=== PATIENT | male | born 1945 | race Caucasian/White ===

== ENCOUNTER → 2016-07-16 | Outpatient (CLI) | payer BC ==
[~2016-07-16] MED LIST: CRG3125 PO; SYN50 PO
[2016-07-16 13:14] LABS: BASO % 0.2 %; BASO ABS # 0.01 K/uL (0-0.2); COMPLETE YES; EOS % 0.9 %; HEMATOCRIT 39.3 % (42-52); IG% 0.2 %; LYMPH % 27.4 %; LYMPH ABS # 1.27 K/uL (1.2-3.4); MEAN CELL VOLUME 92.7 fL (80-100); MEAN CORPUSCULAR HEMOGLOBIN 31.4 pg (25-34); MEAN CORPUSCULAR HGB CONC 33.8 g/dl (32-36); MEAN PLATELET VOLUME 11.7 fL (7.4-10.4); MONO % 6.5 %; NEUT % 64.8 %; PLATELET COUNT 157 K/uL (130-400); RED BLOOD COUNT 4.24 M/uL (4.7-6.1); WHITE BLOOD COUNT 4.63 K/uL (4.8-10.8)
[2016-07-16 13:24] LABS: URINE APPEARANCE CLEAR (CLEAR); URINE BILIRUBIN NEG (NEG); URINE COLOR YELLOW; URINE EPITHELIAL CELL AUTO 0-5 /lpf (0-5); URINE NITRITE NEG (NEG); URINE SPECIFIC GRAVITY 1.009 (1.000-1.030); UROBILINOGEN NEG (NEG)
[2016-07-16 13:28] LABS: MANUAL MICROSCOPIC REQUIRED? NO; REVIEW REQ? NO
[2016-07-16 13:45] LABS: BLOOD UREA NITROGEN 12 mg/dl (7-18); BUN/CREATININE RATIO 7.6 (10-20); CALCIUM 9.2 mg/dl (8.5-10.1); CARBON DIOXIDE 27 mmol/L (21-32); CHLORIDE 107 mmol/L (98-107); GLUCOSE 87 mg/dl (70-99); MAGNESIUM 2.3 mg/dl (1.8-2.4); POTASSIUM 4.1 mmol/L (3.5-5.1); SODIUM 141 mmol/L (136-145)
[2016-07-16 13:48] LABS: ALB/GLOB RATIO 1.2 (0.9-2); ALKALINE PHOSPHATASE 82 U/L (45-117); ALT/SGPT 31 U/L (12-78); AST/SGOT 25 U/L (15-37)
[2016-07-16 14:10] LABS: URINE PROTIEN/CREAT RATIO 0.1 (0-0.2); URINE TOTAL PROTEIN 7.3 mg/dl (0-11.9)
== END | disposition home or self-care (01) ==
LOC: C.LAB1850 12:05
PROVIDERS: ATTEND Internal Medicine Nephrology
DX: N18.3 Chronic kidney disease, stage 3 (moderate) (principal); E55.9 Vitamin D deficiency, unspecified

== ENCOUNTER → 2016-11-19 | Outpatient (CLI) | payer BC ==
[2016-11-19 14:41] LABS: HEMATOCRIT 40.4 % (42-52); MEAN CELL VOLUME 94.2 fL (80-100); MEAN CORPUSCULAR HEMOGLOBIN 31.5 pg (25-34); MEAN CORPUSCULAR HGB CONC 33.4 g/dl (32-36); PLATELET COUNT 188 K/uL (130-400); RED BLOOD COUNT 4.29 M/uL (4.7-6.1); WHITE BLOOD COUNT 5.05 K/uL (4.8-10.8)
[2016-11-19 14:50] LABS: ALT/SGPT 27 U/L (12-78); BLOOD UREA NITROGEN 15 mg/dl (7-18); BUN/CREATININE RATIO 10.1 (10-20); CALCIUM 9.1 mg/dl (8.5-10.1); CARBON DIOXIDE 27 mmol/L (21-32); CHLORIDE 110 mmol/L (98-107); GLUCOSE 93 mg/dl (70-99); MAGNESIUM 2.1 mg/dl (1.8-2.4); POTASSIUM 4.7 mmol/L (3.5-5.1); SODIUM 142 mmol/L (136-145)
[2016-11-19 14:52] LABS: URINE APPEARANCE CLEAR (CLEAR); URINE BILIRUBIN NEG (NEG); URINE COLOR YELLOW; URINE EPITHELIAL CELL AUTO 0-5 /lpf (0-5); URINE NITRITE NEG (NEG); URINE PH 7.5 (4.5-7.5); URINE SPECIFIC GRAVITY 1.012 (1.000-1.030); UROBILINOGEN NEG (NEG)
[2016-11-19 14:53] LABS: ALB/GLOB RATIO 1.3 (0.9-2); ALKALINE PHOSPHATASE 83 U/L (45-117); AST/SGOT 29 U/L (15-37)
[2016-11-19 14:56] LABS: URINE PROTIEN/CREAT RATIO 0.1 (0-0.2); URINE TOTAL PROTEIN 10.1 mg/dl (0-11.9)
[2016-11-19 15:04] LABS: MANUAL MICROSCOPIC REQUIRED? NO; REVIEW REQ? NO
== END | disposition home or self-care (01) ==
LOC: C.LAB1850 12:33
PROVIDERS: ATTEND Internal Medicine Nephrology
DX: E03.9 Hypothyroidism, unspecified (principal); N18.3 Chronic kidney disease, stage 3 (moderate); E55.9 Vitamin D deficiency, unspecified; D64.9 Anemia, unspecified

== ENCOUNTER → 2016-12-04 | Outpatient (CLI) | payer BC | END | disposition home or self-care (01) | LOC: C.LAB 10:39 | PROVIDERS: ATTEND General Practice | DX: A69.20 Lyme disease, unspecified (principal) ==

== ENCOUNTER → 2016-12-14 | Outpatient (CLI) | payer BC ==
--- NOTE | 2016-12-14 09:49 | DIAGNOSTIC IMAGING REPORT ---
ABDOMEN COMPLETE (US) CLINICAL HISTORY: 71 years-old Male with EPIGASTRIC PAIN. Symptoms are acute in nature. COMPARISON: Renal ultrasound 10/15/2015 TECHNIQUE: Multiple real time sonographic images of the abdomen were obtained assessing jasso-scale appearance. FINDINGS: PANCREAS: The pancreas is partially obscured by bowel gas. The visualized portions of the pancreas are normal without focal lesion or pancreatic duct dilatation. LIVER: The liver demonstrates a homogeneous parenchymal echotexture. There is no intrahepatic bile duct dilation, focal lesion, or contour nodularity. Liver measures up to 14.5 cm. There is no ascites. GALLBLADDER: The gallbladder is fluid-filled without cholelithiasis, wall thickening, or pericholecystic fluid. Negative sonographic Salcedo's sign. The common bile duct measures 0.4 cm. RIGHT KIDNEY: The right kidney measures 10.0 x 3.8 x 5.4 cm. Right kidney again appears to be mildly echogenic. No nephrolithiasis or hydronephrosis. LEFT KIDNEY: The left kidney measures 10.1 x 4.6 x 5.1 cm . Partially exophytic cyst of the interpolar left kidney is seen, 1.9 x 1.5 x 1.6 cm. Left kidney is again mildly echogenic. No nephrolithiasis or hydronephrosis. SPLEEN: The spleen measures 7.3 cm and is normal in echotexture. No focal lesions are identified. VASCULATURE: Proximal abdominal aorta measures up to 2.1 cm in AP dimension. Distal abdominal aorta measures up to 2.0 cm. Bilateral common iliac arteries appear normal in caliber measuring up to 1.1 cm. IMPRESSION: 1. No evidence of cholelithiasis, acute cholecystitis or biliary ductal dilation. 2. Mildly increased echogenicity of the renal parenchyma is again seen bilaterally suggesting underlying medical renal disease. The above report was generated using voice recognition software. It may contain grammatical, syntax or spelling errors. Electronically signed by: Elijah Irving M.D. 12/14/2016 9:47 AM Dictated Date/Time: 12/14/2016 9:36 AM
== END | disposition home or self-care (01) ==
LOC: C.ULTR 08:56
PROVIDERS: ATTEND Internal Medicine Gastroenterology
DX: R10.13 Epigastric pain (principal)

== ENCOUNTER → 2016-12-14 | Outpatient (CLI) | payer BC ==
[2016-12-14 11:44] LABS: BASO % 0.5 %; BASO ABS # 0.02 K/uL (0-0.2); COMPLETE YES; EOS % 1.1 %; HEMATOCRIT 42.5 % (42-52); IG% 0.3 %; LYMPH % 31.4 %; LYMPH ABS # 1.17 K/uL (1.2-3.4); MEAN CORPUSCULAR HEMOGLOBIN 31.1 pg (25-34); MEAN CORPUSCULAR HGB CONC 33.4 g/dl (32-36); MONO % 7.8 %; NEUT % 58.9 %; PLATELET COUNT 203 K/uL (130-400); RED BLOOD COUNT 4.57 M/uL (4.7-6.1); WHITE BLOOD COUNT 3.73 K/uL (4.8-10.8)
[2016-12-14 12:09] LABS: ALT/SGPT 26 U/L (12-78); BLOOD UREA NITROGEN 17 mg/dl (7-18); BUN/CREATININE RATIO 11.1 (10-20); CALCIUM 9.2 mg/dl (8.5-10.1); CARBON DIOXIDE 29 mmol/L (21-32); CHLORIDE 109 mmol/L (98-107); GLUCOSE 92 mg/dl (70-99); POTASSIUM 4.3 mmol/L (3.5-5.1); SODIUM 142 mmol/L (136-145)
[2016-12-14 12:12] LABS: ALB/GLOB RATIO 1.3 (0.9-2); ALKALINE PHOSPHATASE 86 U/L (45-117); AST/SGOT 25 U/L (15-37)
[2016-12-20 01:34] LABS: REFERENCE QUEST TEST REPORT
[2016-12-23 18:28] LABS: ANAPLASMA PHAGOCYTOPHIL DNA NOT DETECTED; CANDIDA AB IgG 1.1; CANDIDA AB IgM 0.4; CYTOMEGALOVIRUS IGG AB >10.00 U/ML; EHRLICHIA CHAFF IGG AB <1:64 (<1:64); EHRLICHIA CHAFF IGM AB <1:20 (<1:20); EPSTEIN BARR VIR CAPSID IGG >750.00 U/ML; RMSF IgM AB Not Detected (Not Detected)
== END | disposition home or self-care (01) ==
LOC: C.LAB 10:16
PROVIDERS: ATTEND General Practice
DX: B37.7 Candidal sepsis (principal); A69.20 Lyme disease, unspecified; E03.2 Hypothyroidism due to medicaments and other exogenous substances; E55.9 Vitamin D deficiency, unspecified; B25.9 Cytomegaloviral disease, unspecified; B96.81 Helicobacter pylori [H. pylori] as the cause of diseases classified elsewhere; B60.0 Babesiosis; B27.90 Infectious mononucleosis, unspecified without complication; A77.0 Spotted fever due to Rickettsia rickettsii; A44.0 Systemic bartonellosis; R10.13 Epigastric pain

== ENCOUNTER → 2017-03-18 | Outpatient (CLI) | payer BC ==
[2017-03-18 15:18] LABS: BLOOD UREA NITROGEN 12 mg/dl (7-18); BUN/CREATININE RATIO 7.9 (10-20); CALCIUM 9.3 mg/dl (8.5-10.1); CARBON DIOXIDE 28 mmol/L (21-32); CHLORIDE 104 mmol/L (98-107); CREATININE 1.49 mg/dl (0.60-1.40); GLUCOSE 96 mg/dl (70-99); PHOSPHORUS 3.4 mg/dl (2.5-4.9); POTASSIUM 4.1 mmol/L (3.5-5.1); SODIUM 141 mmol/L (136-145)
[2017-03-18 15:23] LABS: HEMATOCRIT 41.7 % (42-52); MEAN CELL VOLUME 92.3 fL (80-100); MEAN CORPUSCULAR HEMOGLOBIN 31.4 pg (25-34); MEAN CORPUSCULAR HGB CONC 34.1 g/dl (32-36); MEAN PLATELET VOLUME 11.4 fL (7.4-10.4); PLATELET COUNT 195 K/uL (130-400); RED BLOOD COUNT 4.52 M/uL (4.7-6.1); WHITE BLOOD COUNT 3.89 K/uL (4.8-10.8)
[2017-03-18 16:45] LABS: MANUAL MICROSCOPIC REQUIRED? NO; REVIEW REQ? NO; URINE APPEARANCE CLEAR (CLEAR); URINE BILIRUBIN NEG (NEG); URINE COLOR YELLOW; URINE EPITHELIAL CELL AUTO 0-5 /lpf (0-5); URINE NITRITE NEG (NEG); URINE SPECIFIC GRAVITY 1.011 (1.000-1.030); UROBILINOGEN NEG (NEG)
[2017-03-18 16:48] LABS: URINE PROTIEN/CREAT RATIO 0.1 (0-0.2)
== END | disposition home or self-care (01) ==
LOC: C.LAB1850 11:54
PROVIDERS: ATTEND Internal Medicine Nephrology
DX: R25.1 Tremor, unspecified (principal); G20 Parkinson's disease; N18.3 Chronic kidney disease, stage 3 (moderate); D64.9 Anemia, unspecified

== ENCOUNTER → 2017-07-16 | Outpatient (CLI) | payer BC ==
--- NOTE | 2017-07-16 13:48 | DIAGNOSTIC IMAGING REPORT ---
VIDEO SWALLOW HISTORY: Dysphagia R13.10 TECHNIQUE: Video fluoroscopic evaluation of swallowing was performed in the AP and lateral projections by the speech pathology staff. The patient is fed nectar-thick and thin liquid barium, a barium coated wafer, and barium pudding. FLUOROSCOPY TIME: 1.6 minutes. COMPARISON STUDY: None. FINDINGS: Somewhat disordered oral and hypopharyngeal motility. No significant penetration or aspiration identified. Swallowing function is within normal limits. IMPRESSION: 1. Disordered oral and hypopharyngeal motility. No evidence for aspiration. 2. Please see the speech pathologist report for detailed findings and recommendations. The above report was generated using voice recognition software. It may contain grammatical, syntax or spelling errors. Electronically signed by: Paddy Rutledge M.D. 07/16/2017 1:47 PM Dictated Date/Time: 07/16/2017 1:45 PM
--- NOTE | 2017-07-18 16:00 | SWALLOWING EVALUATION ---
REFERRING SPEECH PATHOLOGIST: n/a HISTORY: This 71 year-old man was referred for a VFSS at [facility] in order to address c/o globus sensation. The patient has a PMH significant for hypothyroidism, diverticulosis, and Lyme disease. The patient attributes onset of all dysphagia to effects of Lyme disease. He also demonstrates essential tremors of the upper extremities that he attributes to effects of Lyme disease. He follows with neurology, a Lyme disease specialist, and other physicians and was referred for this study by otolaryngology. Currently the patient's diet level is regular and it consists of a very strict vegan regimen with use of fermented foods. He reports taking no prescription medications. He denies heartburn, but admits to feelings of esophageal fullness at times. PROCEDURE: The patient was seen in the Radiology Department of [facility] for the VFSS. Cursory examination of the oral cavity revealed adequate dentition. Movement of the articulators was WNL. The patient was seated on a stool and was viewed in both the Anterior-Posterior (A-P) and Lateral planes. Volitional phonation exercises completed in the A-P plane revealed bilateral vocal fold movement and vocal intensity within functional limits. In the lateral plane, the patient was given the following boluses: 1 tsp. thin liquid barium x 2, single swallow thin liquid barium self-presented from a cup, sequential swallows of thin liquid barium self-presented from a cup, 1 tsp. nectar-thick liquid barium, single swallow nectar-thick liquid barium self-presented from a cup, and 1 tsp. barium pudding. The cracker bolus was not given d/t the patient's preference to having no gluten. The patient was then repositioned into the A-P plane and given 1/2" barium tablet and water. RESULTS: Oral Stage: Labial seal, lingual control for oral bolus hold, bolus preparation, lingual movement for bolus transfer, oral clearance and initiation of pharyngeal swallowing were all complete/WNL. No oral-stage dysphagia. Pharyngeal Stage: Velar elevation, laryngeal elevation, anterior hyoid excursion, epiglottic inversion, laryngeal vestibular closure all complete. Pharyngeal stripping wave present. Distention and duration of PES opening was partial as evidenced by partial obstruction of bolus flow with pudding bolus (most viscous). This cleared easily and completely with a second swallow. Tongue base retraction mildly weakened. No penetration or aspiration during this study. There was some, likely age-related, mild weakness in the pharynx that did not have a functional impact on the patient's swallowing ability. The pharyngeal stage would be considered normal. Esophageal Stage: A barium tablet passed freely into the stomach. SUMMARY/RECOMMENDATIONS: This patient presents with mild s/s presbydysphagia without evidence of any impact to patient function or patient safety. The following is recommended: 1. Diet as tolerated. 2. Compensatory Strategies: If uncomfortable with oral intake consider the following: using only warm liquids with meals, using a carrier with medications (apple sauce, yogurt, etc.), alternating food and liquid frequently during meals, choosing slippery, loose foods and avoiding dry, doughy, thick foods 3. Consideration of f/u with gastroenterology if GERD is suspected. Pt does not have "burning", but does have sensations of reflux as reported. 4. The patient had overt s/s anxiety and anger re: his health s/p tick bite. Consider treatments to mitigate these issues. A summary of the results and recommendations was discussed with the patient and his immediately following the study. They verbalized understanding. Thank you for referral of this patient. Please contact me at if any additional information is needed.
== END | disposition home or self-care (01) ==
LOC: C.RAD 12:41
PROVIDERS: ATTEND Physician Assistant
DX: R13.10 Dysphagia, unspecified (principal)

== ENCOUNTER → 2017-09-09 | Outpatient (CLI) | payer BC ==
[2017-09-09 14:30] LABS: HEMATOCRIT 43.1 % (42-52); HEMOGLOBIN 14.6 g/dL (14.0-18.0); MEAN CELL VOLUME 92.7 fL (80-100); MEAN CORPUSCULAR HEMOGLOBIN 31.4 pg (25-34); MEAN CORPUSCULAR HGB CONC 33.9 g/dl (32-36); MEAN PLATELET VOLUME 10.6 fL (7.4-10.4); PLATELET COUNT 198 K/uL (130-400); RED CELL DISTRIBUTION WIDTH CV 12.8 % (11.5-14.5); RED CELL DISTRIBUTION WIDTH SD 43.6 fL (36.4-46.3); WHITE BLOOD COUNT 5.19 K/uL (4.8-10.8)
[2017-09-09 14:45] LABS: BLOOD UREA NITROGEN 8 mg/dl (7-18); CALCIUM 8.9 mg/dl (8.5-10.1); CARBON DIOXIDE 28 mmol/L (21-32); CREATININE 1.33 mg/dl (0.60-1.40); GLUCOSE 92 mg/dl (70-99); POTASSIUM 4.4 mmol/L (3.5-5.1); SODIUM 141 mmol/L (136-145)
[2017-09-09 14:46] LABS: PHOSPHORUS 3.1 mg/dl (2.5-4.9)
== END | disposition home or self-care (01) ==
LOC: C.LAB1850 11:44
PROVIDERS: ATTEND Internal Medicine Nephrology
DX: G20 Parkinson's disease (principal); N18.3 Chronic kidney disease, stage 3 (moderate); D64.9 Anemia, unspecified; E55.9 Vitamin D deficiency, unspecified

== ENCOUNTER → 2017-12-11 | Outpatient (CLI) | payer BC | END | disposition home or self-care (01) | LOC: C.LAB1850 08:21 | PROVIDERS: ATTEND Internal Medicine Endocrinology, Diabetes & Metabolism | DX: G20 Parkinson's disease (principal); C61 Malignant neoplasm of prostate; R32 Unspecified urinary incontinence; E03.9 Hypothyroidism, unspecified ==

== ENCOUNTER 2023-11-24 17:04 | Inpatient (IN) ==
--- NOTE | 2023-11-24 17:17 | Emergency Department Note ---
Impression & Plan Rhabdomyolysis, Severe sepsis, Lactic acidosis, Ground-level fall, Elevated troponin ED Provider Note Name: TALA FLORES Age: 78 Sex: Male Arrives Via: Ambulance Informant: Patient (poor historian), neighbor, EMS ED Provider: Amos Dubois MD Chief Complaint: Weakness Impression: As per impressions above Medical Decision Makin-year-old gentleman with history of Parkinson's, dyslipidemia, neuropathy, CKD, BPH who arrives for evaluation of multiple falls and then found minimally responsive laying on a bar chair. It appears his right arm must been hanging over the back of the chair for quite some time as it is now swollen. He does continue to have movement in the hand without significant pain and pulses are intact at this time. It does appear patient must of fallen several times as he does have some areas of bruising as well as some blood in his mouth. He is quite dehydrated appearing. Per neighbor it sounds like he has been eating or drinking well recently possibly not caring for himself very well as his has been in the hospital and is recently placed in a nursing facility. Given history of trauma and altered mental status he was treated as a trauma alert. Chest and pelvis x-ray unremarkable and a CT of the head, neck, chest, abdomen, pelvis was obtained. These were eventually all unremarkable. Extensive laboratory workup obtained given concerns for possible sepsis. WBC elevated, lactate elevated and with concern for these blood cultures were sent he was empirically given IV antibiotics along with 30 mL /kg normal saline IV fluids. Troponin is elevated I suspect this may be secondary to type II NSTEMI versus purely rhabdomyolysis. CK is 13,000 consistent with significant rhabdo. Being fluid resuscitated for possible sepsis as it is. Patient tolerated fluids without significant respiratory distress. 9:45 PM on 11/24/2023.. Sepsis reevaluation was performed. Completed by me. Patient's blood pressure is stable heart rate is in the 70s and he is appearing much improved. Triage/Nursing Notes reviewed by Me Differential:Infection, dehydration, metabolic abnormality, hypo/hyperglycemia, electrolyte disturbance, anemia, hypoxia, cardiac sources, intracerebral event, toxicologic, neurologic, as well as other pathologies. Vital Signs: reviewed and remarkable for no significant abnormalities Interventions: Normal saline bolus 2 L IV, cefepime IV, vancomycin IV Labs:ED labs Reviewed by me and remarkable for multiple abnormal lab findings including elevated CK, elevated lactate, elevated white blood cell count, elevated procalcitonin, elevated troponin amongst others Imagin view chest x-ray as per my interpretation no infiltrate, effusion or fracture or pneumothorax. 1 view pelvis x-ray as per my interpretation no fracture or dislocation. CT of the head, neck, chest, abdomen, pelvis without IV contrast. As per radiologist no acute traumatic findings. See chart for full findings. EKG:Per My Interpretation: Indication weakness: Poor baseline with a heart rate of 75 appears to be sinus rhythm. Unable to determine QTc. Compared to October 14, 2015 appears to have similar morphology though difficult to fully compare. Cardiac Monitoring: An Order was placed for continuous cardiac monitoring. The monitor shows a rate of 70 with a normal sinus rhythm. Disposition:Hospitalization. Condition: Fair History of Present Illness: 78-year-old gentleman arrives for evaluation following multiple falls and trauma. Patient fell yesterday several times that apparently hit his head. He had been seen since they got back it was in his house yesterday. This afternoon was noted to be slumped over a barstool in his house. His right arm was hanging over the back of the chair and he was leaning to the right. Patient notes his right arm is sore primarily in the armpit. Denies any headaches. Denies any blood thinner use. Patient has a history of Parkinson's, hypothyroidism. Patient does have a previous history of CKD according to the chart. Past Medical History:See Below Home Medications:See Below Allergies:See Below Vitals:Blood Pressure: 146/92, Pulse 90, RR 16, T 36.5C, O2 92% on RA Physical Exam: GENERAL: Patient is unwell, ill appearing and in minimal distress. HEAD: AT/NC EENT: Blood dried throughout oropharynx NECK: No stepoffs nor TTP RESPIRATORY: No dyspnea. Clear to auscultation and equal bilaterally. CARDIOVASCULAR: Regular rate and rhythm.No murmur appreciated. GASTROINTESTINAL: Abdomen soft, non-tender, no peritonitis. BACK: No midline tenderness, no CVA tenderness EXTREMITIES: Severe pain with ROM right shoulder. Moderate swelling and discoloration of right arm. Pulses weak but intact on right. ROM hand without pain. Bruising left anterior pelvis. Edema bilateral lower legs, chronic. Weakness all extremities. NEUROLOGIC: Very difficult to hear patient but does appear to be alert and oriented. Significant tremor. Diffuse weakness right arm worse than the rest of the extremities. SKIN: Moderate skin breakdown with developing ulceration over the right buttock. No rash, no jaundice, no diaphoresis. GCS: 13 (eyes 3, motor 6, verbal 4) ED Course: Times/Reassessments: Patient does seem to be improving with some IV fluids. His more interactive Critical Care: I have personally spent 35 minutes of critical care time in the direct management of this patient. Acute altered mental status with multiple falls found to be in severe rhabdomyolysis with severe sepsis requiring fluid resuscitation and coordination of care.. This was a life/limb threatening event. This 35 minutes is in excess of all separately billable procedures. Amos Dubois MD Past Med/Surg History Problem List (Updated 11/24/23 @ 23:20 by Amos Dubois MD) Elevated troponin (Acute) Ground-level fall (Acute) Lactic acidosis (Acute) Severe sepsis (Acute) Rhabdomyolysis (Acute) Rhabdomyolysis BPH (benign prostatic hyperplasia) Chronic kidney disease, stage 3a Flank pain Cervicalgia Anemia Vitamin D deficiency B12 deficiency Peripheral neuropathy Hypercholesteremia Parkinsons disease H/o Lyme disease Tremor Insomnia (Acute) Anxiety Mixed action and resting tremor Essential tremor Vitamin D deficiency Chronic kidney disease, stage III (moderate) Diverticulosis of colon (without mention of hemorrhage) Febrile illness Hypothyroidism, unspecified Neutropenia Medical History Chronic kidney disease, stage 3a Flank pain Essential tremor Vitamin D deficiency Chronic kidney disease, stage III (moderate) Social History Smoking Status: Never smoker Hx Alcohol Use: No Hx Substance Use: No Preferred Language: Jamaican Visual Impairment: No Limitations Hearing Ability: Normal Beliefs That Will Affect Care: None Current Living Situation: Spouse current occupational status: retired Feels Safe at Home: Yes Diet: regular Seatbelt Use: always Do you think of yourself as: straight/heterosexual Gender Identity: Male Assistive Devices: Walker Allergies Allergies Allergy/AdvReac Type Severity Reaction Status Date / Time gluten Allergy Intermediate GI SYMPTOMS Verified 11/24/23 17:44 milk Allergy Intermediate GI SYMPTOMS Verified 11/24/23 17:44 levofloxacin AdvReac Severe Patient Verified 11/24/23 17:44 states it makes him deathly sick. chicken derived AdvReac Intermediate GI SYMPTOMS Verified 11/24/23 17:44 Grain AdvReac Intermediate GI SYMPTOMS Verified 11/24/23 17:44 Home Meds Home Medications Medication Instructions Recorded Confirmed ergocalciferol (vitamin D2) 1,250 1,250 mcg PO MONTHLY 11/24/23 11/24/23 mcg (50,000 unit) capsule levothyroxine 50 mcg tablet 50 mcg PO Q OTHER DAY 11/24/23 11/24/23 levothyroxine 75 mcg tablet 75 mcg PO Q OTHER DAY 11/24/23 11/24/23 Previous Rx's Medication Instructions Recorded carbidopa 25 mg-levodopa 100 mg 2 tab (2 x 25-100 mg) PO QID 90 11/08/23 tablet (Sinemet) days #720 Tabs Results & Data (ED) Vital Signs Vital Signs - 24 hr 11/24/23 17:13 11/24/23 17:13 11/24/23 17:13 Temperature 36.5 C 36.5 C 36.5 C Temperature Source Oral Oral Pulse Rate 93 H 93 H Pulse Rate [Apical] 93 H Pulse Rhythm [Apical] Pulse Strength [Apical] Respiratory Rate 20 20 20 Respiratory Effort / Characteristics Non-Labored Spontaneous Non-Labored Spontaneous Respiratory Depth Normal Normal Respiratory Pattern Blood Pressure 151/111 H Blood Pressure [Left Arm] 151/111 H Blood Pressure Mean 124 Blood Pressure Mean [Left Arm] 124 Blood Pressure Position Lying Blood Pressure Position [Left Arm] Lying Pulse Oximetry 98 98 98 Oxygen Delivery Method Room Air Room Air Room Air Sepsis Recent Fever Within 48 Hours No Sepsis New/Unexplained Change in Mental Status N/A Sepsis Action Taken by Nursing No Action Required 11/24/23 17:44 11/24/23 17:50 11/24/23 17:56 Temperature Temperature Source Pulse Rate 83 Pulse Rate [Apical] 85 84 Pulse Rhythm [Apical] Pulse Strength [Apical] Respiratory Rate 18 18 Respiratory Effort / Characteristics Spontaneous Spontaneous Respiratory Depth Normal Respiratory Pattern Blood Pressure Blood Pressure [Left Arm] 160/94 H 150/91 H Blood Pressure Mean Blood Pressure Mean [Left Arm] 116 110 Blood Pressure Position Blood Pressure Position [Left Arm] Lying Pulse Oximetry 99 98 Oxygen Delivery Method Room Air Room Air Sepsis Recent Fever Within 48 Hours Sepsis New/Unexplained Change in Mental Status Sepsis Action Taken by Nursing 11/24/23 19:24 11/24/23 20:00 11/24/23 21:00 Temperature Temperature Source Pulse Rate 63 Pulse Rate [Apical] 81 118 H Pulse Rhythm [Apical] Regular Regular Pulse Strength [Apical] Normal Normal Respiratory Rate 20 18 18 Respiratory Effort / Characteristics Non-Labored Spontaneous Non-Labored Spontaneous Respiratory Depth Normal Normal Respiratory Pattern Regular Regular Blood Pressure 151/91 H Blood Pressure [Left Arm] 173/92 H 167/80 H Blood Pressure Mean 111 Blood Pressure Mean [Left Arm] 119 109 Blood Pressure Position Blood Pressure Position [Left Arm] Lying Lying Pulse Oximetry 100 96 96 Oxygen Delivery Method Room Air Room Air Sepsis Recent Fever Within 48 Hours Sepsis New/Unexplained Change in Mental Status Sepsis Action Taken by Nursing 11/24/23 22:00 Temperature Temperature Source Pulse Rate Pulse Rate [Apical] 79 Pulse Rhythm [Apical] Regular Pulse Strength [Apical] Normal Respiratory Rate 18 Respiratory Effort / Characteristics Non-Labored Spontaneous Respiratory Depth Normal Respiratory Pattern Regular Blood Pressure Blood Pressure [Left Arm] 146/84 H Blood Pressure Mean Blood Pressure Mean [Left Arm] 104 Blood Pressure Position Blood Pressure Position [Left Arm] Lying Pulse Oximetry 98 Oxygen Delivery Method Room Air Sepsis Recent Fever Within 48 Hours Sepsis New/Unexplained Change in Mental Status Sepsis Action Taken by Nursing Laboratory Data 11/24/23 17:20 11/24/23 17:20 Lab Results 11/24/23 11/24/23 11/24/23 Range/Units 17:20 17:25 17:52 WBC 21.10 H (4.8-10.8) K/ul RBC 4.48 L (4.70-6.10) M/uL Hgb 13.9 L (14.0-18.0) g/dl POC Hgb 15.0 (14.0-18.0) g/dl Hct 41.3 L (42.0-52.0) % POC Hct 44 (42-52) % MCV 92.2 (80.0-100.0) fL MCH 31.0 (25.0-34.0) pg MCHC 33.7 (32.0-36.0) g/dL RDW Std Deviation 42.4 (36.4-46.3) fL RDW Coeff of [place] 12.6 (11.5-14.5) % Plt Count 253 (130-400) K/uL MPV 10.0 (9.4-12.4) fL Immature Gran % (Auto) 0.9 % Neut % (Auto) 87.9 % Lymph % (Auto) 3.1 % [place] % (Auto) 8.0 % Eos % (Auto) 0.0 % Baso % (Auto) 0.1 % Neut # (Auto) 18.55 H (1.40-6.50) K/uL Lymph # (Auto) 0.66 L (1.20-3.40) K/uL [place] # (Auto) 1.69 H (0.11-0.59) K/uL Eos # (Auto) 0.00 (0.00-0.50) K/uL Baso # (Auto) 0.02 (0.00-0.20) K/uL Immature Gran # (Auto) 0.18 (0.01-0.20) K/uL PT 10.7 (9.0-12.0) Seconds INR 1.0 (0.9-1.1) POC Sodium 142 (135-144) mmol/L Sodium 143 (136-145) mmol/L POC Potassium 4.1 (3.3-5.0) mmol/L Potassium 4.2 (3.5-5.1) mmol/L POC Chloride 105 (101-112) mmol/L Chloride 104 (98-107) mmol/L Carbon Dioxide 22 (21-32) mmol/L POC Total CO2 20 L (24-31) mmol/L Anion Gap 17 H (3-11) POC Anion Gap 22.0 (16-25) mmol/L POC BUN 44 H (7-18) mg/dl BUN 50 H (6-23) mg/dl Creatinine 1.68 H (0.6-1.4) mg/dl POC Creatinine 1.8 H (0.6-1.3) mg/dl Est Cr Clr Drug Dosing 34.1 ml/min Est GFR ( Amer) 44.7 ml/min Est GFR (Non-Af Amer) 38.6 ml/min BUN/Creatinine Ratio 29.8 H (10-20) Glucose 136 H (70-99(Fasting)) mg/dl POC Glucose (other) 130 H (70-99) mg/dl Lactate 2.4 H* (0.4-2.0) mmol/L Calcium 9.8 (8.6-10.3) mg/dl POC Ioniz Calcium Job 1.15 (1.12-1.32) mmol/l Magnesium 2.5 H (1.7-2.4) mg/dl Total Bilirubin 1.1 H (0.2-1.0) mg/dl Direct Bilirubin 0.3 H (0-0.2) mg/dl AST 314 H (13-39) U/L ALT 80 H (7-52) U/L Alkaline Phosphatase 78 (34-104) U/L Total Creatine Kinase 08500 H (30-223) U/L Troponin I High Sens 85.9 H* (0-20) pg/ml Total Protein 7.0 (6.0-8.3) gm/dl Albumin 4.2 (3.4-5.0) gm/dl Procalcitonin 1.82 H (0-0.5) ng/ml Urine Color Urine Appearance (Clear) Urine pH (4.5-7.5) Ur Specific [place] (1.000-1.030) Urine Protein (Negative) Urine Glucose (UA) (Negative) Urine Ketones (Negative) Urine Blood (Negative) Urine Nitrite (Negative) Urine Bilirubin (Negative) Urine Urobilinogen (Negative) Ur Leukocyte Esterase (Negative) Urine WBC (Auto) (0-5) /hpf Urine RBC (Auto) (0-2) /hpf U Hyaline Cast (Auto) (0-2) /lpf U Epithel Cells (Auto) (0-2) /hpf Urine Bacteria (Auto) (None Seen) Hyaline Casts (None Presnt) /lpf Granular Casts (None Prsent) /lpf SARS-CoV-2 (PCR) (Negative) Influenza Type A (PCR) (Neg) Influenza Type B (PCR) (Neg) RSV (RT-PCR) (Neg) 11/24/23 11/24/23 11/24/23 Range/Units 17:56 18:40 19:07 WBC (4.8-10.8) K/ul RBC (4.70-6.10) M/uL Hgb (14.0-18.0) g/dl POC Hgb (14.0-18.0) g/dl Hct (42.0-52.0) % POC Hct (42-52) % MCV (80.0-100.0) fL MCH (25.0-34.0) pg MCHC (32.0-36.0) g/dL RDW Std Deviation (36.4-46.3) fL RDW Coeff of [place] (11.5-14.5) % Plt Count (130-400) K/uL MPV (9.4-12.4) fL Immature Gran % (Auto) % Neut % (Auto) % Lymph % (Auto) % [place] % (Auto) % Eos % (Auto) % Baso % (Auto) % Neut # (Auto) (1.40-6.50) K/uL Lymph # (Auto) (1.20-3.40) K/uL [place] # (Auto) (0.11-0.59) K/uL Eos # (Auto) (0.00-0.50) K/uL Baso # (Auto) (0.00-0.20) K/uL Immature Gran # (Auto) (0.01-0.20) K/uL PT (9.0-12.0) Seconds INR (0.9-1.1) POC Sodium (135-144) mmol/L Sodium (136-145) mmol/L POC Potassium (3.3-5.0) mmol/L Potassium (3.5-5.1) mmol/L POC Chloride (101-112) mmol/L Chloride (98-107) mmol/L Carbon Dioxide (21-32) mmol/L POC Total CO2 (24-31) mmol/L Anion Gap (3-11) POC Anion Gap (16-25) mmol/L POC BUN (7-18) mg/dl BUN (6-23) mg/dl Creatinine (0.6-1.4) mg/dl POC Creatinine (0.6-1.3) mg/dl Est Cr Clr Drug Dosing ml/min Est GFR ( Amer) ml/min Est GFR (Non-Af Amer) ml/min BUN/Creatinine Ratio (10-20) Glucose (70-99(Fasting)) mg/dl POC Glucose (other) (70-99) mg/dl Lactate (0.4-2.0) mmol/L Calcium (8.6-10.3) mg/dl POC Ioniz Calcium Job (1.12-1.32) mmol/l Magnesium (1.7-2.4) mg/dl Total Bilirubin (0.2-1.0) mg/dl Direct Bilirubin (0-0.2) mg/dl AST (13-39) U/L ALT (7-52) U/L Alkaline Phosphatase (34-104) U/L Total Creatine Kinase (30-223) U/L Troponin I High Sens 76.0 H* (0-20) pg/ml Total Protein (6.0-8.3) gm/dl Albumin (3.4-5.0) gm/dl Procalcitonin (0-0.5) ng/ml Urine Color Yellow Urine Appearance Clear (Clear) Urine pH 6.0 (4.5-7.5) Ur Specific [place] 1.025 (1.000-1.030) Urine Protein 2+ H (Negative) Urine Glucose (UA) Negative (Negative) Urine Ketones 2+ H (Negative) Urine Blood 3+ H (Negative) Urine Nitrite Negative (Negative) Urine Bilirubin Negative (Negative) Urine Urobilinogen Negative (Negative) Ur Leukocyte Esterase Trace H (Negative) Urine WBC (Auto) 0-5 (0-5) /hpf Urine RBC (Auto) 0-2 (0-2) /hpf U Hyaline Cast (Auto) 6-10 H (0-2) /lpf U Epithel Cells (Auto) 3-5 H (0-2) /hpf Urine Bacteria (Auto) None Seen (None Seen) Hyaline Casts Present A (None Presnt) /lpf Granular Casts Present A (None Prsent) /lpf SARS-CoV-2 (PCR) NEGATIVE (Negative) Influenza Type A (PCR) Negative (Neg) Influenza Type B (PCR) Negative (Neg) RSV (RT-PCR) Negative (Neg) 11/24/23 Range/Units 20:00 WBC (4.8-10.8) K/ul RBC (4.70-6.10) M/uL Hgb (14.0-18.0) g/dl POC Hgb (14.0-18.0) g/dl Hct (42.0-52.0) % POC Hct (42-52) % MCV (80.0-100.0) fL MCH (25.0-34.0) pg MCHC (32.0-36.0) g/dL RDW Std Deviation (36.4-46.3) fL RDW Coeff of [place] (11.5-14.5) % Plt Count (130-400) K/uL MPV (9.4-12.4) fL Immature Gran % (Auto) % Neut % (Auto) % Lymph % (Auto) % [place] % (Auto) % Eos % (Auto) % Baso % (Auto) % Neut # (Auto) (1.40-6.50) K/uL Lymph # (Auto) (1.20-3.40) K/uL [place] # (Auto) (0.11-0.59) K/uL Eos # (Auto) (0.00-0.50) K/uL Baso # (Auto) (0.00-0.20) K/uL Immature Gran # (Auto) (0.01-0.20) K/uL PT (9.0-12.0) Seconds INR (0.9-1.1) POC Sodium (135-144) mmol/L Sodium (136-145) mmol/L POC Potassium (3.3-5.0) mmol/L Potassium (3.5-5.1) mmol/L POC Chloride (101-112) mmol/L Chloride (98-107) mmol/L Carbon Dioxide (21-32) mmol/L POC Total CO2 (24-31) mmol/L Anion Gap (3-11) POC Anion Gap (16-25) mmol/L POC BUN (7-18) mg/dl BUN (6-23) mg/dl Creatinine (0.6-1.4) mg/dl POC Creatinine (0.6-1.3) mg/dl Est Cr Clr Drug Dosing ml/min Est GFR ( Amer) ml/min Est GFR (Non-Af Amer) ml/min BUN/Creatinine Ratio (10-20) Glucose (70-99(Fasting)) mg/dl POC Glucose (other) (70-99) mg/dl Lactate 1.2 (0.4-2.0) mmol/L Calcium (8.6-10.3) mg/dl POC Ioniz Calcium Job (1.12-1.32) mmol/l Magnesium (1.7-2.4) mg/dl Total Bilirubin (0.2-1.0) mg/dl Direct Bilirubin (0-0.2) mg/dl AST (13-39) U/L ALT (7-52) U/L Alkaline Phosphatase (34-104) U/L Total Creatine Kinase (30-223) U/L Troponin I High Sens (0-20) pg/ml Total Protein (6.0-8.3) gm/dl Albumin (3.4-5.0) gm/dl Procalcitonin (0-0.5) ng/ml Urine Color Urine Appearance (Clear) Urine pH (4.5-7.5) Ur Specific [place] (1.000-1.030) Urine Protein (Negative) Urine Glucose (UA) (Negative) Urine Ketones (Negative) Urine Blood (Negative) Urine Nitrite (Negative) Urine Bilirubin (Negative) Urine Urobilinogen (Negative) Ur Leukocyte Esterase (Negative) Urine WBC (Auto) (0-5) /hpf Urine RBC (Auto) (0-2) /hpf U Hyaline Cast (Auto) (0-2) /lpf U Epithel Cells (Auto) (0-2) /hpf Urine Bacteria (Auto) (None Seen) Hyaline Casts (None Presnt) /lpf Granular Casts (None Prsent) /lpf SARS-CoV-2 (PCR) (Negative) Influenza Type A (PCR) (Neg) Influenza Type B (PCR) (Neg) RSV (RT-PCR) (Neg) Administered Medications Discontinued Medications Sodium Chloride (Nss) 1,000 mls @ 999 mls/hr IV .Q1H1M ONE Stop: 11/24/23 18:13 Last Infusion: 11/24/23 19:00 Dose: Infused Documented By: Admin: 11/24/23 17:52 Dose: 999 mls/hr Documented By: ANGÉLICA Cefepime HCl (Maxipime) 2,000 mg in 20 mls @ 5 mls/min IV NOW STA; Protocol Stop: 11/24/23 18:11 Last Admin: 11/24/23 18:42 Dose: 5 mls/min Documented By: ANGÉLICA Vancomycin HCl 1,250 mg/ (Sodium Chloride) 525 mls @ 200 mls/hr IV NOW ONE Stop: 11/24/23 20:45 Last Infusion: 11/24/23 21:43 Dose: Infused Documented By: Admin: 11/24/23 19:05 Dose: 200 mls/hr Documented By: NIR Sodium Chloride (Nss) 1,000 mls @ 999 mls/hr IV .Q1H1M ONE Stop: 11/24/23 20:05 Last Infusion: 11/24/23 21:10 Dose: Infused Documented By: Admin: 11/24/23 19:09 Dose: 999 mls/hr Documented By: NIR Imaging Data Radiologist's Impression: Cervical Spine CT 11/24/23 17:[address] DOSE: HISTORY: fall, trauma TECHNIQUE: Multiaxial CT images of the cervical spine were performed and reformatted in the sagittal and coronal plane without the use of contrast. A dose lowering technique was utilized adhering to the principles of ALARA. COMPARISON: None. FINDINGS: No fractures. No subluxation. Prevertebral soft tissues and the C1-C2 interval are intact. No pneumothorax. IMPRESSION: No fractures within the cervical spine. ACT 112: Negative or not required by law. Electronically signed by: Slim Ordoñez M.D. 11/24/2023 6:[address] 11/24/23 17:[address] DOSE: HISTORY: trauma to head 24 hrs ago TECHNIQUE: Multiaxial CT images of the head were performed without the use of intravenous contrast. Automated exposure control was utilized for this study. A dose lowering technique was utilized adhering to the principles of ALARA. Comparison: Head CT 10/13/2015. Findings: There is a small retention cyst within the left maxillary sinus. The left mastoid air cells are clear. There are are a few partially opacified right inferior mastoid air cells. The calvarium and skull base are intact. There is no mass, hematoma, midline shift, acute infarct. White matter hypodensity is nonspecific but suggestive of microvascular ischemic change. The ventricles and sulci demonstrate mild age-related involutional changes. Impression: No acute intracranial abnormality. ACT 112: Negative or not required by law. Electronically signed by: Slim Ordoñez M.D. 11/24/2023 6:33 PM Chest X-Ray 11/24/23 17:12 XR chest 1V portable HISTORY: fall, weakness COMPARISON: Chest 10/13/2015. FINDINGS: The lungs are clear. Cardiac silhouette is normal in size. No pleural effusions. No pneumothorax. IMPRESSION: No acute process. ACT 112: Negative or not required by law. Electronically signed by: Slim Ordoñez M.D. 11/24/2023 6:26 PM Pelvis X-Ray 11/24/23 17:21 XR pelvis 1-2V routine CLINICAL HISTORY: trauma COMPARISON STUDY: None. FINDINGS: No fracture or dislocation within the pelvis or hips. The sacrum is intact. Mild degenerative changes within the bilateral hips. Surgical clips seen within the right deep pelvis. Soft tissues are unremarkable. IMPRESSION: No fracture or dislocation within the pelvis or hips. ACT 112: Negative or not required by law. Electronically signed by: Slim Ordoñez M.D. 11/24/2023 6:29 PM Abdomen/Pelvis CT 11/24/23 17:28 CT chest diagnostic wo con, CT abd pelvis wo con CT DOSE: 2275.95 mGy.cm HISTORY: trauma. (PO) TECHNIQUE: Multiaxial CT images of the chest, abdomen, and pelvis were performed without contrast. A dose lowering technique was utilized adhering to the principles of ALARA. COMPARISON: None. FINDINGS: Chest CT: The central airways are patent. No pneumothorax. No pleural effusions. There is a punctate calcified granuloma within the left upper lobe. There is a 4 mm subpleural nodule within the base of the left lower lobe on image 265. There are few additional scattered micronodules within the periphery of the upper lobes measure between 1 and 2 mm in size. These are likely benign. No focal lung consolidations to suggest a pneumonia. No evidence for pulmonary edema. No acute fractures within the chest. The heart is normal in size. No pericardial effusion. Mild calcified plaque within the normal caliber thoracic aorta. No mediastinal or hilar lymphadenopathy. Normal caliber esophagus. Abdomen/pelvis CT: No pneumoperitoneum. No pneumatosis. No acute fractures. Streak artifact from the patient's overlapping left arm results in suboptimal evaluation of the abdomen and pelvis. The unenhanced liver, gallbladder, pancreas, spleen, and right kidney are unremarkable. There is bilateral adrenal gland thickening. This is likely age-related. There is a 2.4 cm exophytic hypodense lesion within the left kidney. This favors a cyst. No hydronephrosis. Calcified plaque within the normal caliber abdominal aorta. No retroperitoneal hematoma or lymphadenopathy. No pelvic fluid. The bladder is unremarkable. Suboptimal evaluation for bowel pathology due to the lack of intravenous and oral contrast. However, there is no definite bowel wall thickening or obstruction. [id number] fecal retention. IMPRESSION: 1. No acute traumatic process within the chest, abdomen, or pelvis. 2. A 4 mm indeterminate subpleural nodule within the left lower lobe. Please refer to the chart below for recommended follow-up. 3. Additional findings as described above. Please refer to below summary of Fleischner criteria recommendations for follow- up of incidental CT nodules (Ananda Daugherty, Guidelines for management of small pulmonary nodules detected on CT scans: A statement from the Fleischner Society, Radiology 237: [phone].) SOLID NODULES Solitary nodule size: <6 mm * Low risk patients: no follow-up needed * high risk patients: optional CT at 12 months Solitary nodule size: 6-8 mm * Low risk patients: follow-up at 6-12 months, then consider further follow-up at 18-24 months * high risk patients: initial follow-up CT at 6-12 months and then at 18-24 months if no change Solitary nodule size: >8 mm * either low or high risk patients - consider follow-up CT at 3 months, and/or CT-PET, and/or biopsy Multiple nodules size: <6 mm * Low risk patients: no routine follow-up * high risk patients: optional CT at 12 months Multiple nodules size: 6-8 mm * Low risk patients: follow-up at 3-6 months, then consider further follow-up at 18-24 months * high risk patients: follow-up at 3-6 months, then at 18-24 months if no change Multiple nodules size: >8 mm * Low risk patients: follow-up at 3-6 months, then consider further follow-up at 18-24 months * high risk patients: follow-up at 3-6 months, then at 18-24 months if no change Note: newly detected indeterminate nodule in persons 35 years of age or older. * Low risk patients: minimal or absent history of smoking and/or other known risk factors * high risk patients: history of smoking or of other known risk factors (e.g. first degree relative with lung cancer, or exposure to asbestos, radon, uranium) * if a nodule up to 8 mm is partly solid or is ground glass further follow-up is required after 24 months to exclude possible slow growing adenocarcinoma (LEXUS) SUBSOLID NODULES Solitary pure ground-glass nodule * nodule size <6 mm - no CT follow-up required * nodule size >=6 mm - follow-up CT at 6-12 months, then every 2 years until 5 years Solitary part-solid nodule * nodule size <6 mm - no CT follow-up required * nodule size >=6 mm - follow-up CT at 3-6 months. If unchanged, and solid component remains <6 mm, then annual follow-up for 5 years Multiple subsolid nodules * nodule size <6 mm - follow-up CT at 3-6 months, consider further follow-up at 2 and 4 years if stable * nodule size >=6 mm - follow-up CT at 3-6 months, subsequent management based on the most suspicious nodule(s) ACT 112: Negative or not required by law. Electronically signed by: Slim Ordoñez M.D. 11/24/2023 6:[address] 11/24/23 17:28 CT chest diagnostic wo con, CT abd pelvis wo con CT DOSE: 2275.95 mGy.cm HISTORY: trauma. (PO) TECHNIQUE: Multiaxial CT images of the chest, abdomen, and pelvis were performed without contrast. A dose lowering technique was utilized adhering to the principles of ALARA. COMPARISON: None. FINDINGS: Chest CT: The central airways are patent. No pneumothorax. No pleural effusions. There is a punctate calcified granuloma within the left upper lobe. There is a 4 mm subpleural nodule within the base of the left lower lobe on image 265. There are few additional scattered micronodules within the periphery of the upper lobes measure between 1 and 2 mm in size. These are likely benign. No focal lung consolidations to suggest a pneumonia. No evidence for pulmonary edema. No acute fractures within the chest. The heart is normal in size. No pericardial effusion. Mild calcified plaque within the normal caliber thoracic aorta. No mediastinal or hilar lymphadenopathy. Normal caliber esophagus. Abdomen/pelvis CT: No pneumoperitoneum. No pneumatosis. No acute fractures. Streak artifact from the patient's overlapping left arm results in suboptimal evaluation of the abdomen and pelvis. The unenhanced liver, gallbladder, pancreas, spleen, and right kidney are unremarkable. There is bilateral adrenal gland thickening. This is likely age-related. There is a 2.4 cm exophytic hypodense lesion within the left kidney. This favors a cyst. No hydronephrosis. Calcified plaque within the normal caliber abdominal aorta. No retroperitoneal hematoma or lymphadenopathy. No pelvic fluid. The bladder is unremarkable. Suboptimal evaluation for bowel pathology due to the lack of intravenous and oral contrast. However, there is no definite bowel wall thickening or obstruction. [id number] fecal retention. IMPRESSION: 1. No acute traumatic process within the chest, abdomen, or pelvis. 2. A 4 mm indeterminate subpleural nodule within the left lower lobe. Please refer to the chart below for recommended follow-up. 3. Additional findings as described above. Please refer to below summary of Fleischner criteria recommendations for follow- up of incidental CT nodules (Ananda Daugherty, Guidelines for management of small pulmonary nodules detected on CT scans: A statement from the Fleischner Society, Radiology 237: [phone].) SOLID NODULES Solitary nodule size: <6 mm * Low risk patients: no follow-up needed * high risk patients: optional CT at 12 months Solitary nodule size: 6-8 mm * Low risk patients: follow-up at 6-12 months, then consider further follow-up at 18-24 months * high risk patients: initial follow-up CT at 6-12 months and then at 18-24 months if no change Solitary nodule size: >8 mm * either low or high risk patients - consider follow-up CT at 3 months, and/or CT-PET, and/or biopsy Multiple nodules size: <6 mm * Low risk patients: no routine follow-up * high risk patients: optional CT at 12 months Multiple nodules size: 6-8 mm * Low risk patients: follow-up at 3-6 months, then consider further follow-up at 18-24 months * high risk patients: follow-up at 3-6 months, then at 18-24 months if no change Multiple nodules size: >8 mm * Low risk patients: follow-up at 3-6 months, then consider further follow-up at 18-24 months * high risk patients: follow-up at 3-6 months, then at 18-24 months if no change Note: newly detected indeterminate nodule in persons 35 years of age or older. * Low risk patients: minimal or absent history of smoking and/or other known risk factors * high risk patients: history of smoking or of other known risk factors (e.g. first degree relative with lung cancer, or exposure to asbestos, radon, uranium) * if a nodule up to 8 mm is partly solid or is ground glass further follow-up is required after 24 months to exclude possible slow growing adenocarcinoma (LEXUS) SUBSOLID NODULES Solitary pure ground-glass nodule * nodule size <6 mm - no CT follow-up required * nodule size >=6 mm - follow-up CT at 6-12 months, then every 2 years until 5 years Solitary part-solid nodule * nodule size <6 mm - no CT follow-up required * nodule size >=6 mm - follow-up CT at 3-6 months. If unchanged, and solid component remains <6 mm, then annual follow-up for 5 years Multiple subsolid nodules * nodule size <6 mm - follow-up CT at 3-6 months, consider further follow-up at 2 and 4 years if stable * nodule size >=6 mm - follow-up CT at 3-6 months, subsequent management based on the most suspicious nodule(s) ACT 112: Negative or not required by law. Electronically signed by: Slim Ordoñez M.D. 11/24/2023 6:50 PM Discharge Plan Visit Data Chief Complaint: Trauma Stated Complaint: FALL, SEMI ALERT, UNABLE TO AMBULATE ED Provider: Amos Dubois Discharge Problem: Rhabdomyolysis, Severe sepsis, Lactic acidosis, Ground-level fall, Elevated troponin Patient Disposition: Admitted As Inpatient Discharge Instructions Interventions: ED Discharge Assessment Last Done: 11/24/23 23:08 Forms Stand Alone Forms: [facility] Prescriptions Prescriptions: No Action carbidopa-levodopa [Sinemet] 25-100 mg tablet 2 tab PO QID 90 Days Qty: 720 3RF levothyroxine 75 mcg tablet 75 mcg PO Q OTHER DAY Rx Instructions: ALTERNATES 75 MCG AND 50 MCG EVERY OTHER DAY. levothyroxine 50 mcg tablet 50 mcg PO Q OTHER DAY Rx Instructions: ALTERNATES 50 MCG AND 75 MCG EVERY OTHER DAY. ergocalciferol (vitamin D2) 1,250 mcg (50,000 unit) capsule 1,250 mcg PO MONTHLY Rx Instructions: 1,250 mcg PO monthly as maintenance therapy; Referrals Referrals: PCP,NO [Primary Care Provider] - Discharge Problem: Rhabdomyolysis Qualifiers: Rhabdomyolysis type: traumatic Encounter type: initial encounter Qualified Code(s): T79.6XXA - Traumatic ischemia of muscle, initial encounter
[2023-11-24 17:37] LABS: Basophils # (auto) 0.02 K/uL (0.00-0.20); Basophils % (auto) 0.1 %; Hematocrit (blood only) 41.3 % (42.0-52.0); Hemoglobin 13.9 g/dl (14.0-18.0); Immature Granulocytes # (auto) 0.18 K/uL (0.01-0.20); Immature Granulocytes % (auto) 0.9 %; Lymphocytes # (auto) 0.66 K/uL (1.20-3.40); Lymphocytes % (auto) 3.1 %; Mean Corpuscular Hgb Conc 33.7 g/dL (32.0-36.0); Mean Corpuscular Volume 92.2 fL (80.0-100.0); Monocytes # (auto) 1.69 K/uL (0.11-0.59); Neutrophils # (auto) 18.55 K/uL (1.40-6.50); Neutrophils % (auto) 87.9 %; Platelet Count 253 K/uL (130-400); RDW Coefficient of Variation 12.6 % (11.5-14.5); RDW Standard Deviation 42.4 fL (36.4-46.3); Red Blood Count 4.48 M/uL (4.70-6.10)
[2023-11-24 17:38] LABS: iSTAT Creatinine 1.8 mg/dl (0.6-1.3); iSTAT Ionized Calcium 1.15 mmol/l (1.12-1.32); iSTAT Potassium 4.1 mmol/L (3.3-5.0)
[2023-11-24] MEDS: SODIUM CHLORIDE 0.9% 1,000 ML IV ONE ×2 (17:52→19:09)
[2023-11-24 17:55] LABS: BUN Creatinine Ratio 29.8 (10-20); Calcium 9.8 mg/dl (8.6-10.3); Creatinine Clr Calc Pharmacy 34.1 ml/min; Est GFR (African American) 44.7 ml/min; Est GFR (Non-African American) 38.6 ml/min; Potassium 4.2 mmol/L (3.5-5.1)
[2023-11-24 18:04] LABS: Prothrombin Time 10.7 Seconds (9.0-12.0)
[2023-11-24 18:06] LABS: Troponin I High Sensitivity 85.9 pg/ml (0-20)
[2023-11-24 18:08] LABS: Albumin Level 4.2 gm/dl (3.4-5.0); Bilirubin Direct 0.3 mg/dl (0-0.2); Bilirubin,Total 1.1 mg/dl (0.2-1.0); Magnesium 2.5 mg/dl (1.7-2.4)
[2023-11-24] MEDS ORDERED: VANCOMYCIN CONSULT ACTIVE PRN (18:08)
--- NOTE | 2023-11-24 18:27 | XRay Report ---
XR chest 1V portable HISTORY: fall, weakness COMPARISON: Chest 10/13/2015. FINDINGS: The lungs are clear. Cardiac silhouette is normal in size. No pleural effusions. No pneumot horax. IMPRESSION: No acute process. ACT 112: Negative or not required by law. Electronically signed by: Slim Ordoñez M.D. 11/24/2023 6:26 PM
--- NOTE | 2023-11-24 18:31 | XRay Report ---
XR pelvis 1-2V routine CLINICAL HISTORY: trauma COMPARISON STUDY: None. FINDINGS: No fracture or dislocation within the pelvis or hips. The sacrum is intact. Mild degenerati ve changes within the bilateral hips. Surgical clips seen within the right deep pelvis. Soft tissues are unremarkable. IMPRESSION: No fracture or dislocation within the pelvis or hips. ACT 112: Negative or not required by law. Electronically signed by: Slim Ordoñez M.D. 11/24/2023 6:29 PM
--- NOTE | 2023-11-24 18:35 | CT Scan Report ---
HEAD CT NONCONTRAST CT DOSE: HISTORY: trauma to head 24 hrs ago TECHNIQUE: Multiaxial CT images of the head were performed without the use of intravenous contrast. A utomated exposure control was utilized for this study. A dose lowering technique was utilized adheri ng to the principles of ALARA. Comparison: Head CT 10/13/2015. Findings: There is a small retention cyst within the left maxillary sinus. The left mastoid air cells are clear. There are are a few partially opacified right inferior mastoid air cells. The calvarium a nd skull base are intact. There is no mass, hematoma, midline shift, acute infarct. White matter hypo density is nonspecific but suggestive of microvascular ischemic change. The ventricles and sulci demo nstrate mild age-related involutional changes. Impression: No acute intracranial abnormality. ACT 112: Negative or not required by law. Electronically signed by: Slim Ordoñez M.D. 11/24/2023 6:33 PM
--- NOTE | 2023-11-24 18:41 | CT Scan Report ---
CERVICAL SPINE CT CT DOSE: HISTORY: fall, trauma TECHNIQUE: Multiaxial CT images of the cervical spine were performed and reformatted in the sagittal and coronal plane without the use of contrast. A dose lowering technique was utilized adhering to th e principles of ALARA. COMPARISON: None. FINDINGS: No fractures. No subluxation. Prevertebral soft tissues and the C1-C2 interval are intact. No pneumothorax. IMPRESSION: No fractures within the cervical spine. ACT 112: Negative or not required by law. Electronically signed by: Slim Ordoñez M.D. 11/24/2023 6:38 PM
[2023-11-24 18:42] LABS: Influenza A virus by PCR Negative (Neg); Influenza B virus by PCR Negative (Neg); RSV by PCR Negative (Neg); SARS CoV2 RNA(COVID-19) Ceph NEGATIVE (Negative)
[2023-11-24] MEDS: CEFEPIME 2,000 MG/20 ML VIAL IV STA (18:42)
--- NOTE | 2023-11-24 18:53 | CT Scan Report ---
CT chest diagnostic wo con, CT abd pelvis wo con CT DOSE: 2275.95 mGy.cm HISTORY: trauma. (PO) TECHNIQUE: Multiaxial CT images of the chest, abdomen, and pelvis were performed without contrast. A dose lowering technique was utilized adhering to the principles of ALARA. COMPARISON: None. FINDINGS: Chest CT: The central airways are patent. No pneumothorax. No pleural effusions. There is a punctate calcified granuloma within the left upper lobe. There is a 4 mm subpleural nodule within the base of the left lower lobe on image 265. There are few additional scattered micronodules within the peripher y of the upper lobes measure between 1 and 2 mm in size. These are likely benign. No focal lung conso lidations to suggest a pneumonia. No evidence for pulmonary edema. No acute fractures within the ches t. The heart is normal in size. No pericardial effusion. Mild calcified plaque within the normal emeli mary thoracic aorta. No mediastinal or hilar lymphadenopathy. Normal caliber esophagus. Abdomen/pelvis CT: No pneumoperitoneum. No pneumatosis. No acute fractures. Streak artifact from the patient's overlapping left arm results in suboptimal evaluation of the abdomen and pelvis. The unenha nced liver, gallbladder, pancreas, spleen, and right kidney are unremarkable. There is bilateral adre nal gland thickening. This is likely age-related. There is a 2.4 cm exophytic hypodense lesion within the left kidney. This favors a cyst. No hydronephrosis. Calcified plaque within the normal caliber a bdominal aorta. No retroperitoneal hematoma or lymphadenopathy. No pelvic fluid. The bladder is unrem arkable. Suboptimal evaluation for bowel pathology due to the lack of intravenous and oral contrast. However, there is no definite bowel wall thickening or obstruction. [id number] fecal retention. IMPRESSION: 1. No acute traumatic process within the chest, abdomen, or pelvis. 2. A 4 mm indeterminate subpleural nodule within the left lower lobe. Please refer to the chart below for recommended follow-up. 3. Additional findings as described above. Please refer to below summary of Fleischner criteria recommendations for follow-up of incidental CT n odules (Ananda Daugherty, Guidelines for management of small pulmonary nodules detected on CT scans: A sta tement from the Fleischner Society, Radiology 237: [phone].) SOLID NODULES Solitary nodule size: <6 mm * Low risk patients: no follow-up needed * high risk patients: optional CT at 12 months Solitary nodule size: 6-8 mm * Low risk patients: follow-up at 6-12 months, then consider further follow-up at 18-24 months * high risk patients: initial follow-up CT at 6-12 months and then at 18-24 months if no change Solitary nodule size: >8 mm * either low or high risk patients - consider follow-up CT at 3 months, and/or CT-PET, and/or biopsy Multiple nodules size: <6 mm * Low risk patients: no routine follow-up * high risk patients: optional CT at 12 months Multiple nodules size: 6-8 mm * Low risk patients: follow-up at 3-6 months, then consider further follow-up at 18-24 months * high risk patients: follow-up at 3-6 months, then at 18-24 months if no change Multiple nodules size: >8 mm * Low risk patients: follow-up at 3-6 months, then consider further follow-up at 18-24 months * high risk patients: follow-up at 3-6 months, then at 18-24 months if no change Note: newly detected indeterminate nodule in persons 35 years of age or older. * Low risk patients: minimal or absent history of smoking and/or other known risk factors * high risk patients: history of smoking or of other known risk factors (e.g. first degree relative with lung cancer, or exposure to asbestos, radon, uranium) * if a nodule up to 8 mm is partly solid or is ground glass further follow-up is required after 24 m onths to exclude possible slow growing adenocarcinoma (LEXUS) SUBSOLID NODULES Solitary pure ground-glass nodule * nodule size <6 mm - no CT follow-up required * nodule size >=6 mm - follow-up CT at 6-12 months, then every 2 years until 5 years Solitary part-solid nodule * nodule size <6 mm - no CT follow-up required * nodule size >=6 mm - follow-up CT at 3-6 months. If unchanged, and solid component remains <6 mm, then annual follow-up for 5 years Multiple subsolid nodules * nodule size <6 mm - follow-up CT at 3-6 months, consider further follow-up at 2 and 4 years if sta ble * nodule size >=6 mm - follow-up CT at 3-6 months, subsequent management based on the most suspiciou s nodule(s) ACT 112: Negative or not required by law. Electronically signed by: Slim Ordoñez M.D. 11/24/2023 6:50 PM
[2023-11-24] MEDS: VANCOMYCIN HCL 1,250 MG in SODIUM CHLORIDE 0.9% 500 ML IV ONE (19:05)
[2023-11-24 19:38] LABS: Appearance Urine Clear (Clear); Bacteria Urine Automated None Seen (None Seen); Bilirubin Urine Negative (Negative); Blood Urine 3+ (Negative); Color Urine Yellow; Glucose Urine UA Negative (Negative); Granular Casts Urine Present /lpf (None Prsent); Hyaline Casts Urine Present /lpf (None Presnt); Ketones Urine 2+ (Negative); Leukocyte Esterase Urine Trace (Negative); Nitrite Urine Negative (Negative); Protein Urine 2+ (Negative); RBC Urine Automated 0-2 /hpf (0-2); Specific Gravity Urine 1.025 (1.000-1.030); Urobilinogen Urine Negative (Negative); WBC Urine Automated 0-5 /hpf (0-5)
--- NOTE | 2023-11-24 22:22 | History & Physical Report ---
Date of Service November 24, 2023 Assessment & Plan (1) Rhabdomyolysis: Plan: 78-year-old male with past medical history significant for parkinsonism, hypothyroidism, CKD stage III, prostate cancer was brought in because of fall and also found to rhabdomyolysis and PO. Patient seems to be in the hospital. Currently living alone. Patient states he ambulates with cane and walker. He cooks his own food. He is vegetarian and likes to cook soft food. And swallows okay. Patient is having a lot of tremors and shakiness. Pressure injury seen on right posterior shoulder. And also there is erythema and swelling with the skin tears seen in the right buttocks region. Right upper extremity swollen. As per ER patient fell several times yesterday and apparently hit his head. Seems neighbors brought him back to his house yesterday. And today's afternoon patient noted to be slumped over a barstool in his house. His right arm was hanging over the back of the chair and was leaning to the right. Some blood is noted in his mouth region and was brought to the hospital. Patient denies any vomiting of blood. Denies any headache. States vision is okay. Denies any headache. Denies runny nose or sore throat or cough. Denies any chest pain or shortness of breath. Denies nausea , denies abdominal pain. He thinks he is moving his bowels and bladder okay. Currently afebrile. Somewhat tachycardic. Patient is shaky. Somewhat difficult to commu nicate with his shakiness but seems alert and oriented x 3 and answering simple questions appropriately.Labs showed WBC 21, creatinine 1.6, initial lactic 2.4 and repeat 1.2, total creatinine kinase 34206, troponin 76, procalcitonin 1.8 [place] 25158 Right upper extremity swollen and mildly erythematous Right buttock region swollen and erythematous and skin tear seen Will follow right upper extremity Doppler and CT scan-biceps/triceps myositis. ortho consult IV fluids Normal Saline 200 mill per hour Repeat CPK in a.m. CT chest and CT abdomen pelvis okay Pelvis x-ray okay CT head okay Cervical spine CT okay Nephrology consult PT OT when stable Leukocytosis Possible cellulitis of right upper extremity and right buttock region and wounds of right shoulder and buttock region Elevated procalcitonin Possible sepsis Initial lactic acid 2.4 repeat is 1.2 Empiric Vanco and Zosyn Will follow cultures Will follow hemodynamics Follow labs Close monitor PO on CKD stage III Presented with creatinine 1.68 Baseline creatinine around 1.1 Avoid nephrotoxic agents Getting fluids Follow repeat labs in a.m. Nephrology consulted Lower extremity edema Seems chronic Will follow echo results questionable GI bleed Some dried blood seen around the mouth region, patient denies vomiting any blood Hemoglobin 13.9 around baseline and am labs 13.8 Will follow stool for Hemoccult IV Protonix 40 mg twice daily for now If any concerns will consult GI Left Leg proximal non occlusive DVT Question of GI bleed but hb stable in 13's even after aggressive fluids starting on iv heparin close monitor for any bleeding Aspiration On the floor patient aspirated on lactulose and requiring oxygen made him NPO Speech evaluation Elevated troponin Troponin 76 Mostly demand ischemia and from rhabdo Will follow serial enzymes and echo Close monitor Parkinsonism Continue home meds when able to PT OT when stable Speech evaluation Hypothyroidism Continue home Synthyroid Follow TSH History of prostate cancer S/p surgery DVT prophylaxis SCDs Disposition Telemetry Full code History of Present Illness Chief Complaint: Fall and rhabdomyolysis Primary Care Provider: NO PCP 78-year-old male with past medical history significant for parkinsonism, hypothyroidism, CKD stage III, prostate cancer was brought in because of fall and also found to rhabdomyolysis and PO. Patient seems to be in the hospital. Currently living alone. Patient states he ambulates with cane and walker. He cooks his own food. He is vegetarian and likes to cook soft food. And swallows okay. Patient is having a lot of tremors and shakiness. Pressure injury seen on right posterior shoulder. And also there is erythema and swelling with the skin tears seen in the right buttocks region. Right upper extremity swollen. As per ER patient fell several times yesterday and apparently hit his head. Seems neighbors brought him back to his house yesterday. And today's afternoon patient noted to be slumped over a barstool in his house. His right arm was hanging over the back of the chair and was leaning to the right. Some blood is noted in his mouth region and was brought to the hospital. Patient denies any vomiting of blood. Denies any headache. States vision is okay. Denies any headache. Denies runny nose or sore throat or cough. Denies any chest pain or shortness of breath. Denies nausea , denies abdominal pain. He thinks he is moving his bowels and bladder okay. Currently afebrile. Somewhat tachycardic. Patient is shaky. Somewhat difficult to communicate with his shakiness but seems alert and oriented x 3 and answering simple questions appropriately. Past medical history. As mentioned above. Past surgical history. Radical prostate removal. Needlepoint biopsy of prostate. Social history. . No smoking. No alcohol use. Family history. Father had prostate cancer. Allergies Allergy/AdvReac Type Severity Reaction Status Date / Time gluten Allergy Intermediate GI SYMPTOMS Verified 11/24/23 17:44 milk Allergy Intermediate GI SYMPTOMS Verified 11/24/23 17:44 levofloxacin AdvReac Severe Patient Verified 11/24/23 17:44 states it makes him deathly sick. chicken derived AdvReac Intermediate GI SYMPTOMS Verified 11/24/23 17:44 Grain AdvReac Intermediate GI SYMPTOMS Verified 11/24/23 17:44 Home Medications Medication Instructions Recorded Confirmed Type carbidopa 25 mg-levodopa 100 mg 2 tab (2 x 25-100 mg) PO QID 90 11/08/23 11/24/23 Rx tablet (Sinemet) days #720 Tabs ergocalciferol (vitamin D2) 1,250 1,250 mcg PO MONTHLY 11/24/23 11/24/23 History mcg (50,000 unit) capsule levothyroxine 50 mcg tablet 50 mcg PO Q OTHER DAY 11/24/23 11/24/23 History levothyroxine 75 mcg tablet 75 mcg PO Q OTHER DAY 11/24/23 11/24/23 History Past Med/Surg History Problem List (Updated 11/24/23 @ 23:20 by Amos Dubois MD) Elevated troponin (Acute) Ground-level fall (Acute) Lactic acidosis (Acute) Severe sepsis (Acute) Rhabdomyolysis (Acute) Rhabdomyolysis BPH (benign prostatic hyperplasia) Chronic kidney disease, stage 3a Flank pain Cervicalgia Anemia Vitamin D deficiency B12 deficiency Peripheral neuropathy Hypercholesteremia Parkinsons disease H/o Lyme disease Tremor Insomnia (Acute) Anxiety Mixed action and resting tremor Essential tremor Vitamin D deficiency Chronic kidney disease, stage III (moderate) Diverticulosis of colon (without mention of hemorrhage) Febrile illness Hypothyroidism, unspecified Neutropenia Medical History Chronic kidney disease, stage 3a Flank pain Essential tremor Vitamin D deficiency Chronic kidney disease, stage III (moderate) Social History Smoking Status: Never smoker Second Hand Exposure: No; Do You Dip or Chew Tobacco: No; Tobacco Cessation Education Requested by Patient: No Hx Alcohol Use: No Hx Substance Use: No Preferred Language: Croatian Communication Ability: Effective Visual Impairment: No Limitations Hearing Ability: Normal Meteorology Professor Required: No Beliefs That Will Affect Care: None Current Living Situation: Spouse current occupational status: retired Other Information That Helps Us Care for You: No Feels Safe at Home: Yes Safety Concerns: Feels Safe At This Time Diet: regular Seatbelt Use: always Do you think of yourself as: straight/heterosexual Gender Identity: Male Assistive Devices: Walker Review of Systems Review of Systems: All systems reviewed & are unremarkable except as noted in HPI & below Physical Exam Physical Exam: General- Tremors. Not in acute distress Head- atraumatic Eyes- PERRL. ENT- oropharynx dry, dry blood seen on lips and mouth Neck- supple, no JVD. Lungs- clear to auscultation no wheezing or crackles Heart- regular rhythm; tachycardia, no murmur, no gallop. Abdomen- normal bowel sounds, soft, nontender, no distension. Extremities- right upper extremity swollen, b/l lower extremity edema present. Neuro- alert, oriented x 3; PERRL, Tremors seen, no facial palsy; no dysarthria; moves extremities with difficulty. Skin- bruise and pressure ulcer seen on posterior aspect of right shoulder. erythema and swelling with skin tear of right buttock region Results & Data Results & Data Vital Signs (Past 12 Hours) Vital Signs Temp Pulse Pulse Resp BP BP Pulse Ox 11/24/23 21:00 118 H 18 167/80 H 96 11/24/23 20:00 81 18 173/92 H 96 11/24/23 19:24 63 20 151/91 H 100 11/24/23 17:56 83 11/24/23 17:50 84 18 150/91 H 98 11/24/23 17:44 85 18 160/94 H 99 11/24/23 17:13 36.5 C 93 H 20 151/111 H 98 11/24/23 17:13 36.5 C 93 H 20 98 11/24/23 17:13 36.5 C 93 H 20 151/111 H 98 O2 Del Method 11/24/23 21:00 Room Air 11/24/23 20:00 Room Air 11/24/23 19:24 11/24/23 17:56 11/24/23 17:50 Room Air 11/24/23 17:44 Room Air 11/24/23 17:13 Room Air 11/24/23 17:13 Room Air 11/24/23 17:13 Room Air Diagnostic Findings Laboratory Results WBC 21.10 K/ul (4.8-10.8) H 11/24/23 17:20 RBC 4.48 M/uL (4.70-6.10) L 11/24/23 17:20 Hgb 13.9 g/dl (14.0-18.0) L 11/24/23 17:20 POC Hgb 15.0 g/dl (14.0-18.0) 11/24/23 17:25 Hct 41.3 % (42.0-52.0) L 11/24/23 17:20 POC Hct 44 % (42-52) 11/24/23 17:25 MCV 92.2 fL (80.0-100.0) 11/24/23 17:20 MCH 31.0 pg (25.0-34.0) 11/24/23 17:20 MCHC 33.7 g/dL (32.0-36.0) 11/24/23 17:20 RDW Std Deviation 42.4 fL (36.4-46.3) 11/24/23 17:20 RDW Coeff of [place] 12.6 % (11.5-14.5) 11/24/23 17:20 Plt Count 253 K/uL (130-400) 11/24/23 17:20 MPV 10.0 fL (9.4-12.4) 11/24/23 17:20 Immature Gran % (Auto) 0.9 % 11/24/23 17:20 Neut % (Auto) 87.9 % 11/24/23 17:20 Lymph % (Auto) 3.1 % 11/24/23 17:20 [place] % (Auto) 8.0 % 11/24/23 17:20 Eos % (Auto) 0.0 % 11/24/23 17:20 Baso % (Auto) 0.1 % 11/24/23 17:20 Neut # (Auto) 18.55 K/uL (1.40-6.50) H 11/24/23 17:20 Lymph # (Auto) 0.66 K/uL (1.20-3.40) L 11/24/23 17:20 [place] # (Auto) 1.69 K/uL (0.11-0.59) H 11/24/23 17:20 Eos # (Auto) 0.00 K/uL (0.00-0.50) 11/24/23 17:20 Baso # (Auto) 0.02 K/uL (0.00-0.20) 11/24/23 17:20 Immature Gran # (Auto) 0.18 K/uL (0.01-0.20) 11/24/23 17:20 PT 10.7 Seconds (9.0-12.0) 11/24/23 17:20 INR 1.0 (0.9-1.1) 11/24/23 17:20 POC Sodium 142 mmol/L (135-144) 11/24/23 17:25 Sodium 143 mmol/L (136-145) 11/24/23 17:20 POC Potassium 4.1 mmol/L (3.3-5.0) 11/24/23 17:25 Potassium 4.2 mmol/L (3.5-5.1) 11/24/23 17:20 POC Chloride 105 mmol/L (101-112) 11/24/23 17:25 Chloride 104 mmol/L (98-107) 11/24/23 17:20 Carbon Dioxide 22 mmol/L (21-32) 11/24/23 17:20 POC Total CO2 20 mmol/L (24-31) L 11/24/23 17:25 Anion Gap 17 (3-11) H 11/24/23 17:20 POC Anion Gap 22.0 mmol/L (16-25) 11/24/23 17:25 POC BUN 44 mg/dl (7-18) H 11/24/23 17:25 BUN 50 mg/dl (6-23) H 11/24/23 17:20 Creatinine 1.68 mg/dl (0.6-1.4) H 11/24/23 17:20 POC Creatinine 1.8 mg/dl (0.6-1.3) H 11/24/23 17:25 Est Cr Clr Drug Dosing 34.1 ml/min 11/24/23 17:20 Est GFR ( Amer) 44.7 ml/min 11/24/23 17:20 Est GFR (Non-Af Amer) 38.6 ml/min 11/24/23 17:20 BUN/Creatinine Ratio 29.8 (10-20) H 11/24/23 17:20 Glucose 136 mg/dl (70-99(Fasting)) H 11/24/23 17:20 POC Glucose (other) 130 mg/dl (70-99) H 11/24/23 17:25 Lactate 1.2 mmol/L (0.4-2.0) 11/24/23 20:00 Calcium 9.8 mg/dl (8.6-10.3) 11/24/23 17:20 POC Ioniz Calcium Job 1.15 mmol/l (1.12-1.32) 11/24/23 17:25 Magnesium 2.5 mg/dl (1.7-2.4) H 11/24/23 17:20 Total Bilirubin 1.1 mg/dl (0.2-1.0) H 11/24/23 17:20 Direct Bilirubin 0.3 mg/dl (0-0.2) H 11/24/23 17:20 AST 314 U/L (13-39) H 11/24/23 17:20 ALT 80 U/L (7-52) H 11/24/23 17:20 Alkaline Phosphatase 78 U/L (34-104) 11/24/23 17:20 Total Creatine Kinase 51680 U/L (30-223) H 11/24/23 17:20 Troponin I High Sens 76.0 pg/ml (0-20) H* 11/24/23 19:07 Total Protein 7.0 gm/dl (6.0-8.3) 11/24/23 17:20 Albumin 4.2 gm/dl (3.4-5.0) 11/24/23 17:20 Procalcitonin 1.82 ng/ml (0-0.5) H 11/24/23 17:20 Urine Color Yellow 11/24/23 18:40 Urine Appearance Clear (Clear) 11/24/23 18:40 Urine pH 6.0 (4.5-7.5) 11/24/23 18:40 Ur Specific [place] 1.025 (1.000-1.030) 11/24/23 18:40 Urine Protein 2+ (Negative) H 11/24/23 18:40 Urine Glucose (UA) Negative (Negative) 11/24/23 18:40 Urine Ketones 2+ (Negative) H 11/24/23 18:40 Urine Blood 3+ (Negative) H 11/24/23 18:40 Urine Nitrite Negative (Negative) 11/24/23 18:40 Urine Bilirubin Negative (Negative) 11/24/23 18:40 Urine Urobilinogen Negative (Negative) 11/24/23 18:40 Ur Leukocyte Esterase Trace (Negative) H 11/24/23 18:40 Urine WBC (Auto) 0-5 /hpf (0-5) 11/24/23 18:40 Urine RBC (Auto) 0-2 /hpf (0-2) 11/24/23 18:40 U Hyaline Cast (Auto) 6-10 /lpf (0-2) H 11/24/23 18:40 U Epithel Cells (Auto) 3-5 /hpf (0-2) H 11/24/23 18:40 Urine Bacteria (Auto) None Seen (None Seen) 11/24/23 18:40 Hyaline Casts Present /lpf (None Presnt) A 11/24/23 18:40 Granular Casts Present /lpf (None Prsent) A 11/24/23 18:40 SARS-CoV-2 (PCR) NEGATIVE (Negative) 11/24/23 17:56 Influenza Type A (PCR) Negative (Neg) 11/24/23 17:56 Influenza Type B (PCR) Negative (Neg) 11/24/23 17:56 RSV (RT-PCR) Negative (Neg) 11/24/23 17:[address] 11/24/23 17:[address] DOSE: HISTORY: fall, trauma TECHNIQUE: Multiaxial CT images of the cervical spine were performed and reformatted in the sagittal and coronal plane without the use of contrast. A dose lowering technique was utilized adhering to the principles of ALARA. COMPARISON: None. FINDINGS: No fractures. No subluxation. Prevertebral soft tissues and the C1-C2 interval are intact. No pneumothorax. IMPRESSION: No fractures within the cervical spine. ACT 112: Negative or not required by law. Electronically signed by: Slim Ordoñez M.D. 11/24/2023 6:[address] 11/24/23 17:[address] DOSE: HISTORY: trauma to head 24 hrs ago TECHNIQUE: Multiaxial CT images of the head were performed without the use of intravenous contrast. Automated exposure control was utilized for this study. A dose lowering technique was utilized adhering to the principles of ALARA. Comparison: Head CT 10/13/2015. Findings: There is a small retention cyst within the left maxillary sinus. The left mastoid air cells are clear. There are are a few partially opacified right inferior mastoid air cells. The calvarium and skull base are intact. There is no mass, hematoma, midline shift, acute infarct. White matter hypodensity is nonspecific but suggestive of microvascular ischemic change. The ventricles and sulci demonstrate mild age-related involutional changes. Impression: No acute intracranial abnormality. ACT 112: Negative or not required by law. Electronically signed by: Slim Ordoñez M.D. 11/24/2023 6:33 PM Chest X-Ray 11/24/23 17:12 XR chest 1V portable HISTORY: fall, weakness COMPARISON: Chest 10/13/2015. FINDINGS: The lungs are clear. Cardiac silhouette is normal in size. No pleural effusions. No pneumothorax. IMPRESSION: No acute process. ACT 112: Negative or not required by law. Electronically signed by: Slim Ordoñez M.D. 11/24/2023 6:26 PM Pelvis X-Ray 11/24/23 17:21 XR pelvis 1-2V routine CLINICAL HISTORY: trauma COMPARISON STUDY: None. FINDINGS: No fracture or dislocation within the pelvis or hips. The sacrum is intact. Mild degenerative changes within the bilateral hips. Surgical clips seen within the right deep pelvis. Soft tissues are unremarkable. IMPRESSION: No fracture or dislocation within the pelvis or hips. ACT 112: Negative or not required by law. Electronically signed by: Slim Ordoñez M.D. 11/24/2023 6:29 PM Abdomen/Pelvis CT 11/24/23 17:28 CT chest diagnostic wo con, CT abd pelvis wo con CT DOSE: 2275.95 mGy.cm HISTORY: trauma. (PO) TECHNIQUE: Multiaxial CT images of the chest, abdomen, and pelvis were performed without contrast. A dose lowering technique was utilized adhering to the principles of ALARA. COMPARISON: None. FINDINGS: Chest CT: The central airways are patent. No pneumothorax. No pleural effusions. There is a punctate calcified granuloma within the left upper lobe. There is a 4 mm subpleural nodule within the base of the left lower lobe on image 265. There are few additional scattered micronodules within the periphery of the upper l obes measure between 1 and 2 mm in size. These are likely benign. No focal lung consolidations to suggest a pneumonia. No evidence for pulmonary edema. No acute fractures within the chest. The heart is normal in size. No pericardial effusion. Mild calcified plaque within the normal caliber thoracic aorta. No mediastinal or hilar lymphadenopathy. Normal caliber esophagus. Abdomen/pelvis CT: No pneumoperitoneum. No pneumatosis. No acute fractures. Streak artifact from the patient's overlapping left arm results in suboptimal evaluation of the abdomen and pelvis. The unenhanced liver, gallbladder, pancreas, spleen, and right kidney are unremarkable. There is bilateral adrenal gland thickening. This is likely age-related. There is a 2.4 cm exophytic hypodense lesion within the left kidney. This favors a cyst. No hydronephrosis. Calcified plaque within the normal caliber abdominal aorta. No retroperitoneal hematoma or lymphadenopathy. No pelvic fluid. The bladder is unremarkable. Suboptimal evaluation for bowel pathology due to the lack of intravenous and oral contrast. However, there is no definite bowel wall thickening or obstruction. [id number] fecal retention. IMPRESSION: 1. No acute traumatic process within the chest, abdomen, or pelvis. 2. A 4 mm indeterminate subpleural nodule within the left lower lobe. Please refer to the chart below for recommended follow-up. 3. Additional findings as described above. Please refer to below summary of Fleischner criteria recommendations for follow- up of incidental CT nodules (Ananda Daugherty, Guidelines for management of small pulmonary nodules detected on CT scans: A statement from the Fleischner Society, Radiology 237: [phone].) SOLID NODULES Solitary nodule size: <6 mm * Low risk patients: no follow-up needed * high risk patients: optional CT at 12 months Solitary nodule size: 6-8 mm * Low risk patients: follow-up at 6-12 months, then consider further follow-up at 18-24 months * high risk patients: initial follow-up CT at 6-12 months and then at 18-24 months if no change Solitary nodule size: >8 mm * either low or high risk patients - consider follow-up CT at 3 months, and/or CT-PET, and/or biopsy Multiple nodules size: <6 mm * Low risk patients: no routine follow-up * high risk patients: optional CT at 12 months Multiple nodules size: 6-8 mm * Low risk patients: follow-up at 3-6 months, then consider further follow-up at 18-24 months * high risk patients: follow-up at 3-6 months, then at 18-24 months if no change Multiple nodules size: >8 mm * Low risk patients: follow-up at 3-6 months, then consider further follow-up at 18-24 months * high risk patients: follow-up at 3-6 months, then at 18-24 months if no change Note: newly detected indeterminate nodule in persons 35 years of age or older. * Low risk patients: minimal or absent history of smoking and/or other known risk factors * high risk patients: history of smoking or of other known risk factors (e.g. first degree relative with lung cancer, or exposure to asbestos, radon, uranium) * if a nodule up to 8 mm is partly solid or is ground glass further follow-up is required after 24 months to exclude possible slow growing adenocarcinoma (LEXUS) SUBSOLID NODULES Solitary pure ground-glass nodule * nodule size <6 mm - no CT follow-up required * nodule size >=6 mm - follow-up CT at 6-12 months, then every 2 years until 5 years Solitary part-solid nodule * nodule size <6 mm - no CT follow-up required * nodule size >=6 mm - follow-up CT at 3-6 months. If unchanged, and solid component remains <6 mm, then annual follow-up for 5 years Multiple subsolid nodules * nodule size <6 mm - follow-up CT at 3-6 months, consider further follow-up at 2 and 4 years if stable * nodule size >=6 mm - follow-up CT at 3-6 months, subsequent management based on the most suspicious nodule(s) ACT 112: Negative or not required by law. Electronically signed by: Slim Ordoñez M.D. 11/24/2023 6:[address] 11/24/23 17:28 CT chest diagnostic wo con, CT abd pelvis wo con CT DOSE: 2275.95 mGy.cm HISTORY: trauma. (PO) TECHNIQUE: Multiaxial CT images of the chest, abdomen, and pelvis were performed without contrast. A dose lowering technique was utilized adhering to the principles of ALARA. COMPARISON: None. FINDINGS: Chest CT: The central airways are patent. No pneumothorax. No pleural effusions. There is a punctate calcified granuloma within the left upper lobe. There is a 4 mm subpleural nodule within the base of the left lower lobe on image 265. There are few additional scattered micronodules within the periphery of the upper lobes measure between 1 and 2 mm in size. These are likely benign. No focal lung consolidations to suggest a pneumonia. No evidence for pulmonary edema. No acute fractures within the chest. The heart is normal in size. No pericardial effusion. Mild calcified plaque within the normal caliber thoracic aorta. No mediastinal or hilar lymphadenopathy. Normal caliber esophagus. Abdomen/pelvis CT: No pneumoperitoneum. No pneumatosis. No acute fractures. Streak artifact from the patient's overlapping left arm results in suboptimal evaluation of the abdomen and pelvis. The unenhanced liver, gallbladder, pancreas, spleen, and right kidney are unremarkable. There is bilateral adrenal gland thickening. This is likely age-related. There is a 2.4 cm exophytic hypodense lesion within the left kidney. This favors a cyst. No hydronephrosis. Calcified plaque within the normal caliber abdominal aorta. No retroperitoneal hematoma or lymphadenopathy. No pelvic fluid. The bladder is unremarkable. Suboptimal evaluation for bowel pathology due to the lack of intravenous and oral contrast. However, there is no definite bowel wall thickening or obstruction. Kkiw-sw-juqgdnyd fecal retention. IMPRESSION: 1. No acute traumatic process within the chest, abdomen, or pelvis. 2. A 4 mm indeterminate subpleural nodule within the left lower lobe. Please refer to the chart below for recommended follow-up. 3. Additional findings as described above. Please refer to below summary of Fleischner criteria recommendations for follow- up of incidental CT nodules (Ananda Daugherty, Guidelines for management of small pulmonary nodules detected on CT scans: A statement from the [employer], Radiology 237: [phone].) SOLID NODULES Solitary nodule size: <6 mm * Low risk patients: no follow-up needed * high risk patients: optional CT at 12 months Solitary nodule size: 6-8 mm * Low risk patients: follow-up at 6-12 months, then consider further follow-up at 18-24 months * high risk patients: initial follow-up CT at 6-12 months and then at 18-24 months if no change Solitary nodule size: >8 mm * either low or high risk patients - consider follow-up CT at 3 months, and/or CT-PET, and/or biopsy Multiple nodules size: <6 mm * Low risk patients: no routine follow-up * high risk patients: optional CT at 12 months Multiple nodules size: 6-8 mm * Low risk patients: follow-up at 3-6 months, then consider further follow-up at 18-24 months * high risk patients: follow-up at 3-6 months, then at 18-24 months if no change Multiple nodules size: >8 mm * Low risk patients: follow-up at 3-6 months, then consider further follow-up at 18-24 months * high risk patients: follow-up at 3-6 months, then at 18-24 months if no change Note: newly detected indeterminate nodule in persons 35 years of age or older. * Low risk patients: minimal or absent history of smoking and/or other known risk factors * high risk patients: history of smoking or of other known risk factors (e.g. first degree relative with lung cancer, or exposure to asbestos, radon, uranium) * if a nodule up to 8 mm is partly solid or is ground glass further follow-up is required after 24 months to exclude possible slow growing adenocarcinoma (LEXUS) SUBSOLID NODULES Solitary pure ground-glass nodule * nodule size <6 mm - no CT follow-up required * nodule size >=6 mm - follow-up CT at 6-12 months, then every 2 years until 5 years Solitary part-solid nodule * nodule size <6 mm - no CT follow-up required * nodule size >=6 mm - follow-up CT at 3-6 months. If unchanged, and solid component remains <6 mm, then annual follow-up for 5 years Multiple subsolid nodules * nodule size <6 mm - follow-up CT at 3-6 months, consider further follow-up at 2 and 4 years if stable * nodule size >=6 mm - follow-up CT at 3-6 months, subsequent management based on the most suspicious nodule(s) ACT 112: Negative or not required by law. Electronically signed by: Slim Ordoñez M.D. 11/24/2023 6:50 PM ECG Additional Comments: ECG poor quality undetermined rhythm rate of 161 ST anterior abnormality inferior leads Code Status & VTE Plan VTE Prophylaxis Plan VTE Prophylaxis will be ordered: Yes
[2023-11-24] MEDS ORDERED: ERGOCALCIFEROL 1250 MCG (50,000 UNITS) CAP PO SCH (23:59)
[2023-11-24] MEDS ORDERED: NITROGLYCERIN SL 0.4 MG/TAB TAB SL PRN (23:59)
[2023-11-25] MEDS: PANTOprazole 40 MG in SYRINGE 0 ML IV ONE (00:14)
[2023-11-25] MEDS: CARBIDOPA/LEVODOPA 25/100MG TAB PO SCH (00:44)
[2023-11-25] MEDS: SODIUM CHLORIDE 0.9% 500 ML IV SCH (01:05)
[2023-11-25] MEDS: PIPER/TAZO 4.5g in D5W MINI-B 100 ML IV STA (01:56)
[2023-11-25] MEDS: OPTIRAY 320 100ml IV ONE (01:58)
--- NOTE | 2023-11-25 03:21 | Ultrasound Report ---
Exam(s): US VENOUS RIGHT UPPER EXTREMITY EXAM: US Duplex Right Upper Extremity Veins CLINICAL HISTORY: Reason for exam: right upper extremity edema. dvt?. TECHNIQUE: Real-time duplex ultrasound scan of the right upper extremity veins integrating B-mode two-dimensional vascular structure, Doppler spectral analysis, color flow Doppler imaging and compression. COMPARISON: No relevant prior studies available. FINDINGS: Deep veins: Unremarkable. No DVT in the internal jugular, subclavian, axillary, radial, ulnar, or brachial veins. The veins demonstrate normal color flow, are normally compressible, with normal phasic flow and/or augmentation response. Superficial veins: Cephalic vein not visualized. No thrombus in the visualized basilic vein. Soft tissues: Edema. IMPRESSION: No evidence of acute DVT. Cephalic vein not visualized. Electronically signed by: Marc Ovalle M.D. 11/25/23 03:20 AM
--- NOTE | 2023-11-25 03:22 | CT Scan Report ---
Exam(s): CT EXTREMITY RIGHT UPPER With Contrast IV Amt: 93 ML OPTIRAY 320 EXAM: CT Right Upper Extremity With Intravenous Contrast CLINICAL HISTORY: Reason for exam: injury, swollen right upper ext. TECHNIQUE: Axial computed tomography images of the right upper extremity with intravenous contrast. CTDI is 20 mGy and DLP is 1065 mGy-cm. Automated exposure control was utilized for the study. A dose lowering technique was utilized adhering to the principles of ALARA. CONTRAST: Patient received 93 ML OPTIRAY 320 of IV contrast COMPARISON: No relevant prior studies available. FINDINGS: There is no evidence of acute fracture or dislocation. There is marked circumferential subcutaneous edema of the imaged right forearm. Generalized body wall edema is also observed. IMPRESSION: Subcutaneous edema of the right arm. This could reflect cellulitis or generalized anasarca. There is also body wall edema suggesting anasarca. Electronically signed by: Marc Ovalle M.D. 11/25/23 03:20 AM
--- NOTE | 2023-11-25 03:25 | CT Scan Report ---
Exam(s): CT EXTREMITY RIGHT UPPER With Contrast IV Amt: 93 ML OPTIRAY 320 EXAM: CT Right Upper Extremity With Intravenous Contrast CLINICAL HISTORY: Reason for exam: injury, swollen right upper ext. TECHNIQUE: Axial computed tomography images of the right upper extremity with intravenous contrast. Automated exposure control was utilized for the study. A dose lowering technique was utilized adhering to the principles of ALARA. CONTRAST: Patient received 93 ML OPTIRAY 320 of IV contrast COMPARISON: No relevant prior studies available. FINDINGS: Bones/joints: Unremarkable. No acute fracture or dislocation. Soft tissues: Diffuse subcutaneous edema. Edema and swelling of the biceps and triceps muscles. Lungs: Partially imaged right lower lobe airspace opacities concerning for pneumonia. IMPRESSION: 1. Diffuse subcutaneous edema, bland edema or cellulitis. 2. Edema and swelling of the biceps and triceps muscles, potentially myositis. 3. Right lower lobe pneumonia. Electronically signed by: Marc Ovalle M.D. 11/25/23 03:24 AM
--- NOTE | 2023-11-25 03:29 | CT Scan Report ---
Exam(s): CT RIGHT SHOULDER Without Contrast EXAM: CT Right Upper Extremity Without Intravenous Contrast, Shoulder CLINICAL HISTORY: Reason for exam: injury right scsapula?. TECHNIQUE: Axial computed tomography images of the right shoulder without intravenous contrast. CTDI is 20 mGy and DLP is 351 mGy-cm. Automated exposure control was utilized for the study. A dose lowering technique was utilized adhering to the principles of ALARA. COMPARISON: No relevant prior studies available. FINDINGS: Bones/joints: Unremarkable. No acute fracture or dislocation. Soft tissues: Diffuse subcutaneous edema. Edematous, swollen biceps and triceps muscles. IMPRESSION: 1. Diffuse subcutaneous edema. This may represent bland edema or cellulitis. 2. Edematous, swollen biceps and triceps muscles. Finding may represent myositis. 3. No fracture. Scapula appears intact. Electronically signed by: Marc Ovalle M.D. 11/25/23 03:28 AM
[2023-11-25] MEDS: SODIUM CHLORIDE 0.9% 1,000 ML IV SCH (03:48)
--- NOTE | 2023-11-25 03:59 | Ultrasound Report ---
Exam(s): US VENOUS BILATERAL LOWER EXTREMITIES EXAM: US Duplex Bilateral Lower Extremities Veins CLINICAL HISTORY: Reason for exam: b/l lower ext edema. dvt?. TECHNIQUE: Real-time duplex ultrasound scan of the bilateral lower extremity veins integrating B-mode two-dimensional vascular structure, Doppler spectral analysis, color flow Doppler imaging and compression. COMPARISON: No relevant prior studies available. FINDINGS: Right deep veins: Unremarkable. No DVT in the right common femoral, femoral, proximal deep femoral or popliteal veins. The veins demonstrate normal color flow, are normally compressible, with normal phasic flow and/or augmentation response. Right superficial veins: Unremarkable. No thrombus in the visualized right great saphenous vein. Left deep veins: Nonocclusive acute DVT in the distal femoral vein. No DVT in the left common femoral, proximal or mid femoral vein, proximal deep femoral vein, or popliteal vein. Left superficial veins: Unremarkable. No thrombus in the visualized left great saphenous vein. Soft tissues: No acute findings. IMPRESSION: 1. Acute nonocclusive DVT in the distal left femoral vein. 2. No right lower extremity DVT. Communications: Verify Receipt with Nurse Electronically signed by: Marc Ovalle M.D. 11/25/23 03:58 AM
[2023-11-25] MEDS: LACTULOSE SYRUP 20 GM/30 ML UDC PO STA (04:42)
[2023-11-25] MEDS: LEVALBUTEROL 1.25 MG/3 ML NEB NEB STA (05:06)
[2023-11-25] MEDS: LEVOTHYROXINE SODIUM 75 MCG TABLET PO SCH (05:07)
[2023-11-25 05:51] LABS: BUN Creatinine Ratio 35.4 (10-20); Calcium 8.4 mg/dl (8.6-10.3); Est GFR (Non-African American) 52.6 ml/min; Potassium 3.6 mmol/L (3.5-5.1)
[2023-11-25 06:01] LABS: Troponin I High Sensitivity 94.5 pg/ml (0-20)
[2023-11-25 06:06] LABS: Thyroid Stimulating Hormone 1.171 uIu/ml (0.300-4.500)
[2023-11-25 06:10] LABS: Hematocrit (blood only) 41.6 % (42.0-52.0); Hemoglobin 13.8 g/dl (14.0-18.0); Mean Corpuscular Hemoglobin 30.3 pg (25.0-34.0); Mean Corpuscular Hgb Conc 33.2 g/dL (32.0-36.0); Mean Corpuscular Volume 91.4 fL (80.0-100.0); Mean Platelet Volume 9.7 fL (9.4-12.4); Partial Thromboplastin Ratio 1.1; Partial Thromboplastin Time 30 Seconds (21-31); Platelet Count 204 K/uL (130-400); Prothrombin Time 10.9 Seconds (9.0-12.0); RDW Coefficient of Variation 12.7 % (11.5-14.5); RDW Standard Deviation 41.9 fL (36.4-46.3); Red Blood Count 4.55 M/uL (4.70-6.10); White Blood Count 7.34 K/ul (4.8-10.8)
[2023-11-25 06:11] LABS: Basophils # (auto) 0.01 K/uL (0.00-0.20); Basophils % (auto) 0.1 %; Immature Granulocytes # (auto) 0.01 K/uL (0.01-0.20); Immature Granulocytes % (auto) 0.1 %; Lymphocytes # (auto) 0.45 K/uL (1.20-3.40); Lymphocytes % (auto) 6.1 %; Monocytes # (auto) 0.56 K/uL (0.11-0.59); Monocytes % (auto) 7.5 %; Neutrophils # (auto) 6.39 K/uL (1.40-6.50); Neutrophils % (auto) 86.2 %
[2023-11-25] MEDS: HEPARIN SODIUM/DEXTROSE 25,000 UNITS/500 ML BAG IV SCH (06:40)
[2023-11-25] MEDS: Heparin IV Adult Wt-Based Standard *NO* INITIAL Bolus Protocol IV STA (06:46)
--- NOTE | 2023-11-25 07:58 | Pharmacy Report ---
Pharmacy PK ABX Note - Date of Service November 25, 2023 - Assessment and Plan Assessment 78 year old M receiving Zosyn/vancomycin for treatment of right shoulder and buttock wounds with possible cellulitis. Pertinent microbiologic data includes: blood cultures pending. Day # 1 of antimicrobial therapy. Plan Vancomycin * Loading dose: 1250 mg IV x 1 * Maintenance dose: 1000 mg IV every 24 hours * Regimen is predicted to achieve target AUC/YUSUF of 400-600 mg/L.hr * Random level ordered for: 11/27/23 with AM labs Pharmacy will continue to follow and will adjust dose/frequency as necessary. Thank you. Pharmacy has transitioned to AUC monitoring for vancomycin. AUC/YUSUF is the preferred PK/PD target and is associated with decreased risk of nephrotoxicity compared to traditional trough targets.
--- NOTE | 2023-11-25 08:05 | XRay Report ---
XR chest 1V portable HISTORY: aspiration COMPARISON: Chest CT 11/24/2023. FINDINGS: No pneumothorax. No pleural effusions. The heart is normal in size. No acute fractures. Adam cified granuloma within the left lung apex. Patchy bibasilar airspace opacities most pronounced on th e right. This is new from the prior study and likely represents a pneumonia. This could be secondary to aspiration. IMPRESSION: Patchy bibasilar airspace opacities most pronounced on the right. This is new from the prior study an d likely represents a pneumonia. This could be secondary to aspiration. ACT 112: Negative or not required by law. Electronically signed by: Slim Ordoñez M.D. 11/25/2023 8:04 AM
[2023-11-25] MEDS: PANTOprazole 40 MG in SYRINGE 0 ML IV SCH (09:39)
[2023-11-25] MEDS: PIPERACILLIN/TAZOBACTAM 4.5 GM in DEXTROSE 5% MINI-B 100 ML IV SCH (09:39)
[2023-11-25] MEDS: VANCOMYCIN HCL 1,000 MG in SODIUM CHLORIDE 0.9% 250 ML IV SCH (12:37)
[2023-11-25 12:57] LABS: ANTI-Xa, UFH(UnfractionatedHep 0.34 IU/ml (0.3-0.7)
--- NOTE | 2023-11-25 13:09 | Orthopedic Consultation ---
Date of Consultation November 25, 2023 Assessment & Plan (1) Myositis: RUE/shoulder pain secondarily to contusion versus Rotator cuff strain/tear Would start with conservative treatment continue pain control RICE PT/OT Encouraged to work on ROM (2) Rupture of distal biceps tendon: Weightbearing as tolerated on right upper extremity, would avoid heavy lifting. PT/OT Ice with easy wrap Pain control with p.o. medication Will continue to follow him. May consider additional imaging; MRI versus diagnostic ultrasound Would start with conservative treatment, currently not a good surgical candidate. Will continue to follow while in hospital History of Present Illness Reason for Consultation: Right Biceps/Triceps Myositis Requesting Physician: Rosa Lemus MD Attending Physician: Dayday Clark MD History of Present Illness 78 yo male, s/p multiple falls, h/o Parkinson's, CRD was brought to ED 11/24/23 after being found slumped over a stool. Patient was admitted and found to have rhabdomyolysis. Orthopedics was consulted for right biceps/triceps myositis. Allergies Allergy/AdvReac Type Severity Reaction Status Date / Time gluten Allergy Intermediate GI SYMPTOMS Verified 11/24/23 17:44 levofloxacin AdvReac Severe Patient Verified 11/24/23 17:44 states it makes him deathly sick. Home Medications Medication Instructions Recorded Confirmed Type carbidopa 25 mg-levodopa 100 mg 2 tab (2 x 25-100 mg) PO QID 90 11/08/23 11/24/23 Rx tablet (Sinemet) days #720 Tabs ergocalciferol (vitamin D2) 1,250 1,250 mcg PO MONTHLY 11/24/23 11/24/23 History mcg (50,000 unit) capsule levothyroxine 50 mcg tablet 50 mcg PO Q OTHER DAY 11/24/23 11/24/23 History levothyroxine 75 mcg tablet 75 mcg PO Q OTHER DAY 11/24/23 11/24/23 History Patient History Social History Smoking Status: Never smoker Second Hand Exposure: No; Do You Dip or Chew Tobacco: No; Hx Alcohol Use: No Hx Substance Use: No Preferred Language: Greek Communication Ability: Effective Visual Impairment: No Limitations Hearing Ability: Normal Visiting Teacher Required: No Beliefs That Will Affect Care: None Current Living Situation: Spouse current occupational status: retired Feels Safe at Home: Yes Diet: regular Seatbelt Use: always Do you think of yourself as: straight/heterosexual Gender Identity: Male Assistive Devices: Walker Review of Systems Review of Systems: All systems reviewed & are unremarkable except as noted in HPI & below Physical Exam Physical Exam: Right upper extremity: Patient has visible edema over the antecubital fossa over the right upper extremity. There is edema circumferentially about the elbow. Patient has a positive hook test. Biceps muscle belly is soft. After gentle ROM, he was able to actively flex and extend at the elbow. ROM of the elbow 30- 120 degrees. He does have full range of motion of his wrist hand and fingers. He is neurovascularly intact. Forearm and hand is swollen; but soft. He has no tenderness over the triceps. He has limited ROM of the shoulder secondarily to posterior shoulder pain. Results & Data Vital Signs (Past 12 Hours) Vital Signs Temp Pulse Pulse Resp BP Pulse Ox O2 Del Method 11/25/23 11:48 37.3 C 97 H 18 120/73 93 Oxymask 11/25/23 11:41 96 H 11/25/23 10:42 Oxymask 11/25/23 07:11 37.4 C 93 H 18 123/70 94 Room Air 11/25/23 05:07 96 H 18 90 Nasal Cannula 11/25/23 03:19 36.6 C 87 18 130/67 90 Room Air O2 Flow Rate 11/25/23 11:48 11/25/23 11:41 11/25/23 10:42 5 11/25/23 07:11 11/25/23 05:07 3 11/25/23 03:19 Laboratory Results Laboratory Results WBC 7.34 K/ul (4.8-10.8) D 11/25/23 05:19 RBC 4.55 M/uL (4.70-6.10) L 11/25/23 05:19 Hgb 13.8 g/dl (14.0-18.0) L 11/25/23 05:19 POC Hgb 15.0 g/dl (14.0-18.0) 11/24/23 17:25 Hct 41.6 % (42.0-52.0) L 11/25/23 05:19 POC Hct 44 % (42-52) 11/24/23 17:25 MCV 91.4 fL (80.0-100.0) 11/25/23 05:19 MCH 30.3 pg (25.0-34.0) 11/25/23 05:19 MCHC 33.2 g/dL (32.0-36.0) 11/25/23 05:19 RDW Std Deviation 41.9 fL (36.4-46.3) 11/25/23 05:19 RDW Coeff of [place] 12.7 % (11.5-14.5) 11/25/23 05:19 Plt Count 204 K/uL (130-400) 11/25/23 05:19 MPV 9.7 fL (9.4-12.4) 11/25/23 05:19 Immature Gran % (Auto) 0.1 % 11/25/23 05:19 Neut % (Auto) 86.2 % 11/25/23 05:19 Lymph % (Auto) 6.1 % 11/25/23 05:19 [place] % (Auto) 7.5 % 11/25/23 05:19 Eos % (Auto) 0.0 % 11/25/23 05:19 Baso % (Auto) 0.1 % 11/25/23 05:19 Neut # (Auto) 6.39 K/uL (1.40-6.50) 11/25/23 05:19 Lymph # (Auto) 0.45 K/uL (1.20-3.40) L 11/25/23 05:19 [place] # (Auto) 0.56 K/uL (0.11-0.59) 11/25/23 05:19 Eos # (Auto) 0.00 K/uL (0.00-0.50) 11/25/23 05:19 Baso # (Auto) 0.01 K/uL (0.00-0.20) 11/25/23 05:19 Immature Gran # (Auto) 0.01 K/uL (0.01-0.20) 11/25/23 05:19 PT 10.9 Seconds (9.0-12.0) 11/25/23 05:19 INR 1.0 (0.9-1.1) 11/25/23 05:19 APTT 30 Seconds (21-31) 11/25/23 05:19 PTT Ratio 1.1 11/25/23 05:19 Heparin Anti-Xa, Unfract 0.34 IU/ml (0.3-0.7) 11/25/23 12:06 POC Sodium 142 mmol/L (135-144) 11/24/23 17:25 Sodium 142 mmol/L (136-145) 11/25/23 05:19 POC Potassium 4.1 mmol/L (3.3-5.0) 11/24/23 17:25 Potassium 3.6 mmol/L (3.5-5.1) 11/25/23 05:19 POC Chloride 105 mmol/L (101-112) 11/24/23 17:25 Chloride 110 mmol/L (98-107) H 11/25/23 05:19 Carbon Dioxide 22 mmol/L (21-32) 11/25/23 05:19 POC Total CO2 20 mmol/L (24-31) L 11/24/23 17:25 Anion Gap 10 (3-11) 11/25/23 05:19 POC Anion Gap 22.0 mmol/L (16-25) 11/24/23 17:25 POC BUN 44 mg/dl (7-18) H 11/24/23 17:25 BUN 46 mg/dl (6-23) H 11/25/23 05:19 Creatinine 1.30 mg/dl (0.6-1.4) D 11/25/23 05:19 POC Creatinine 1.8 mg/dl (0.6-1.3) H 11/24/23 17:25 Est Cr Clr Drug Dosing 44.0 ml/min 11/25/23 05:19 Est GFR ( Amer) 61.0 ml/min 11/25/23 05:19 Est GFR (Non-Af Amer) 52.6 ml/min 11/25/23 05:19 BUN/Creatinine Ratio 35.4 (10-20) H 11/25/23 05:19 Glucose 125 mg/dl (70-99(Fasting)) H 11/25/23 05:19 POC Glucose (other) 130 mg/dl (70-99) H 11/24/23 17:25 Lactate 1.2 mmol/L (0.4-2.0) 11/24/23 20:00 Calcium 8.4 mg/dl (8.6-10.3) L 11/25/23 05:19 POC Ioniz Calcium Job 1.15 mmol/l (1.12-1.32) 11/24/23 17:25 Magnesium 2.0 mg/dl (1.7-2.4) 11/25/23 05:19 Total Bilirubin 1.1 mg/dl (0.2-1.0) H 11/24/23 17:20 Direct Bilirubin 0.3 mg/dl (0-0.2) H 11/24/23 17:20 AST 314 U/L (13-39) H 11/24/23 17:20 ALT 80 U/L (7-52) H 11/24/23 17:20 Alkaline Phosphatase 78 U/L (34-104) 11/24/23 17:20 Total Creatine Kinase 8254 U/L (30-223) H 11/25/23 05:19 Troponin I High Sens 70.2 pg/ml (0-20) H* D 11/25/23 12:06 Total Protein 7.0 gm/dl (6.0-8.3) 11/24/23 17:20 Albumin 4.2 gm/dl (3.4-5.0) 11/24/23 17:20 Procalcitonin 1.82 ng/ml (0-0.5) H 11/24/23 17:20 TSH 1.171 uIu/ml (0.300-4.500) 11/25/23 05:19 Urine Color Yellow 11/24/23 18:40 Urine Appearance Clear (Clear) 11/24/23 18:40 Urine pH 6.0 (4.5-7.5) 11/24/23 18:40 Ur Specific Stone 1.025 (1.000-1.030) 11/24/23 18:40 Urine Protein 2+ (Negative) H 11/24/23 18:40 Urine Glucose (UA) Negative (Negative) 11/24/23 18:40 Urine Ketones 2+ (Negative) H 11/24/23 18:40 Urine Blood 3+ (Negative) H 11/24/23 18:40 Urine Nitrite Negative (Negative) 11/24/23 18:40 Urine Bilirubin Negative (Negative) 11/24/23 18:40 Urine Urobilinogen Negative (Negative) 11/24/23 18:40 Ur Leukocyte Esterase Trace (Negative) H 11/24/23 18:40 Urine WBC (Auto) 0-5 /hpf (0-5) 11/24/23 18:40 Urine RBC (Auto) 0-2 /hpf (0-2) 11/24/23 18:40 U Hyaline Cast (Auto) 6-10 /lpf (0-2) H 11/24/23 18:40 U Epithel Cells (Auto) 3-5 /hpf (0-2) H 11/24/23 18:40 Urine Bacteria (Auto) None Seen (None Seen) 11/24/23 18:40 Hyaline Casts Present /lpf (None Presnt) A 11/24/23 18:40 Granular Casts Present /lpf (None Prsent) A 11/24/23 18:40 SARS-CoV-2 (PCR) NEGATIVE (Negative) 11/24/23 17:56 Influenza Type A (PCR) Negative (Neg) 11/24/23 17:56 Influenza Type B (PCR) Negative (Neg) 11/24/23 17:56 RSV (RT-PCR) Negative (Neg) 11/24/23 17:[address] 11/24/23 17:[address] DOSE: HISTORY: fall, trauma TECHNIQUE: Multiaxial CT images of the cervical spine were performed and reformatted in the sagittal and coronal plane without the use of contrast. A dose lowering technique was utilized adhering to the principles of ALARA. COMPARISON: None. FINDINGS: No fractures. No subluxation. Prevertebral soft tissues and the C1-C2 interval are intact. No pneumothorax. IMPRESSION: No fractures within the cervical spine. ACT 112: Negative or not required by law. Electronically signed by: Slim Ordoñez M.D. 11/24/2023 6:[address] 11/24/23 17:[address] DOSE: HISTORY: trauma to head 24 hrs ago TECHNIQUE: Multiaxial CT images of the head were performed without the use of intravenous contrast. Automated exposure control was utilized for this study. A dose lowering technique was utilized adhering to the principles of ALARA. Comparison: Head CT 10/13/2015. Findings: There is a small retention cyst within the left maxillary sinus. The left mastoid air cells are clear. There are are a few partially opacified right inferior mastoid air cells. The calvarium and skull base are intact. There is no mass, hematoma, midline shift, acute infarct. White matter hypodensity is nonspecific but suggestive of microvascular ischemic change. The ventricles and sulci demonstrate mild age-related involutional changes. Impression: No acute intracranial abnormality. ACT 112: Negative or not required by law. Electronically signed by: Slim Ordoñez M.D. 11/24/2023 6:33 PM Pelvis X-Ray 11/24/23 17:21 XR pelvis 1-2V routine CLINICAL HISTORY: trauma COMPARISON STUDY: None. FINDINGS: No fracture or dislocation within the pelvis or hips. The sacrum is intact. Mild degenerative changes within the bilateral hips. Surgical clips seen within the right deep pelvis. Soft tissues are unremarkable. IMPRESSION: No fracture or dislocation within the pelvis or hips. ACT 112: Negative or not required by law. Electronically signed by: Slim Ordoñez M.D. 11/24/2023 6:29 PM Abdomen/Pelvis CT 11/24/23 17:28 CT chest diagnostic wo con, CT abd pelvis wo con CT DOSE: 2275.95 mGy.cm HISTORY: trauma. (PO) TECHNIQUE: Multiaxial CT images of the chest, abdomen, and pelvis were performed without contrast. A dose lowering technique was utilized adhering to the principles of ALARA. COMPARISON: None. FINDINGS: Chest CT: The central airways are patent. No pneumothorax. No pleural effusions. There is a punctate calcified granuloma within the left upper lobe. There is a 4 mm subpleural nodule within the base of the left lower lobe on image 265. There are few additional scattered micronodules within the periphery of the upper lobes measure between 1 and 2 mm in size. These are likely benign. No focal lung consolidations to suggest a pneumonia. No evidence for pulmonary edema. No acute fractures within the chest. The heart is normal in size. No pericardial effusion. Mild calcified plaque within the normal caliber thoracic aorta. No mediastinal or hilar lymphadenopathy. Normal caliber esophagus. Abdomen/pelvis CT: No pneumoperitoneum. No pneumatosis. No acute fractures. Streak artifact from the patient's overlapping left arm results in suboptimal evaluation of the abdomen and pelvis. The unenhanced liver, gallbladder, pancreas, spleen, and right kidney are unremarkable. There is bilateral adrenal gland thickening. This is likely age-related. There is a 2.4 cm exophytic hypodense lesion within the left kidney. This favors a cyst. No hydronephrosis. Calcified plaque within the normal caliber abdominal aorta. No retroperitoneal hematoma or lymphadenopathy. No pelvic fluid. The bladder is unremarkable. Suboptimal evaluation for bowel pathology due to the lack of intravenous and oral contrast. However, there is no definite bowel wall thickening or obstruction. [id number] fecal retention. IMPRESSION: 1. No acute traumatic process within the chest, abdomen, or pelvis. 2. A 4 mm indeterminate subpleural nodule within the left lower lobe. Please refer to the chart below for recommended follow-up. 3. Additional findings as described above. Please refer to below summary of Fleischner criteria recommendations for follow- up of incidental CT nodules (Ananda Daugherty, Guidelines for management of small pulmonary nodules detected on CT scans: A statement from the Fleischner Society, Radiology 237: [phone].) SOLID NODULES Solitary nodule size: <6 mm * Low risk patients: no follow-up needed * high risk patients: optional CT at 12 months Solitary nodule size: 6-8 mm * Low risk patients: follow-up at 6-12 months, then consider further follow-up at 18-24 months * high risk patients: initial follow-up CT at 6-12 months and then at 18-24 months if no change Solitary nodule size: >8 mm * either low or high risk patients - consider follow-up CT at 3 months, and/or CT-PET, and/or biopsy Multiple nodules size: <6 mm * Low risk patients: no routine follow-up * high risk patients: optional CT at 12 months Multiple nodules size: 6-8 mm * Low risk patients: follow-up at 3-6 months, then consider further follow-up at 18-24 months * high risk patients: follow-up at 3-6 months, then at 18-24 months if no change Multiple nodules size: >8 mm * Low risk patients: follow-up at 3-6 months, then consider further follow-up at 18-24 months * high risk patients: follow-up at 3-6 months, then at 18-24 months if no change Note: newly detected indeterminate nodule in persons 35 years of age or older. * Low risk patients: minimal or absent history of smoking and/or other known risk factors * high risk patients: history of smoking or of other known risk factors (e.g. first degree relative with lung cancer, or exposure to asbestos, radon, uranium) * if a nodule up to 8 mm is partly solid or is ground glass further follow-up is required after 24 months to exclude possible slow growing adenocarcinoma (LEXUS) SUBSOLID NODULES Solitary pure ground-glass nodule * nodule size <6 mm - no CT follow-up required * nodule size >=6 mm - follow-up CT at 6-12 months, then every 2 years until 5 years Solitary part-solid nodule * nodule size <6 mm - no CT follow-up required * nodule size >=6 mm - follow-up CT at 3-6 months. If unchanged, and solid component remains <6 mm, then annual follow-up for 5 years Multiple subsolid nodules * nodule size <6 mm - follow-up CT at 3-6 months, consider further follow-up at 2 and 4 years if stable * nodule size >=6 mm - follow-up CT at 3-6 months, subsequent management based on the most suspicious nodule(s) ACT 112: Negative or not required by law. Electronically signed by: Slim Ordoñez M.D. 11/24/2023 6:[address] 11/24/23 17:28 CT chest diagnostic wo con, CT abd pelvis wo con CT DOSE: 2275.95 mGy.cm HISTORY: trauma. (PO) TECHNIQUE: Multiaxial CT images of the chest, abdomen, and pelvis were performed without contrast. A dose lowering technique was utilized adhering to the principles of ALARA. COMPARISON: None. FINDINGS: Chest CT: The central airways are patent. No pneumothorax. No pleural effusions. There is a punctate calcified granuloma within the left upper lobe. There is a 4 mm subpleural nodule within the base of the left lower lobe on image 265. There are few additional scattered micronodules within the periphery of the upper lobes measure between 1 and 2 mm in size. These are likely benign. No focal lung consolidations to suggest a pneumonia. No evidence for pulmonary edema. No acute fractures within the chest. The heart is normal in size. No pericardial effusion. Mild calcified plaque within the normal caliber thoracic aorta. No mediastinal or hilar lymphadenopathy. Normal caliber esophagus. Abdomen/pelvis CT: No pneumoperitoneum. No pneumatosis. No acute fractures. Streak artifact from the patient's overlapping left arm results in suboptimal evaluation of the abdomen and pelvis. The unenhanced liver, gallbladder, pancreas, spleen, and right kidney are unremarkable. There is bilateral adrenal gland thickening. This is likely age-related. There is a 2.4 cm exophytic hypode nse lesion within the left kidney. This favors a cyst. No hydronephrosis. Calcified plaque within the normal caliber abdominal aorta. No retroperitoneal hematoma or lymphadenopathy. No pelvic fluid. The bladder is unremarkable. Suboptimal evaluation for bowel pathology due to the lack of intravenous and oral contrast. However, there is no definite bowel wall thickening or obstruction. [id number] fecal retention. IMPRESSION: 1. No acute traumatic process within the chest, abdomen, or pelvis. 2. A 4 mm indeterminate subpleural nodule within the left lower lobe. Please refer to the chart below for recommended follow-up. 3. Additional findings as described above. Please refer to below summary of Fleischner criteria recommendations for follow- up of incidental CT nodules (Ananda Daugherty, Guidelines for management of small pulmonary nodules detected on CT scans: A statement from the Fleischner Society, Radiology 237: [phone].) SOLID NODULES Solitary nodule size: <6 mm * Low risk patients: no follow-up needed * high risk patients: optional CT at 12 months Solitary nodule size: 6-8 mm * Low risk patients: follow-up at 6-12 months, then consider further follow-up at 18-24 months * high risk patients: initial follow-up CT at 6-12 months and then at 18-24 months if no change Solitary nodule size: >8 mm * either low or high risk patients - consider follow-up CT at 3 months, and/or CT-PET, and/or biopsy Multiple nodules size: <6 mm * Low risk patients: no routine follow-up * high risk patients: optional CT at 12 months Multiple nodules size: 6-8 mm * Low risk patients: follow-up at 3-6 months, then consider further follow-up at 18-24 months * high risk patients: follow-up at 3-6 months, then at 18-24 months if no change Multiple nodules size: >8 mm * Low risk patients: follow-up at 3-6 months, then consider further follow-up at 18-24 months * high risk patients: follow-up at 3-6 months, then at 18-24 months if no change Note: newly detected indeterminate nodule in persons 35 years of age or older. * Low risk patients: minimal or absent history of smoking and/or other known risk factors * high risk patients: history of smoking or of other known risk factors (e.g. first degree relative with lung cancer, or exposure to asbestos, radon, uranium) * if a nodule up to 8 mm is partly solid or is ground glass further follow-up is required after 24 months to exclude possible slow growing adenocarcinoma (LEXUS) SUBSOLID NODULES Solitary pure ground-glass nodule * nodule size <6 mm - no CT follow-up required * nodule size >=6 mm - follow-up CT at 6-12 months, then every 2 years until 5 years Solitary part-solid nodule * nodule size <6 mm - no CT follow-up required * nodule size >=6 mm - follow-up CT at 3-6 months. If unchanged, and solid component remains <6 mm, then annual follow-up for 5 years Multiple subsolid nodules * nodule size <6 mm - follow-up CT at 3-6 months, consider further follow-up at 2 and 4 years if stable * nodule size >=6 mm - follow-up CT at 3-6 months, subsequent management based on the most suspicious nodule(s) ACT 112: Negative or not required by law. Electronically signed by: Slim Ordoñez M.D. 11/24/2023 6:[address] 11/24/23 23:59 Exam(s): CT EXTREMITY RIGHT UPPER With Contrast IV Amt: 93 ML OPTIRAY 320 EXAM: CT Right Upper Extremity With Intravenous Contrast CLINICAL HISTORY: Reason for exam: injury, swollen right upper ext. TECHNIQUE: Axial computed tomography images of the right upper extremity with intravenous contrast. CTDI is 20 mGy and DLP is 1065 mGy-cm. Automated exposure control was utilized for the study. A dose lowering technique was utilized adhering to the principles of ALARA. CONTRAST: Patient received 93 ML OPTIRAY 320 of IV contrast COMPARISON: No relevant prior studies available. FINDINGS: There is no evidence of acute fracture or dislocation. There is marked circumferential subcutaneous edema of the imaged right forearm. Generalized body wall edema is also observed. IMPRESSION: Subcutaneous edema of the right arm. This could reflect cellulitis or generalized anasarca. There is also body wall edema suggesting anasarca. Electronically signed by: Marc Ovalle M.D. 11/25/23 03:[address] 11/24/23 23:59 Exam(s): CT EXTREMITY RIGHT UPPER With Contrast IV Amt: 93 ML OPTIRAY 320 EXAM: CT Right Upper Extremity With Intravenous Contrast CLINICAL HISTORY: Reason for exam: injury, swollen right upper ext. TECHNIQUE: Axial computed tomography images of the right upper extremity with intravenous contrast. Automated exposure control was utilized for the study. A dose lowering technique was utilized adhering to the principles of ALARA. CONTRAST: Patient received 93 ML OPTIRAY 320 of IV contrast COMPARISON: No relevant prior studies available. FINDINGS: Bones/joints: Unremarkable. No acute fracture or dislocation. Soft tissues: Diffuse subcutaneous edema. Edema and swelling of the biceps and triceps muscles. Lungs: Partially imaged right lower lobe airspace opacities concerning for pneumonia. IMPRESSION: 1. Diffuse subcutaneous edema, bland edema or cellulitis. 2. Edema and swelling of the biceps and triceps muscles, potentially myositis. 3. Right lower lobe pneumonia. Electronically signed by: Marc Ovalle M.D. 11/25/23 03:[address] 11/24/23 23:59 Exam(s): CT RIGHT SHOULDER Without Contrast EXAM: CT Right Upper Extremity Without Intravenous Contrast, Shoulder CLINICAL HISTORY: Reason for exam: injury right scsapula?. TECHNIQUE: Axial computed tomography images of the right shoulder without intravenous contrast. CTDI is 20 mGy and DLP is 351 mGy-cm. Automated exposure control was utilized for the study. A dose lowering technique was utilized adhering to the principles of ALARA. COMPARISON: No relevant prior studies available. FINDINGS: Bones/joints: Unremarkable. No acute fracture or dislocation. Soft tissues: Diffuse subcutaneous edema. Edematous, swollen biceps and triceps muscles. IMPRESSION: 1. Diffuse subcutaneous edema. This may represent bland edema or cellulitis. 2. Edematous, swollen biceps and triceps muscles. Finding may represent myositis. 3. No fracture. Scapula appears intact. Electronically signed by: Marc Ovalle M.D. 11/25/23 03:28 AM Venous Doppler Study 11/25/23 00:00 CR Exam(s): US VENOUS BILATERAL LOWER EXTREMITIES EXAM: US Duplex Bilateral Lower Extremities Veins CLINICAL HISTORY: Reason for exam: b/l lower ext edema. dvt?. TECHNIQUE: Real-time duplex ultrasound scan of the bilateral lower extremity veins integrating B-mode two-dimensional vascular structure, Doppler spectral analysis, color flow Doppler imaging and compression. COMPARISON: No relevant prior studies available. FINDINGS: Right deep veins: Unremarkable. No DVT in the right common femoral, femoral, proximal deep femoral or popliteal veins. The veins demonstrate normal color flow, are normally compressible, with normal phasic flow and/or augmentation response. Right superficial veins: Unremarkable. No thrombus in the visualized right great saphenous vein. Left deep veins: Nonocclusive acute DVT in the distal femoral vein. No DVT in the left common femoral, proximal or mid femoral vein, proximal deep femoral vein, or popliteal vein. Left superficial veins: Unremarkable. No thrombus in the visualized left great saphenous vein. Soft tissues: No acute findings. IMPRESSION: 1. Acute nonocclusive DVT in the distal left femoral vein. 2. No right lower extremity DVT. Communications: Verify Receipt with Nurse Electronically signed by: Marc Ovalle M.D. 11/25/23 03:58 AM Chest X-Ray 11/25/23 04:49 XR chest 1V portable HISTORY: aspiration COMPARISON: Chest CT 11/24/2023. FINDINGS: No pneumothorax. No pleural effusions. The heart is normal in size. No acute fractures. Calcified granuloma within the left lung apex. Patchy bibasilar airspace opacities most pronounced on the right. This is new from the prior study and likely represents a pneumonia. This could be secondary to aspiration. IMPRESSION: Patchy bibasilar airspace opacities most pronounced on the right. This is new from the prior study and likely represents a pneumonia. This could be secondary to aspiration. ACT 112: Negative or not required by law. Electronically signed by: Slim Ordoñez M.D. 11/25/2023 8:04 AM
--- NOTE | 2023-11-25 16:00 | Hospitalist Progress Note ---
Date of Service November 25, 2023 Assessment & Plan (1) Acute DVT (deep venous thrombosis): (2) Rhabdomyolysis: (3) PO (acute kidney injury): (4) Elevated troponin: (5) Falls: (6) Parkinsons disease: Plan 78-year-old male with past medical history significant for parkinsonism, hypothyroidism, CKD stage III, prostate cancer was brought in because of falls and also found to rhabdomyolysis and PO. Patient seems to be in the hospital. Currently living alone. Patient states he ambulates with cane and walker. He is having a lot of tremors and shakiness. Pressure injury seen on right posterior shoulder. And also there is erythema and swelling with the skin tears seen in the right buttocks region. Right upper extremity swollen. As per ER patient fell several times yesterday and apparently hit his head. Seems neighbors brought him back to his house yesterday. And today's afternoon patient noted to be slumped over a barstool in his house. His right arm was hanging over the back of the chair and was leaning to the right. In the ED, he was afebrile, somewhat tachycardic and shaky. Labs showed WBC 21, creatinine 1.6, initial lactic 2.4 and repeat 1.2, total creatinine kinase 43793, troponin 76, procalcitonin 1.8 US LE- 1. Acute nonocclusive DVT in the distal left femoral vein. 2. No right lower extremity DVT. CXR- Patchy bibasilar airspace opacities most pronounced on the right. This is new from the prior study and likely represents a pneumonia. This could be secondary to aspiration. CT shoulder- 1. Diffuse subcutaneous edema. This may represent bland edema or cellulitis. 2. Edematous, swollen biceps and triceps muscles. Finding may represent myositis. 3. No fracture. Scapula appears intact. CT humerus- 1. Diffuse subcutaneous edema, bland edema or cellulitis. 2. Edema and swelling of the biceps and triceps muscles, potentially myositis. 3. Right lower lobe pneumonia. CT forearm- Subcutaneous edema of the right arm. This could reflect cellulitis or generalized anasarca. There is also body wall edema suggesting anasarca. CT C/A/P- 1. No acute traumatic process within the chest, abdomen, or pelvis. 2. A 4 mm indeterminate subpleural nodule within the left lower lobe. Aspiration Pneumonia with hypoxia, ?cellulitis- WBC 21->7. Procal elevated at 1.8, lactate 2.4->1.2. CXR with RLL PNA. Continue empiric antibiotics pending final blood culture results. Possible cellulitis too per imaging. Check MRSA nares. Sputum clx if able to send> Wean down oxygen as tolerated. Acute DVT LLE- US shows left Leg proximal non occlusive DVT. Continue heparin drip. H and H stable and no acute bleeding noted. Will monitor. Rhabdomyolysis due to falls in setting of Parkinsonism- CPK 85002->8000. Continue IVF. RUE and right buttock swollen and erythematous. Ortho eval pending. PO on CKD stage III- Cr baseline of 1.1. On admission Cr 1.68->1.3 with IVF. Continue IVF. Recheck in am. Consult nephro if worsens. Likely related to rhabdomyolysis. Lower extremity edema- Seems chronic. Echo with normal LVEF and grade I diastolic dysfunction Aspiration- On the floor patient aspirated on lactulose and requiring oxygen. [employer] evaluation. Elevated troponin- likely demand ischemia and rhabdomyolysis. Troponin trend flat. Parkinsonism- Continue home meds. PT OT eval Hypothyroidism- Continue home Synthroid History of prostate cancer S/p surgery DVT prophylaxis- heparin drip. on iv protonix for GI prophylaxis. Dispo- TBD. Pending medical stability. On IVF for rhabdo, on IV heparin for DVT, on IV empiric ABx, PT OT eval Time spent- approx 50 mins Admission and Anticipated Discharge Date Admission Date: November 24, 2023 Subjective Patient was seen and examined at bedside. He states he is thirsty and wants some water. Observed him drinking water without any issues however noted his weak right side. States he has fallen multiple times. No fever, chills, CP, SOB, N/V. Review of Systems Review of Systems: All systems reviewed & are unremarkable except as noted in Subjective Physical Exam Physical Exam: General: Frail, elderly male, lying in bed, on supplemental oxygen, not in acute distress HEENT: YENNY, Dry oral mucosa Chest: Fair breath sounds anteriorly CVS: Tachycardic Abdomen: Soft, non tender, not distended, normal bowel sounds Neuro: Awake, alert, conversing appropriately Extremities: Bilateral hand tremors Results & Data Results & Data Vital Signs (Past 12 Hours) Vital Signs Temp Pulse Pulse Resp BP Pulse Ox O2 Del Method 11/25/23 11:48 37.3 C 97 H 18 120/73 93 Oxymask 11/25/23 11:41 96 H 11/25/23 10:42 Oxymask 11/25/23 07:11 37.4 C 93 H 18 123/70 94 Room Air 11/25/23 05:07 96 H 18 90 Nasal Cannula O2 Flow Rate 11/25/23 11:48 11/25/23 11:41 11/25/23 10:42 5 11/25/23 07:11 11/25/23 05:07 3 Laboratory Results Short CBC 11/24/23 11/25/23 Range/Units 17:20 05:19 WBC 21.10 H 7.34 D (4.8-10.8) K/ul Hgb 13.9 L 13.8 L (14.0-18.0) g/dl Hct 41.3 L 41.6 L (42.0-52.0) % Plt Count 253 204 (130-400) K/uL BMP 11/24/23 11/25/23 17:20 05:19 Sodium 143 142 Potassium 4.2 3.6 Chloride 104 110 H Carbon Dioxide 22 22 BUN 50 H 46 H Creatinine 1.68 H 1.30 D Glucose 136 H 125 H Calcium 9.8 8.4 L Cardiac Enzymes 11/24/23 11/25/23 Range/Units 17:20 05:19 Total Creatine Kinase 14165 H 8254 H (30-223) U/L Liver Function 11/24/23 Range/Units 17:20 Total Bilirubin 1.1 H (0.2-1.0) mg/dl Direct Bilirubin 0.3 H (0-0.2) mg/dl AST 314 H (13-39) U/L ALT 80 H (7-52) U/L Alkaline Phosphatase 78 (34-104) U/L Albumin 4.2 (3.4-5.0) gm/dl Urine 11/24/23 Range/Units 18:40 Urine Color Yellow Urine Appearance Clear (Clear) Urine pH 6.0 (4.5-7.5) Ur Specific [place] 1.025 (1.000-1.030) Urine Protein 2+ H (Negative) Urine Glucose (UA) Negative (Negative)
[2023-11-26] MEDS: LEVOTHYROXINE SODIUM 50 MCG TABLET PO SCH (05:48)
--- NOTE | 2023-11-26 06:46 | Electrocardiogram Report ---
Test Reason : Blood Pressure : / mmHG Vent. Rate : 161 BPM Atrial Rate : 102 BPM P-R Int : 000 ms QRS Dur : 070 ms QT Int : 280 ms P-R-T Axes : -15 026 062 degrees QTc Int : 458 ms Poor data quality, interpretation may be adversely affected Probably sinus rhythm No other interpretation possible When compared with ECG of 14-OCT-2015 07:11, Cannot compare Confirmed by Christian Echols ([id number]) on 11/26/2023 6:46:50 AM Referred By: REFERRED SELF Confirmed By:Christian Echols
--- NOTE | 2023-11-26 07:01 | Electrocardiogram Report ---
Test Reason : Blood Pressure : / mmHG Vent. Rate : 092 BPM Atrial Rate : 092 BPM P-R Int : 142 ms QRS Dur : 086 ms QT Int : 360 ms P-R-T Axes : 083 036 068 degrees QTc Int : 446 ms Normal sinus rhythm Normal ECG When compared with ECG of 24-NOV-2023 17:08, (unconfirmed) Quality of prior ECG precludes comparison Confirmed by Christian Echols ([id number]) on 11/26/2023 7:00:47 AM Referred By: REFERRED SELF Confirmed By:Christian Echols
[2023-11-26 07:29] LABS: Hemoglobin 11.1 g/dl (14.0-18.0); Mean Corpuscular Hemoglobin 30.2 pg (25.0-34.0); Mean Corpuscular Hgb Conc 33.6 g/dL (32.0-36.0); Mean Corpuscular Volume 89.9 fL (80.0-100.0); Mean Platelet Volume 10.2 fL (9.4-12.4); Platelet Count 150 K/uL (130-400); RDW Coefficient of Variation 12.5 % (11.5-14.5); RDW Standard Deviation 41.4 fL (36.4-46.3); Red Blood Count 3.67 M/uL (4.70-6.10); White Blood Count 8.96 K/ul (4.8-10.8)
[2023-11-26 07:50] LABS: ANTI-Xa, UFH(UnfractionatedHep 0.31 IU/ml (0.3-0.7)
[2023-11-26 08:01] LABS: Albumin Globulin Ratio 1.2 (0.9-2); Albumin Level 2.6 gm/dl (3.4-5.0); Bilirubin,Total 0.7 mg/dl (0.2-1.0); Calcium 7.6 mg/dl (8.6-10.3); Creatinine Clr Calc Pharmacy 65.3 ml/min; Est GFR (African American) 93.9 ml/min; Globulin 2.2 gm/dl (2.5-4.0); Magnesium 1.8 mg/dl (1.7-2.4); Phosphorus 1.6 mg/dl (2.5-4.9); Potassium 3.1 mmol/L (3.5-5.1); Total Protein 4.8 gm/dl (6.0-8.3)
[2023-11-26] MEDS ORDERED: POTASSIUM PHOS 3 MMOL/1 ML INFUSION IV STA (08:35)
--- NOTE | 2023-11-26 08:49 | Pharmacy Report ---
Pharmacy PK ABX Note - Date of Service November 26, 2023 - Assessment and Plan Assessment 11/25: Due to improvement in serum creatinine, will increase dosing frequency for better probability of achieving goal AUC/YUSUF. CXR consistent with pneumonia, noted to have aspirated on floor. Still concern for possible cellulitis. Continues on Zosyn/vancomycin. Cultures pending, MRSA nares negative. 11/24: 78 year old M receiving Zosyn/vancomycin for treatment of right shoulder and buttock wounds with possible cellulitis. Pertinent microbiologic data includes: blood cultures pending. Day # 1 of antimicrobial therapy. Plan Vancomycin * Loading dose: 1250 mg IV x 1 * Maintenance dose: 1000 mg IV every 24 hours * Regimen is predicted to achieve target AUC/YUSUF of 400-600 mg/L.hr * Random level ordered for: 11/28/23 @ 1000 Pharmacy will continue to follow and will adjust dose/frequency as necessary. Thank you. Pharmacy has transitioned to AUC monitoring for vancomycin. AUC/YUSUF is the preferred PK/PD target and is associated with decreased risk of nephrotoxicity compared to traditional trough targets.
--- NOTE | 2023-11-26 09:35 | Orthopedic Progress Note ---
Date of Service November 26, 2023 Assessment & Plan (1) Rupture of distal biceps tendon: Plan: The patient was educated regarding today's findings. Conservative care measures were discussed. He is not a surgical candidate at this time. Importance of elevating the arm to reduce swelling was discussed. He may use ice for pain control. He may also use Tylenol every 6 hours for relief of minor discomfort. We will continue to monitor while he is in the hospital. Follow-up in the office in 10 to 14 days for reassessment. Admission and Anticipated Discharge Date Admission Date: November 24, 2023 Subjective This 78-year-old male is seen today in his room. He is currently eating breakfast. He states his right shoulder and elbow feel better than yesterday. No other areas of increasing discomfort. No additional new complaints. He is currently on 2 L of oxygen. Physical Exam 2 Physical Exam: General: Frail, elderly male, in no acute distress. Laying in bed. Alert and oriented. Conversive. Skin: Warm and dry with good turgor. Right arm has generalized edema. There is 2+ pitting edema present on the dorsum of his hand and forearm. No open wounds. Musculoskeletal: The patient has no discomfort with palpation over his right sh oulder, bicep, tricep, elbow, forearm, wrist, or hand. He has intact motor function of the digits. Intact flexion and extension of the elbow as well as supination pronation. There is weakness associated with this. He has no discomfort with full passive flexion and extension of the elbow as well as supination pronation. Distal biceps tendon is not palpable. No discomfort with gentle circumduction of the shoulder. Range of motion was not assessed to endrange. Neurologic: Gross sensation is intact across the right arm by soft touch. He complains of decreased subjective sensation across the hand and digits, as though the are waking him from falling asleep. Peripheral pulses are 2+. Results & Data Vital Signs (Past 12 Hours) Vital Signs Temp Pulse Pulse Resp BP Pulse Ox O2 Del Method 11/26/23 07:43 36.7 C 14 143/70 H 99 Oxymask 11/26/23 02:22 36.2 C L 80 18 142/75 H 98 Oxymask 11/26/23 00:39 Oxymask 11/25/23 23:08 36.4 C L 101 H 18 137/81 99 Oxymask 11/25/23 22:00 79 O2 Flow Rate 11/26/23 07:43 5 11/26/23 02:22 5 11/26/23 00:39 5 11/25/23 23:08 5 11/25/23 22:00 Laboratory Results CBC obtained this morning shows a white count of 8.96. H&H of 11.1 and 33.0. Platelets 150,000. Sodium 140, potassium 3.1, chloride 110. BUN of 30 with creatinine 0.91. Glucose this morning is 130. Total CK remains elevated today at 2855.
[2023-11-26] MEDS: POTASSIUM CHLORIDE 10 MEQ TABCR PO STA (09:44)
[2023-11-26] MEDS: POTASSIUM PHOSPHATE 24 MMOL in SODIUM CHLORIDE 0.9% 500 ML IV ONE (09:45)
[2023-11-26] MEDS ORDERED: VANCOMYCIN HCL 1,000 MG in SODIUM CHLORIDE 0.9% 250 ML IV SCH (10:00)
--- NOTE | 2023-11-26 11:33 | Electrocardiogram Report ---
Test Reason : Blood Pressure : / mmHG Vent. Rate : 088 BPM Atrial Rate : 088 BPM P-R Int : 144 ms QRS Dur : 088 ms QT Int : 380 ms P-R-T Axes : 060 023 054 degrees QTc Int : 459 ms Normal sinus rhythm Normal ECG When compared with ECG of 25-NOV-2023 06:13, No significant change was found Confirmed by Rajinder Serna ([id number]) on 11/26/2023 11:33:07 AM Referred By: REFERRED SELF Confirmed By:Rajinder Serna
[2023-11-26] MEDS: POTASSIUM CHLORIDE 20 MEQ/15 ML UDC PO ONE (13:12)
--- NOTE | 2023-11-26 13:33 | Hospitalist Progress Note ---
Date of Service November 26, 2023 Assessment & Plan (1) Acute DVT (deep venous thrombosis): (2) Rhabdomyolysis: (3) PO (acute kidney injury): (4) Elevated troponin: (5) Falls: (6) Parkinsons disease: (7) Hypokalemia: (8) Hypophosphatemia: Plan 78-year-old male with past medical history significant for parkinsonism, hypothyroidism, CKD stage III, prostate cancer was brought in because of falls and also found to rhabdomyolysis and PO. Patient seems to be in the hosp ital. Currently living alone. Patient states he ambulates with cane and walker. He is having a lot of tremors and shakiness. Pressure injury seen on right posterior shoulder. And also there is erythema and swelling with the skin tears seen in the right buttocks region. Right upper extremity swollen. As per ER patient fell several times yesterday and apparently hit his head. Seems neighbors brought him back to his house yesterday. And today's afternoon patient noted to be slumped over a barstool in his house. His right arm was hanging over the back of the chair and was leaning to the right. In the ED, he was afebrile, somewhat tachycardic and shaky. Labs showed WBC 21, creatinine 1.6, initial lactic 2.4 and repeat 1.2, total creatinine kinase 33566, troponin 76, procalcitonin 1.8 US LE- 1. Acute nonocclusive DVT in the distal left femoral vein. 2. No right lower extremity DVT. CXR- Patchy bibasilar airspace opacities most pronounced on the right. This is new from the prior study and likely represents a pneumonia. This could be secondary to aspiration. CT shoulder- 1. Diffuse subcutaneous edema. This may represent bland edema or cellulitis. 2. Edematous, swollen biceps and triceps muscles. Finding may represent myositis. 3. No fracture. Scapula appears intact. CT humerus- 1. Diffuse subcutaneous edema, bland edema or cellulitis. 2. Edema and swelling of the biceps and triceps muscles, potentially myositis. 3. Right lower lobe pneumonia. CT forearm- Subcutaneous edema of the right arm. This could reflect cellulitis or generalized anasarca. There is also body wall edema suggesting anasarca. CT C/A/P- 1. No acute traumatic process within the chest, abdomen, or pelvis. 2. A 4 mm indeterminate subpleural nodule within the left lower lobe. Echo with normal LVEF and grade I diastolic dysfunction Aspiration Pneumonia with hypoxia, ?cellulitis- WBC 21->7. Procal elevated at 1.8, lactate 2.4->1.2. CXR with RLL PNA. MRSA nare negative. Continue zosyn, discontinue vancomycin, blood clx negative so far. Possible cellulitis too per imaging. Sputum clx if able to send. Wean down oxygen as tolerated. Acute DVT LLE- US shows left Leg proximal non occlusive DVT. Continue heparin drip. H and H stable and no acute bleeding noted. Will consider changing to eliquis as ortho does not plan for any procedures at this time. Rhabdomyolysis due to falls in setting of Parkinsonism- CPK 94273->8000->2855. Will decrease IVF. Rupture of distal biceps tendon due to fall- ortho following. recommended conservative management and OP follow up in the office in 10-14 days. Not a surgical candidate per ortho. PO on CKD stage III- Resolved. Cr back to baseline. On admission Cr 1.68->1.3->0.9 with IVF. Continue gentle IVF. Recheck in am. Likely related to rhabdomyolysis. Elevated troponin- likely demand ischemia and rhabdomyolysis. Troponin trend flat. Parkinsonism- Continue home meds. PT OT eval Hypothyroidism- Continue home Synthroid History of prostate cancer s/p surgery Hypokalemia- repleted, recheck in am Hypophosphatemia- repleted, recheck in am DVT prophylaxis- heparin drip. on iv protonix for GI prophylaxis. Dispo- TBD. Pending medical stability. Time spent- approx 50 mins Admission and Anticipated Discharge Date Admission Date: November 24, 2023 Subjective Patient was seen and examined at bedside. He looks better from yesterday but states he feels terrible because of the weakness. He is AAO and conversing appropriately. Discussed the labs, imaging and plan of care. No fever, chills, CP, SOB, N/V. Review of Systems Review of Systems: All systems reviewed & are unremarkable except as noted in Subjective Physical Exam Physical Exam: General: Elderly male, sitting in bed, on supplemental oxygen, not in acute distress HEENT: YENNY, MMM Chest: Fair breath sounds anteriorly CVS: Regular, normal heart sounds Abdomen: Soft, non tender, not distended, normal bowel sounds Neuro: Awake, alert, conversing appropriately Extremities: Bilateral hand tremors signficantly improved Results & Data Results & Data Vital Signs (Past 12 Hours) Vital Signs Temp Pulse Resp BP Pulse Ox O2 Del Method O2 Flow Rate 11/26/23 11:04 Room Air 11/26/23 07:43 36.7 C 14 143/70 H 99 Oxymask 5 11/26/23 02:22 36.2 C L 80 18 142/75 H 98 Oxymask 5 Laboratory Results Short CBC 11/26/23 Range/Units 07:08 WBC 8.96 (4.8-10.8) K/ul Hgb 11.1 L (14.0-18.0) g/dl Hct 33.0 L (42.0-52.0) % Plt Count 150 (130-400) K/uL BMP 11/26/23 07:08 Sodium 140 Potassium 3.1 L Chloride 110 H Carbon Dioxide 25 BUN 30 H Creatinine 0.91 D Glucose 130 H Calcium 7.6 L Cardiac Enzymes 11/26/23 Range/Units 07:08 Total Creatine Kinase 2855 H (30-223) U/L Liver Function 11/26/23 Range/Units 07:08 Total Bilirubin 0.7 (0.2-1.0) mg/dl AST 160 H (13-39) U/L ALT 27 (7-52) U/L Alkaline Phosphatase 46 (34-104) U/L Albumin 2.6 L (3.4-5.0) gm/dl
[2023-11-27 06:37] LABS: Hematocrit (blood only) 29.1 % (42.0-52.0); Hemoglobin 9.8 g/dl (14.0-18.0); Mean Corpuscular Hemoglobin 30.6 pg (25.0-34.0); Mean Corpuscular Hgb Conc 33.7 g/dL (32.0-36.0); Mean Corpuscular Volume 90.9 fL (80.0-100.0); Mean Platelet Volume 10.7 fL (9.4-12.4); Platelet Count 124 K/uL (130-400); RDW Coefficient of Variation 12.4 % (11.5-14.5); RDW Standard Deviation 41.1 fL (36.4-46.3); White Blood Count 7.74 K/ul (4.8-10.8)
[2023-11-27 06:55] LABS: ANTI-Xa, UFH(UnfractionatedHep 0.32 IU/ml (0.3-0.7); BUN Creatinine Ratio 21.4 (10-20); Calcium 7.3 mg/dl (8.6-10.3); Creatinine Clr Calc Pharmacy 75.6 ml/min; Est GFR (African American) 97.9 ml/min; Est GFR (Non-African American) 84.5 ml/min; Potassium 3.1 mmol/L (3.5-5.1)
[2023-11-27 07:05] LABS: Magnesium 1.7 mg/dl (1.7-2.4); Phosphorus 1.3 mg/dl (2.5-4.9)
[2023-11-27] MEDS ORDERED: POTASSIUM PHOS 3 MMOL/1 ML INFUSION IV STA (07:24)
[2023-11-27 08:42] LABS: Hemoglobin 9.9 g/dl (14.0-18.0)
[2023-11-27] MEDS: POTASSIUM PHOSPHATE 30 MMOL in SODIUM CHLORIDE 0.9% 500 ML IV ONE (09:02)
[2023-11-27] MEDS: POTASSIUM CHLORIDE CRTAB 20 MEQ TABCR PO STA (09:18)
[2023-11-27 09:19] LABS: Ferritin 377.7 ng/ml (8-388)
[2023-11-27 09:26] LABS: Folate (Folic Acid),Ser orPlas 6.88 ng/ml (>5.38)
--- NOTE | 2023-11-27 12:20 | Hospitalist Progress Note ---
Date of Service November 27, 2023 Assessment & Plan (1) Acute DVT (deep venous thrombosis): (2) Rhabdomyolysis: (3) PO (acute kidney injury): (4) Elevated troponin: (5) Falls: (6) Parkinsons disease: (7) Hypokalemia: (8) Hypophosphatemia: Plan 78-year-old male with past medical history significant for parkinsonism, hypothyroidism, CKD stage III, prostate cancer was brought in because of falls and also found to rhabdomyolysis and PO. Patient seems to be in the hosp ital. Currently living alone. Patient states he ambulates with cane and walker. He is having a lot of tremors and shakiness. Pressure injury seen on right posterior shoulder. And also there is erythema and swelling with the skin tears seen in the right buttocks region. Right upper extremity swollen. As per ER patient fell several times yesterday and apparently hit his head. Seems neighbors brought him back to his house yesterday. And today's afternoon patient noted to be slumped over a barstool in his house. His right arm was hanging over the back of the chair and was leaning to the right. In the ED, he was afebrile, somewhat tachycardic and shaky. Labs showed WBC 21, creatinine 1.6, initial lactic 2.4 and repeat 1.2, total creatinine kinase 00462, troponin 76, procalcitonin 1.8 US LE- 1. Acute nonocclusive DVT in the distal left femoral vein. 2. No right lower extremity DVT. CXR- Patchy bibasilar airspace opacities most pronounced on the right. This is new from the prior study and likely represents a pneumonia. This could be secondary to aspiration. CT shoulder- 1. Diffuse subcutaneous edema. This may represent bland edema or cellulitis. 2. Edematous, swollen biceps and triceps muscles. Finding may represent myositis. 3. No fracture. Scapula appears intact. CT humerus- 1. Diffuse subcutaneous edema, bland edema or cellulitis. 2. Edema and swelling of the biceps and triceps muscles, potentially myositis. 3. Right lower lobe pneumonia. CT forearm- Subcutaneous edema of the right arm. This could reflect cellulitis or generalized anasarca. There is also body wall edema suggesting anasarca. CT C/A/P- 1. No acute traumatic process within the chest, abdomen, or pelvis. 2. A 4 mm indeterminate subpleural nodule within the left lower lobe. Echo with normal LVEF and grade I diastolic dysfunction Aspiration Pneumonia with hypoxia, ?cellulitis- WBC 21->7. Procal elevated at 1.8, lactate 2.4->1.2. CXR with RLL PNA. MRSA nare negative. Continue zosyn, discontinued vancomycin, blood clx negative so far. Possible cellulitis too per imaging. Sputum clx if able to send. Hypoxia resolved, now on room air. Acute DVT LLE- US shows left Leg proximal non occlusive DVT. Continue heparin drip. H and H trending down but no evidence of bleeding noted. Will send anemia work up and continue heparin drip for now. Change to DOACs when stable. Anemia, Hemoglobin drop, Vitamin B12 deficiency- Hb trend 13.9->13.8->11->9.8->9.9. B12 170 as he is vegan. Folate normal. Iron studies okay. Will trend H and H, check LDH, hapto, FOBT. Will start on IM B12 daily for 5 dose and then PO B12 supplementation. Currently no GI bleeding noted. Will hold off on GI eval for now. Rhabdomyolysis due to falls in setting of Parkinsonism- CPK 20009->8000->2855->1716. Continue gentle IVF. Rupture of distal biceps tendon due to fall- ortho following. recommended conservative management and OP follow up in the office in 10-14 days. Not a surgical candidate per ortho. PO on CKD stage III- Resolved. Cr back to baseline. On admission Cr 1.68->1.3->0.9->0.8 with IVF. Continue gentle IVF. Recheck in am. Likely related to rhabdomyolysis. Elevated troponin- likely demand ischemia and rhabdomyolysis. Troponin trend flat. Parkinsonism- Continue home meds. PT OT eval Hypothyroidism- Continue home Synthroid History of prostate cancer s/p surgery Hypokalemia- repleted, recheck in am Hypophosphatemia- repleted IV, recheck in am DVT prophylaxis- heparin drip. on iv protonix for GI prophylaxis. Dispo- PT OT recommends rehab. Anticipate he can be discharged in 1-2 days if remains stable. Anemia work up in progress. Time spent- approx 50 mins Admission and Anticipated Discharge Date Admission Date: November 24, 2023 Subjective Patient was seen and examined at bedside. He feels fine. States he can move his RUE and he feels happy. States he is only eating fruits as he is a vegan. States he is expecting a BM today. Denies any bleeding. No N/V/fever or chills. Discussed about the lab findings including Hb drop and next steps. Review of Systems Review of Systems: All systems reviewed & are unremarkable except as noted in Subjective Physical Exam Physical Exam: General: Elderly male, sitting in chair on NC. not in acute distress HEENT: ANKITA RAMON Chest: Fair breath sounds bilaterally CVS: Regular, normal heart sounds Abdomen: Soft, non tender, not distended, normal bowel sounds Neuro: Awake, alert, conversing appropriately. Able to move RUE now. Extremities: Bilateral hand tremors resolved. [place] with clear urine Results & Data Results & Data Vital Signs (Past 12 Hours) Vital Signs Temp Pulse Pulse Resp BP BP Pulse Ox 11/27/23 10:54 36.9 C 75 18 151/84 H 96 11/27/23 08:17 66 11/27/23 07:23 36.8 C 59 L 16 127/69 94 11/27/23 02:31 36.3 C L 72 18 130/68 95 O2 Del Method 11/27/23 10:54 Room Air 11/27/23 08:17 11/27/23 07:23 Room Air 11/27/23 02:31 Room Air Laboratory Results Short CBC 11/27/23 11/27/23 Range/Units 06:07 08:08 WBC 7.74 (4.8-10.8) K/ul Hgb 9.8 L 9.9 L (14.0-18.0) g/dl Hct 29.1 L 29.0 L (42.0-52.0) % Plt Count 124 L (130-400) K/uL BMP 11/27/23 06:07 Sodium 137 Potassium 3.1 L Chloride 108 H Carbon Dioxide 24 BUN 18 Creatinine 0.84 Glucose 98 Calcium 7.3 L Cardiac Enzymes 11/27/23 Range/Units 06:07 Total Creatine Kinase 1716 H (30-223) U/L
[2023-11-27] MEDS: CYANOCOBALAMIN 1000 MCG/ML VIAL IM SCH (13:14)
[2023-11-28 00:08] LABS: Hemoglobin 10.3 g/dl (14.0-18.0)
[2023-11-28 06:26] LABS: Hematocrit (blood only) 31.4 % (42.0-52.0); Hemoglobin 10.5 g/dl (14.0-18.0); Mean Corpuscular Hemoglobin 29.7 pg (25.0-34.0); Mean Corpuscular Hgb Conc 33.4 g/dL (32.0-36.0); Mean Platelet Volume 10.9 fL (9.4-12.4); Platelet Count 137 K/uL (130-400); RDW Coefficient of Variation 12.2 % (11.5-14.5); RDW Standard Deviation 39.6 fL (36.4-46.3); Red Blood Count 3.53 M/uL (4.70-6.10); White Blood Count 9.11 K/ul (4.8-10.8)
[2023-11-28 06:31] LABS: BUN Creatinine Ratio 17.5 (10-20); Calcium 7.6 mg/dl (8.6-10.3); Creatinine Clr Calc Pharmacy 80.5 ml/min; Est GFR (African American) 99.9 ml/min; Est GFR (Non-African American) 86.2 ml/min; Magnesium 1.6 mg/dl (1.7-2.4); Phosphorus 1.8 mg/dl (2.5-4.9); Potassium 3.3 mmol/L (3.5-5.1)
[2023-11-28] MEDS ORDERED: POTASSIUM PHOS 3 MMOL/1 ML INFUSION IV STA (08:51)
[2023-11-28 08:55] LABS: ANTI-Xa, UFH(UnfractionatedHep 0.36 IU/ml (0.3-0.7)
[2023-11-28] MEDS: FERROUS SULFATE 325 MG TAB PO SCH (10:09)
[2023-11-28] MEDS: FOLIC ACID 1 MG TAB PO SCH (10:09)
[2023-11-28] MEDS: CYANOCOBALAMIN (B-12) 500 MCG TABLET PO SCH (10:09)
[2023-11-28] MEDS: POTASSIUM CHLORIDE CRTAB 20 MEQ TABCR PO STA (10:09)
[2023-11-28] MEDS: POTASSIUM PHOSPHATE 21 MMOL in SODIUM CHLORIDE 0.9% 500 ML IV ONE (12:22)
[2023-11-28] MEDS: MAGNESIUM SULFATE / D5W 1 GM/100 ML BAG IV SCH (12:22)
--- NOTE | 2023-11-28 16:17 | Hospitalist Progress Note ---
Date of Service November 28, 2023 Assessment & Plan (1) Acute DVT (deep venous thrombosis): (2) Rhabdomyolysis: (3) PO (acute kidney injury): (4) Elevated troponin: (5) Falls: (6) Parkinsons disease: (7) Hypokalemia: (8) Hypophosphatemia: Plan 78-year-old male with past medical history significant for parkinsonism, hypothyroidism, CKD stage III, prostate cancer was brought in because of falls and also found to rhabdomyolysis and PO. Patient seems to be in the hosp ital. Currently living alone. Patient states he ambulates with cane and walker. He is having a lot of tremors and shakiness. Pressure injury seen on right posterior shoulder. And also there is erythema and swelling with the skin tears seen in the right buttocks region. Right upper extremity swollen. As per ER patient fell several times yesterday and apparently hit his head. Seems neighbors brought him back to his house yesterday. And today's afternoon patient noted to be slumped over a barstool in his house. His right arm was hanging over the back of the chair and was leaning to the right. In the ED, he was afebrile, somewhat tachycardic and shaky. Labs showed WBC 21, creatinine 1.6, initial lactic 2.4 and repeat 1.2, total creatinine kinase 52379, troponin 76, procalcitonin 1.8 US LE- 1. Acute nonocclusive DVT in the distal left femoral vein. 2. No right lower extremity DVT. CXR- Patchy bibasilar airspace opacities most pronounced on the right. This is new from the prior study and likely represents a pneumonia. This could be secondary to aspiration. CT shoulder- 1. Diffuse subcutaneous edema. This may represent bland edema or cellulitis. 2. Edematous, swollen biceps and triceps muscles. Finding may represent myositis. 3. No fracture. Scapula appears intact. CT humerus- 1. Diffuse subcutaneous edema, bland edema or cellulitis. 2. Edema and swelling of the biceps and triceps muscles, potentially myositis. 3. Right lower lobe pneumonia. CT forearm- Subcutaneous edema of the right arm. This could reflect cellulitis or generalized anasarca. There is also body wall edema suggesting anasarca. CT C/A/P- 1. No acute traumatic process within the chest, abdomen, or pelvis. 2. A 4 mm indeterminate subpleural nodule within the left lower lobe. Echo with normal LVEF and grade I diastolic dysfunction Aspiration Pneumonia with hypoxia, ?cellulitis RUE- WBC 21->wnl. Procal elevated at 1.8, lactate 2.4->1.2. CXR with RLL PNA. MRSA nare negative. Continue zosyn 11/24, blood clx negative so far. Possible cellulitis too per imaging. Sputum clx if able to send. Hypoxia resolved, now on room air. Acute DVT LLE- US shows left Leg proximal non occlusive DVT. Continue heparin drip. H and H stable lately. Continue heparin drip for now. Change to DOACs when stable. Pt would like eliquis. Anemia, Hemoglobin drop, Vitamin B12 deficiency- Hb dropped from 13.9 to lowest of 9.8, now gradually trending up and stable. Noted vit B12 def. Folate and iron stores ok. c/w vit b12 supplement. No GI bleed noted. monitor. follow fobt. if fobt neg, will dc protonix. Rhabdomyolysis due to falls in setting of Parkinsonism- CPK [id number]->[id number]->[id number]->1716. Continue gentle IVF. Rupture of distal biceps tendon due to fall- ortho following. recommended conservative management and OP follow up in the office in 10-14 days. Not a surgical candidate per ortho. PO on CKD stage III- Resolved. Cr back to baseline. Likely related to rhab domyolysis. Elevated troponin- likely demand ischemia and rhabdomyolysis. Troponin trend flat. Parkinsonism- Continue home meds. PT OT eval Hypothyroidism- Continue home Synthroid History of prostate cancer s/p surgery Hypokalemia- repleted, recheck in am Hypophosphatemia- repleted IV, recheck in am DVT prophylaxis- heparin drip. on iv protonix for GI prophylaxis. Dispo- PT OT recommends rehab. can dc to rehab. Time spent- approx 50 mins Admission and Anticipated Discharge Date Admission Date: November 24, 2023 Subjective Patient was seen and examined at bedside. He feels fine. States he can move his RUE w/ physical therapy and as the day passes by and he feels happy. Reports eating ok, moving bowels ok. Denies any bleeding. No N/V/fever or chills. Agreeable to eliquis is cost is acceptable for custodial anticoagulation after indepth discussion on diff types of anticoagulation options. Physical Exam Physical Exam: General: Elderly male, lying in bed. not in acute distress HEENT: ANKITA RAMON Chest: Fair breath sounds bilaterally CVS: Regular, normal heart sounds Abdomen: Soft, non tender, not distended, normal bowel sounds Neuro: Awake, alert, conversing appropriately. Able to move RUE now. Extremities: RUE w/ iv fluid infiltrations/edema noted. no s/s of infection. Barrera with clear urine Results & Data Results & Data Vital Signs (Past 12 Hours) Vital Signs Temp Pulse Pulse Resp BP Pulse Ox O2 Del Method 11/28/23 14:49 36.5 C 77 17 180/83 H 98 Room Air 11/28/23 11:57 83 17 162/77 H 97 Room Air 11/28/23 08:05 36.5 C 68 18 161/76 H 94 Room Air 11/28/23 07:45 80
[2023-11-29] MEDS: ACETAMINOPHEN 325 MG TAB PO PRN (06:18)
--- NOTE | 2023-11-29 06:19 | Communication Note ---
Date of Service: November 29, 2023 Patient complaining of worsening swelling and pain right pectoral muscle as per RN. "muscle is hard and balled up, warm to touch," as per RN. AP Right pectoral muscle swelling History of trauma Ongoing IV anticoagulation for blood clot Rule out hematoma Hold IV heparin for now CT chest Will relay to AM provider.
[2023-11-29] MEDS ORDERED: MoRPHine SULFATE 2 MG/ML CARP IV PRN (06:20)
[2023-11-29] MEDS ORDERED: PROMETHAZINE HCL 6.25 MG in SODIUM CHLORIDE 0.9% 50 ML IV PRN (06:22)
[2023-11-29 06:29] LABS: Hematocrit (blood only) 29.2 % (42.0-52.0); Hemoglobin 10.1 g/dl (14.0-18.0); Mean Corpuscular Hemoglobin 30.5 pg (25.0-34.0); Mean Corpuscular Hgb Conc 34.6 g/dL (32.0-36.0); Mean Corpuscular Volume 88.2 fL (80.0-100.0); Mean Platelet Volume 10.8 fL (9.4-12.4); Platelet Count 171 K/uL (130-400); RDW Coefficient of Variation 12.1 % (11.5-14.5); RDW Standard Deviation 38.8 fL (36.4-46.3); Red Blood Count 3.31 M/uL (4.70-6.10); White Blood Count 8.85 K/ul (4.8-10.8)
[2023-11-29 06:49] LABS: ANTI-Xa, UFH(UnfractionatedHep 0.51 IU/ml (0.3-0.7)
[2023-11-29 07:51] LABS: BUN Creatinine Ratio 12.5 (10-20); Calcium 7.6 mg/dl (8.6-10.3); Creatinine Clr Calc Pharmacy 89.4 ml/min; Est GFR (African American) 104.3 ml/min; Magnesium 1.7 mg/dl (1.7-2.4); Phosphorus 2.1 mg/dl (2.5-4.9); Potassium 3.6 mmol/L (3.5-5.1)
[2023-11-29] MEDS: OPTIRAY 320 100ml IV ONE (07:53)
--- NOTE | 2023-11-29 08:42 | CT Scan Report ---
CHEST CT WITH CONTRAST CT DOSE: 773.82 mGy.cm HISTORY: Acute persistent pain and soft tissue swelling of the chest and right upper extremity. wors ening swelling R pec TECHNIQUE: Multiaxial CT images of the chest were performed following the IV administration of 94 cc of Optiray. A dose lowering technique was utilized adhering to the principles of ALARA. COMPARISON: CT right shoulder 11/25/2023, chest CT 11/24/2023 FINDINGS: Unremarkable thyroid. The central airways are patent. There is no pneumothorax. There is a punctate calcified granuloma within the left upper lobe. There are a few scattered low suspicion aramis d pulmonary nodules redemonstrated measuring up to approximately 3-4 mm. These are likely benign. The previously noted 4 mm subpleural solid nodule within the left lower lobe is not clearly seen on tozoey y's study secondary to obscuring consolidation. Small to moderate layering pleural effusions with dep endent bibasilar consolidation demonstrating heterogeneous enhancement is new from the prior CT. 10 m m groundglass nodular focus within the anterior segment right upper lobe on image 137 is new from casandra or which may be infectious or inflammatory. No acute fractures within the chest. The heart is normal in size. No pericardial effusion. Mild calci fied plaque within the normal caliber thoracic aorta. No mediastinal or hilar lymphadenopathy. Normal caliber esophagus. Interval development of a large hematoma involving the majority of the right breast overall measuring approximately 10.6 x 5.9 x 11.5 cm demonstrating several areas of acute active extravasation with la yering hematocrit level. Subcutaneous and deep tissue edema and hemorrhage extends into the surroundi ng tissues and pectoralis musculature. There is persistent body wall edema which is most pronounced i n the right shoulder girdle and right latissimus distributions which may represent additional areas o f hemorrhage. Findings are similar to the 11/25/2023 exam. This tracks into the posterior back. IMPRESSION: 1. Interval development of a large right breast hematoma measuring up to approximately 11.5 cm with s everal areas of active extravasation. This was made as a call report at time of dictation. 2. Additional areas of soft tissue hemorrhage/edema within the right shoulder and back redemonstrated . 3. [id number] layering pleural effusions with bibasilar consolidation suggestive of an admixtu re of atelectasis with infectious or inflammatory pneumonitis. 4. No lymphadenopathy. ACT 112: Negative or not required by law. Electronically signed by: Dipak Irving M.D. 11/29/2023 8:40 AM
--- NOTE | 2023-11-29 09:01 | Surgery Consultation ---
Date of Consultation November 29, 2023 Assessment & Plan (1) Hematoma: This is a 78yM with a PMH of parkinson's, falls, CKD, hypothyroid, tremor, who presents to the [facility] on 11/23 after sustaining several falls at home. Workup he was found to be in rhabdomyolysis with bruising to buttocks + R biceps/triceps myositis with recommendations for conservative care, in addition to being started on a hep gtt for an acute non occlusive DVT of the distal L femoral vein. Patient reports over the last 2-3 days he noticed some pain in his R upper chest that has progressively become more severe and associated with progressive swelling. Due to this a CT chest was obtained this AM which revealed interval development of a large right breast hematoma measuring up to approximately 11.5 cm with several areas of active extravasation. Patient currently rates the pain an 8/10 in severity in the R chest going into his R biceps region. This AM's blood work shows Hbg 10.1 (10.3). Vital signs are stable. On examination patient appears uncomfortable 2/2 pain with a firm, round, area of tenderness overlying the R pec/chest region. There are no overlying skin changes/bruising. The area is about the size of a baseball in swelling. He currently has an icepack in the region which I agree with. Hep gtt has been stopped. Can also consider an abdominal binder vs CHARLES wrap if feasible for pressure. PRN pain control ordered. Will discuss with Dr. Austin for plans of watchful waiting, hbg monitoring, supportive care vs. indications requiring surgical intervention as he did eat bfast this AM. Will follow up w/ hospitalist team shortly. History of Present Illness Attending Physician: Alexus Nix MD History of Present Illness This is a 78yM with a PMH of parkinson's, falls, CKD, hypothyroid, tremor, who presents to the [facility] on 11/23 after sustaining several falls at home. He lives at home currently. Workup he was found to be in rhabdomyolysis with bruising to buttocks. He was evaluated by ortho for + R biceps/triceps myositis with recommendations for conservative care in addition to being started on a hep gtt for an acute non occlusive DVT of the distal L femoral vein. Patient reports over the last 2-3 days he noticed some pain in his R upper chest that has progressively become more severe and associated with progressive swelling. Due to this a CT chest was obtained this AM which revealed interval development of a large right breast hematoma measuring up to approximately 11.5 cm with several areas of active extravasation. Patient currently rates the pain an 8/10 in severity in the R chest going into his R biceps region. He denies SOB, fevers/chills, n/v, lightheadedness/dizziness. He did eat some grapes and honey dew for bfast. Allergies Allergy/AdvReac Type Severity Reaction Status Date / Time gluten Allergy Intermediate GI SYMPTOMS Verified 11/24/23 17:44 levofloxacin AdvReac Severe Patient Verified 11/24/23 17:44 states it makes him deathly sick. Home Medications Medication Instructions Recorded Confirmed Type carbidopa 25 mg-levodopa 100 mg 2 tab (2 x 25-100 mg) PO QID 90 11/08/23 11/24/23 Rx tablet (Sinemet) days #720 Tabs ergocalciferol (vitamin D2) 1,250 1,250 mcg PO MONTHLY 11/24/23 11/24/23 History mcg (50,000 unit) capsule levothyroxine 50 mcg tablet 50 mcg PO Q OTHER DAY 11/24/23 11/24/23 History levothyroxine 75 mcg tablet 75 mcg PO Q OTHER DAY 11/24/23 11/24/23 History apixaban 5 mg tablet (Eliquis) 5 mg PO UD #74 tabs 11/28/23 Rx Patient History Social History Smoking Status: Never smoker Second Hand Exposure: No; Do You Dip or Chew Tobacco: No; Tobacco Cessation Education Requested by Patient: No Hx Alcohol Use: No Hx Substance Use: No Preferred Language: Japanese Communication Ability: Effective Visual Impairment: No Limitations Hearing Ability: Normal Credit Risk Modeler Required: No Beliefs That Will Affect Care: None Current Living Situation: Spouse current occupational status: retired Other Information That Helps Us Care for You: No Feels Safe at Home: Yes Safety Concerns: Feels Safe At This Time Diet: regular Seatbelt Use: always Do you think of yourself as: straight/heterosexual Gender Identity: Male Assistive Devices: Walker Review of Systems Constitutional: no fever and no chills Respiratory: no dyspnea Cardiovascular: no chest pain Gastrointestinal: no abdominal pain, no nausea, no vomiting and no change in bowel habits Musculoskeletal: + pain and swelling of R chest region Neurologic: + falls; no dizziness Physical Exam Physical Exam: awake, appears uncomfortable 2/2 pain Respiratory: normal respiratory effort; no respiratory distress Cardiovascular: Rate/Rhythm: regular rate Chest (Breasts): Additional Comments: R chest around pectoralis region is swollen, firm, and tender about the size of a baseball/softball. no overlying skin changes Musculoskeletal: R arm edema Results & Data Vital Signs (Past 12 Hours) Vital Signs Temp Pulse Pulse Resp BP Pulse Ox O2 Del Method 11/29/23 07:26 73 11/29/23 07:03 97.7 F 67 19 156/77 H 96 Room Air 11/29/23 03:29 98.4 F 77 18 177/79 H 96 Room Air 11/28/23 22:28 83 11/28/23 22:02 98.1 F 76 18 176/95 H 98 Room Air Diagnostic Findings CHEST CT WITH CONTRAST CT DOSE: 773.82 mGy.cm HISTORY: Acute persistent pain and soft tissue swelling of the chest and right upper extremity. worsening swelling R pec TECHNIQUE: Multiaxial CT images of the chest were performed following the IV administration of 94 cc of Optiray. A dose lowering technique was utilized adhering to the principles of ALARA. COMPARISON: CT right shoulder 11/25/2023, chest CT 11/24/2023 FINDINGS: Unremarkable thyroid. The central airways are patent. There is no pneumothorax. There is a punctate calcified granuloma within the left upper lobe. There are a few scattered low suspicion solid pulmonary nodules redemonstrated measuring up to approximately 3-4 mm. These are likely benign. The previously noted 4 mm subpleural solid nodule within the left lower lobe is not clearly seen on today's study secondary to obscuring consolidation. Small to moderate layering pleural effusions with dependent bibasilar consolidation demonstrating heterogeneous enhancement is new from the prior CT. 10 mm groundglass nodular focus within the anterior segment right upper lobe on image 137 is new from prior which may be infectious or inflammatory. No acute fractures within the chest. The heart is normal in size. No pericardial effusion. Mild calcified plaque within the normal caliber thoracic aorta. No mediastinal or hilar lymphadenopathy. Normal caliber esophagus. Interval development of a large hematoma involving the majority of the right breast overall measuring approximately 10.6 x 5.9 x 11.5 cm demonstrating several areas of acute active extravasation with layering hematocrit level. Subcutaneous and deep tissue edema and hemorrhage extends into the surrounding tissues and pectoralis musculature. There is persistent body wall edema which is most pronounced in the right shoulder girdle and right latissimus distributions which may represent additional areas of hemorrhage. Findings are similar to the 11/25/2023 exam. This tracks into the posterior back. IMPRESSION: 1. Interval development of a large right breast hematoma measuring up to approximately 11.5 cm with several areas of active extravasation. This was made as a call report at time of dictation. 2. Additional areas of soft tissue hemorrhage/edema within the right shoulder and back redemonstrated. 3. Ojbfz-qb-xzjucstl layering pleural effusions with bibasilar consolidation suggestive of an admixture of atelectasis with infectious or inflammatory pneumonitis. 4. No lymphadenopathy. ACT 112: Negative or not required by law. Electronically signed by: Dipak Irving M.D. 11/29/2023 8:40 AM PG Care Time/CCT Total # of Minutes Spent Total Time Spent with Patient: Total time spent is greater than 50% in coordination of care (as documented) at patient's floor/unit and/or counseling patient: Coding Level of Care Code 30870 INT INP/OBS CARE 2/55MIN Diagnoses Hematoma T14.8XXA
[2023-11-29] MEDS: oxyCODONE HCL IR 5 MG TAB (IMMEDIATE RELEASE) PO PRN (09:02)
--- NOTE | 2023-11-29 09:58 | Orthopedic Progress Note ---
Date of Service November 29, 2023 Assessment & Plan (1) Chest wall hematoma: Plan: The patient was educated regarding today's findings. Conservative care measures were discussed. His heparin has been stopped. I suspect this allowed the bleeding to start and extravasate into the surrounding tissue. Ice was applied to his chest wall. He did not tolerate it. He only had Tylenol this morning for pain control. Oxycodone was requested from his nurse for pain control. He can reattempt the ice application after the oxycodone is on board. Hematoma will tamponade in the time. He does not require surgical intervention at this point. Possibility of carpal tunnel syndrome was discussed with the patient given his current symptoms, and his arm edema. He will be reassessed throughout the weekend. Will see how he does throughout the day today. Admission and Anticipated Discharge Date Admission Date: November 24, 2023 Supervising Physician Co-Signing Physician Notes I, Dr. Forte, saw and examined the patient. I discussed the management with my PA. I reviewed my PAs note and agree with the documented findings and attest to completing the substantive portion of medical decision making and plan of care I developed. Patient noted that the sensation to the hand was improving. Subjective This 78-year-old male is seen today in his room. He is having exquisite pain in his right chest wall this morning. He states swelling developed around 1:30 AM and has persisted. He is having exquisite pain in the pectoral muscle that is extending to his humerus and elbow. There was no new trauma. He denies any shortness of breath. He is not sure why it swelled. CT scan imaging was obtained this morning. He is unsure of the results. Physical Exam Physical Exam: General: Well-developed, elderly male, in no acute distress. Obvious discomfort. Laying in bed. Frequently grimacing in pain. Alert and oriented. Skin: Warm and dry with good turgor. He has an extensive amount of edema present in the right pectoral muscle. This is new since I last saw him. Slight ecchymosis is developing across the tail of the pectoral muscle. There is also continued edema and ecchymosis in his right arm, forearm, and hand. Musculoskeletal: The patient has significant tenderness with palpation over the right pectoral muscle. It is very firm due to the edema. He describes pain in the shoulder as well as over the scapula posteriorly. There is no appreciable edema posteriorly. He complains of pain in the right arm, though palpation of the arm does not increase the pain. Though he has edema in the arm, the muscle compartments are soft and supple. He has intact motor function to the right wrist and digits. He is able to flex and extend his fingers. He is able to oppose the thumb. Thumb extension and wrist extension are intact. Neurologic: Gross sensation is intact across the right arm by soft touch. He has decreased subjective sensation across the median nerve distribution of the hand and digits. Peripheral pulses are 2+. Results & Data Vital Signs (Past 12 Hours) Vital Signs Temp Pulse Pulse Resp BP Pulse Ox O2 Del Method 11/29/23 07:26 73 11/29/23 07:03 36.5 C 67 19 156/77 H 96 Room Air 11/29/23 03:29 36.9 C 77 18 177/79 H 96 Room Air 11/28/23 22:28 83 11/28/23 22:02 36.7 C 76 18 176/95 H 98 Room Air Diagnostic Findings CT scan imaging obtained this morning shows a very large hematoma within the right chest wall. It is approximate 11.5 cm in diameter. Fluid levels noted.
[2023-11-29 13:17] LABS: Hematocrit (blood only) 29.4 % (42.0-52.0); Hemoglobin 10.1 g/dl (14.0-18.0)
--- NOTE | 2023-11-29 13:51 | Hospitalist Progress Note ---
Date of Service November 29, 2023 Assessment & Plan (1) Acute DVT (deep venous thrombosis): (2) Rhabdomyolysis: (3) PO (acute kidney injury): (4) Elevated troponin: (5) Falls: (6) Parkinsons disease: (7) Hypokalemia: (8) Hypophosphatemia: Plan 78-year-old male with past medical history significant for parkinsonism, hypothyroidism, CKD stage III, prostate cancer was brought in because of falls and also found to rhabdomyolysis and PO. Patient seems to be in the hosp ital. Currently living alone. Patient states he ambulates with cane and walker. He is having a lot of tremors and shakiness. Pressure injury seen on right posterior shoulder. And also there is erythema and swelling with the skin tears seen in the right buttocks region. Right upper extremity swollen. As per ER patient fell several times yesterday and apparently hit his head. Seems neighbors brought him back to his house yesterday. And today's afternoon patient noted to be slumped over a barstool in his house. His right arm was hanging over the back of the chair and was leaning to the right. In the ED, he was afebrile, somewhat tachycardic and shaky. Labs showed WBC 21, creatinine 1.6, initial lactic 2.4 and repeat 1.2, total creatinine kinase 31125, troponin 76, procalcitonin 1.8 US LE- 1. Acute nonocclusive DVT in the distal left femoral vein. 2. No right lower extremity DVT. CXR- Patchy bibasilar airspace opacities most pronounced on the right. This is new from the prior study and likely represents a pneumonia. This could be secondary to aspiration. CT shoulder- 1. Diffuse subcutaneous edema. This may represent bland edema or cellulitis. 2. Edematous, swollen biceps and triceps muscles. Finding may represent myositis. 3. No fracture. Scapula appears intact. CT humerus- 1. Diffuse subcutaneous edema, bland edema or cellulitis. 2. Edema and swelling of the biceps and triceps muscles, potentially myositis. 3. Right lower lobe pneumonia. CT forearm- Subcutaneous edema of the right arm. This could reflect cellulitis or generalized anasarca. There is also body wall edema suggesting anasarca. CT C/A/P- 1. No acute traumatic process within the chest, abdomen, or pelvis. 2. A 4 mm indeterminate subpleural nodule within the left lower lobe. Echo with normal LVEF and grade I diastolic dysfunction 11/28 CT Chest: Interval development of a large right breast hematoma measuring up to approximately 11.5 cm with several areas of active extravasation. Additional areas of soft tissue hemorrhage/edema within the right shoulder and back redemonstrated. Aspiration Pneumonia with hypoxia, ?cellulitis RUE- WBC 21->wnl. Procal elevated at 1.8, lactate 2.4->1.2. CXR with RLL PNA. MRSA nare negative. Continue zosyn 11/24, c/w probiotic, blood clx negative so far. Possible cellulitis too per imaging. Sputum clx if able to send. Hypoxia resolved, now on room air. Acute DVT LLE- US shows left Leg proximal non occlusive DVT. Was on heparin drip, held 11/28 due to right breast hematoma noted 11/28. H and H stable lately. Anticoagulation when bleeding risks deemed minimal. [employer] sent for cost analysis per pt request. Rt breast hematoma: Noted 11/[address] chest done for acute right upper chest complained by patient. Heparin drip on hold 11/28. Ortho following, conservative mx for now. Will need anticoagulation resumed once bleeding risk deemed minimal. Anemia, Hemoglobin drop, Vitamin B12 deficiency- Hb dropped from 13.9 to lowest of 9.8, now stable around 10. Noted vit B12 def. Folate and iron stores ok. c/w vit b12 supplement. No GI bleed noted. monitor. follow fobt. if fobt neg, will dc protonix. Rhabdomyolysis due to falls in setting of Parkinsonism- [place] 29109->8000->2855->1716 -->1241. Continue gentle IVF. Will dc batool. Rupture of distal biceps tendon due to fall- ortho following. recommended conservative management and OP follow up in the office in 10-14 days. Not a surgical candidate per ortho. PO on CKD stage III- Resolved. Cr back to baseline. Likely related to rhabdomyolysis. Elevated troponin- likely demand ischemia and rhabdomyolysis. Troponin trend flat. Parkinsonism- Continue home meds. PT OT eval Hypothyroidism- Continue home Synthroid History of prostate cancer s/p surgery Hypokalemia/Hypophosphatemia- monitor and replete. DVT prophylaxis- Heparin on hold. re: rt breast hematoma. Dispo- PT OT recommends rehab. await clinical stability. Time spent- approx 55 mins Admission and Anticipated Discharge Date Admission Date: November 24, 2023 Subjective Patient was seen and examined at bedside. He was lying in bed, on room air, NAD. He reports having severe pain in his right upper chest since night, he underwent CT scan with demonstration of right breast hematoma. His heparin drip was held overnight. He reports eating at his baseline, reports moving bowels okay. Denies any blood in the stool or black stool. Denies nausea, vomiting, fever, chills. Physical Exam Physical Exam: General: Elderly male, lying in bed. not in acute distress HEENT: YENNY, MMM Chest: Fair breath sounds bilaterally CVS: Regular, normal heart sounds Abdomen: Soft, non tender, not distended, normal bowel sounds Neuro: Awake, alert, conversing appropriately. Extremities: RUE w/ iv fluid infiltrations/edema noted. Rt upper chest w/ large swelling noted. no s/s of infection. Barrera with clear urine Results & Data Results & Data Vital Signs (Past 12 Hours) Vital Signs Temp Pulse Pulse Resp BP Pulse Ox O2 Del Method 11/29/23 11:22 36.6 C 69 19 164/76 H 95 Room Air 11/29/23 07:26 73 11/29/23 07:03 36.5 C 67 19 156/77 H 96 Room Air 11/29/23 03:29 36.9 C 77 18 177/79 H 96 Room Air
[2023-11-29] MEDS: ADVANCED PROBIOTIC 625 MG CAPSULE PO SCH (14:15)
--- NOTE | 2023-11-29 23:15 | Communication Note ---
Date of Service: November 29, 2023 Patient stated to RN that " 2 capsules (of Sinemet) i gave him at 2100 will not help his tremors during the night and he says he need three more to hold him over till am... he also states he takes 9 pills a day and his neurologist is aware." Patient's neurologist (Dr. Perez) okay with giving patient 2 additional pills of Sinemet tonight on phone consult.
[2023-11-30] MEDS: CARBIDOPA/LEVODOPA 25/100MG TAB PO STA (03:09)
[2023-11-30 08:43] LABS: Hematocrit (blood only) 25.1 % (42.0-52.0); Hemoglobin 8.4 g/dl (14.0-18.0); Mean Corpuscular Hemoglobin 30.3 pg (25.0-34.0); Mean Corpuscular Hgb Conc 33.5 g/dL (32.0-36.0); Mean Corpuscular Volume 90.6 fL (80.0-100.0); Mean Platelet Volume 9.9 fL (9.4-12.4); Platelet Count 211 K/uL (130-400); RDW Coefficient of Variation 12.5 % (11.5-14.5); RDW Standard Deviation 40.9 fL (36.4-46.3); Red Blood Count 2.77 M/uL (4.70-6.10); White Blood Count 9.37 K/ul (4.8-10.8)
[2023-11-30 08:58] LABS: BUN Creatinine Ratio 9.8 (10-20); Calcium 7.8 mg/dl (8.6-10.3); Creatinine Clr Calc Pharmacy 78.8 ml/min; Est GFR (African American) 98.9 ml/min; Est GFR (Non-African American) 85.3 ml/min; Magnesium 1.6 mg/dl (1.7-2.4); Phosphorus 2.3 mg/dl (2.5-4.9)
--- NOTE | 2023-11-30 12:27 | Orthopedic Progress Note ---
Date of Service November 30, 2023 Assessment & Plan (1) Chest wall hematoma: Plan: The patient was educated regarding today's findings. The chest wall hematoma has decreased in pain. His imaging study results were reviewed with his daughter. He has a known DVT of the lower extremity but no DVT in the right upper extremity on ultrasound from 5 days ago. His persisting swelling and discoloration of the right arm is likely from the biceps tendon rupture. He may also have a rotator cuff injury contributing to his range of motion limitations of the shoulder. This will require further workup once he is more medically stable. He was encouraged to continue with his exercises of the upper and lower extremities. He should be out of bed periodically and is fine to sit in his bedside chair. Continue with PT. His chest wall hematoma appears to have stabilized. Restarting his heparin will be necessary, but the risk will need to be balanced against potentially restarting the chest wall bleeding. He will be reassessed again tomorrow. The patient was seen in conjunction with Dr. Forte, who also evaluated the patient and concurred with today's diagnosis and treatment plan. Admission and Anticipated Discharge Date Admission Date: November 24, 2023 Supervising Physician Co-Signing Physician Notes I, Dr. Forte, saw and examined the patient. I discussed the management with my PA. I reviewed my PAs note and agree with the documented findings and attest to completing the substantive portion of medical decision making and plan of care I developed. Subjective This 78-year-old male is seen today in his room. His daughter is at bedside. He states that the right pectoral area is still swollen and tender, but it is much better than yesterday. He is still having difficulty with movement of the right arm. He is much more coherent today. No new complaints. He states he did not see physical therapy yesterday, but has been doing exercises in his bed. Physical Exam Physical Exam: General: Well-developed, elderly male, in no acute distress. Laying in bed. Alert and oriented. Much more coherent and conversive than yesterday. Skin: Warm and dry with good turgor. No rashes. He has ecchymosis present over his right pectoral muscle and into the right arm. He continues to have edema present in the right arm as well from the hand to the bicep. 1+ pitting edema present in both lower extremities. Overall his skin color looks better than yesterday. Musculoskeletal: The patient has intact motor function of his fingers and wrist. He continues to have weakness and pain with attempted elbow flexion as well as shoulder motion. He has excellent motion of his lower extremities. He is able to do straight leg raises bilaterally. Intact motor function to his knees and ankles. Neurologic: Gross sensation is intact across the upper and lower extremities by soft touch. Sensation to the right hand digits is better than when I saw him yesterday, still diminished. Peripheral pulses are 2+. Results & Data Vital Signs (Past 12 Hours) Vital Signs Temp Pulse Pulse Resp BP Pulse Ox O2 Del Method 11/30/23 11:15 36.6 C 101 H 19 129/73 95 Room Air 11/30/23 07:55 110 H 11/30/23 07:13 36.7 C 88 19 128/75 92 Room Air 11/30/23 03:58 36.8 C 94 H 18 163/74 H 95 Room Air Laboratory Results CBC obtained this morning shows a white count of 9.37. H&H of 8.4 and 25.1. Platelets 211,000. Electrolytes are unremarkable. BUN of 8 with creatinine 0.82. Calcium is slightly low this morning at 7.8. Glucose 124. Magnesium also slightly low at 1.6.
--- NOTE | 2023-11-30 14:24 | Hospitalist Progress Note ---
Date of Service November 30, 2023 Assessment & Plan (1) Acute DVT (deep venous thrombosis): (2) Rhabdomyolysis: (3) PO (acute kidney injury): (4) Elevated troponin: (5) Falls: (6) Parkinsons disease: (7) Hypokalemia: (8) Hypophosphatemia: Plan 78-year-old male with past medical history significant for parkinsonism, hypothyroidism, CKD stage III, prostate cancer was brought in because of falls and also found to rhabdomyolysis and PO. Patient seems to be in the hosp ital. Currently living alone. Patient states he ambulates with cane and walker. He is having a lot of tremors and shakiness. Pressure injury seen on right posterior shoulder. And also there is erythema and swelling with the skin tears seen in the right buttocks region. Right upper extremity swollen. As per ER patient fell several times yesterday and apparently hit his head. Seems neighbors brought him back to his house yesterday. And today's afternoon patient noted to be slumped over a barstool in his house. His right arm was hanging over the back of the chair and was leaning to the right. In the ED, he was afebrile, somewhat tachycardic and shaky. Labs showed WBC 21, creatinine 1.6, initial lactic 2.4 and repeat 1.2, total creatinine kinase 97690, troponin 76, procalcitonin 1.8 US LE- 1. Acute nonocclusive DVT in the distal left femoral vein. 2. No right lower extremity DVT. CXR- Patchy bibasilar airspace opacities most pronounced on the right. This is new from the prior study and likely represents a pneumonia. This could be secondary to aspiration. CT shoulder- 1. Diffuse subcutaneous edema. This may represent bland edema or cellulitis. 2. Edematous, swollen biceps and triceps muscles. Finding may represent myositis. 3. No fracture. Scapula appears intact. CT humerus- 1. Diffuse subcutaneous edema, bland edema or cellulitis. 2. Edema and swelling of the biceps and triceps muscles, potentially myositis. 3. Right lower lobe pneumonia. CT forearm- Subcutaneous edema of the right arm. This could reflect cellulitis or generalized anasarca. There is also body wall edema suggesting anasarca. CT C/A/P- 1. No acute traumatic process within the chest, abdomen, or pelvis. 2. A 4 mm indeterminate subpleural nodule within the left lower lobe. Echo with normal LVEF and grade I diastolic dysfunction 11/28 CT Chest: Interval development of a large right breast hematoma measuring up to approximately 11.5 cm with several areas of active extravasation. Additional areas of soft tissue hemorrhage/edema within the right shoulder and back redemonstrated. Aspiration Pneumonia with hypoxia, ?cellulitis RUE- WBC 21->wnl. Procal elevated at 1.8, lactate 2.4->1.2. CXR with RLL PNA. MRSA nare negative. Continue zosyn 11/24, c/w probiotic, blood clx negative. Possible cellulitis too per imaging. Sputum clx if able to send. Hypoxia resolved, now on room air. Acute DVT LLE- US shows left Leg proximal non occlusive DVT. Was on heparin drip, held 11/28 due to right breast hematoma noted 11/28. H and H stable 8.4 today. Anticoagulation when bleeding risks deemed minimal, Eliquis costs 19.5 dollars a month for the patient. Rt breast hematoma: Noted 11/[address] chest done for acute right upper chest complained by patient. Heparin drip on hold 11/28. Ortho following, conservative mx for now. Will need anticoagulation resumed once bleeding risk deemed minimal. Anemia, Hemoglobin drop, Vitamin B12 deficiency- Hb dropped from 13.9 to lowest of 9.8, now stable around 10. Noted vit B12 def. Folate and iron stores ok. c/w vit b12 supplement. No GI bleed noted. monitor. follow fobt. if fobt neg, will dc protonix. Rhabdomyolysis due to falls in setting of Parkinsonism- CP[place] 25354->8000->2855->1716 -->1241. Continue gentle IVF. Will dc batool. Rupture of distal biceps tendon due to fall- ortho following. recommended conservative management and OP follow up in the office in 10-14 days. Not a surgical candidate per ortho. PO on CKD stage III- Resolved. Cr back to baseline. Likely related to rhabdomyolysis. Elevated troponin- likely demand ischemia and rhabdomyolysis. Troponin trend flat. Parkinsonism- Continue home meds. PT OT eval Hypothyroidism- Continue home Synthroid History of prostate cancer s/p surgery Hypokalemia/Hypophosphatemia- monitor and replete. DVT prophylaxis- Heparin on hold. re: rt breast hematoma. Dispo- PT OT recommends rehab. await clinical stability. Time spent- approx 55 mins Admission and Anticipated Discharge Date Admission Date: November 24, 2023 Subjective Patient was seen and examined at bedside. He was lying in bed, on room air, NAD. He reports better pain control at his right upper chest, he denies other complaints. Reports improving RUE movement. He reports eating at his baseline, reports moving bowels okay. Denies any blood in the stool or black stool. Denies nausea, vomiting, fever, chills. Denies dizziness or palpiations. Physical Exam Physical Exam: General: Elderly male, lying in bed. not in acute distress HEENT: YENNY, MMM Chest: Fair breath sounds bilaterally CVS: Regular, normal heart sounds Abdomen: Soft, non tender, not distended, normal bowel sounds Neuro: Awake, alert, conversing appropriately. Extremities: RUE w/ iv fluid infiltrations/edema noted. Rt upper chest w/ large swelling noted. no s/s of infection. Barrera with clear urine Results & Data Results & Data Vital Signs (Past 12 Hours) Vital Signs Temp Pulse Pulse Resp BP Pulse Ox O2 Del Method 11/30/23 11:15 36.6 C 101 H 19 129/73 95 Room Air 11/30/23 07:55 110 H 11/30/23 07:13 36.7 C 88 19 128/75 92 Room Air 11/30/23 03:58 36.8 C 94 H 18 163/74 H 95 Room Air
[2023-11-30 14:44] LABS: Hematocrit (blood only) 25.7 % (42.0-52.0); Hemoglobin 8.9 g/dl (14.0-18.0)
--- NOTE | 2023-12-01 08:53 | Orthopedic Progress Note ---
Date of Service December 01, 2023 Assessment & Plan (1) Chest wall hematoma: Plan: The chest wall hematoma has decreased in pain, appears stable. Persistent swelling and discoloration of the right arm is likely from the biceps tendon rupture. He has a known DVT of the lower extremity but no DVT in the right upper extremity on ultrasound from 6 days ago. May also have a rotator cuff injury contributing to his range of motion limitations of the shoulder. This may require further workup once he is more medically stable. The patient was educated regarding today's findings. Encouraged to continue with his exercises of the upper and lower extremities. OOB to chair. Continue with PT. Continue care per primary service. Will continue to follow. Admission and Anticipated Discharge Date Admission Date: November 24, 2023 Subjective Feeling a bit better, but feeling weak Physical Exam Physical Exam: General: Well-developed, elderly male, in no acute distress. Laying in bed. Alert and oriented. Skin: Warm and dry with good turgor. No rashes. He has ecchymosis present over his right pectoral muscle and into the right arm. He continues to have edema present in the right arm as well from the hand to the biceps. 1+ pitting edema present in both lower extremities, slightly improved. Musculoskeletal: He continues to have weakness and pain with attempted elbow flexion as well as shoulder motion, but improved from yesterday. No pain with gentle ROM of the shoulder or elbow. He has excellent motion of his lower extremities. He is able to do straight leg raises bilaterally. Intact motor function to his knees and ankles. Neurologic: 2+ Radial pulse. Sensation to light touch improved from yesterday. Motor to median, radial, ulnar, AIN, PIN, and musculocutaneous nerves intact. Results & Data Vital Signs (Past 12 Hours) Vital Signs Temp Pulse Pulse Resp BP Pulse Ox Pulse Ox 12/01/23 07:30 88 12/01/23 07:17 36.6 C 80 19 121/71 95 12/01/23 02:44 36.8 C 84 18 148/72 H 94 11/30/23 23:00 94 11/30/23 22:49 36.5 C 89 18 130/68 94 O2 Del Method O2 Del Method 12/01/23 07:30 12/01/23 07:17 Room Air 12/01/23 02:44 Room Air 11/30/23 23:00 Room Air 11/30/23 22:49 Room Air Laboratory Results 11/30/23 11/30/23 Range/Units 14:31 08:24 Hgb 8.9 L (14.0-18.0) g/dl Hct 25.7 L (42.0-52.0) % Sodium 134 L (136-145) mmol/L Potassium 4.0 (3.5-5.1) mmol/L Chloride 107 (98-107) mmol/L Carbon Dioxide 23 (21-32) mmol/L Anion Gap 4 (3-11) BUN 8 (6-23) mg/dl Creatinine 0.82 (0.6-1.4) mg/dl Est Cr Clr Drug Dosing 78.8 ml/min Est GFR ( Amer) 98.9 ml/min Est GFR (Non-Af Amer) 85.3 ml/min BUN/Creatinine Ratio 9.8 L (10-20) Glucose 124 H (70-99(Fasting)) mg/dl Calcium 7.8 L (8.6-10.3) mg/dl Phosphorus 2.3 L (2.5-4.9) mg/dl Magnesium 1.6 L (1.7-2.4) mg/dl
[2023-12-01 09:39] LABS: BUN Creatinine Ratio 9.1 (10-20); Calcium 7.6 mg/dl (8.6-10.3); Creatinine Clr Calc Pharmacy 72.9 ml/min; Est GFR (Non-African American) 82.9 ml/min; Magnesium 1.7 mg/dl (1.7-2.4); Phosphorus 1.9 mg/dl (2.5-4.9); Potassium 4.2 mmol/L (3.5-5.1)
[2023-12-01 09:58] LABS: Hematocrit (blood only) 25.8 % (42.0-52.0); Hemoglobin 8.4 g/dl (14.0-18.0); Mean Corpuscular Hemoglobin 30.7 pg (25.0-34.0); Mean Corpuscular Hgb Conc 32.6 g/dL (32.0-36.0); Mean Corpuscular Volume 94.2 fL (80.0-100.0); Mean Platelet Volume 10.8 fL (9.4-12.4); Platelet Count 174 K/uL (130-400); RDW Coefficient of Variation 12.9 % (11.5-14.5); RDW Standard Deviation 43.5 fL (36.4-46.3); Red Blood Count 2.74 M/uL (4.70-6.10); White Blood Count 8.74 K/ul (4.8-10.8)
--- NOTE | 2023-12-01 15:01 | Hospitalist Progress Note ---
Date of Service December 01, 2023 Assessment & Plan (1) Acute DVT (deep venous thrombosis): (2) Rhabdomyolysis: (3) PO (acute kidney injury): (4) Elevated troponin: (5) Falls: (6) Parkinsons disease: (7) Hypokalemia: (8) Hypophosphatemia: Plan 78-year-old male with past medical history significant for parkinsonism, hypothyroidism, CKD stage III, prostate cancer was brought in because of falls and also found to rhabdomyolysis and PO. Patient seems to be in the hosp ital. Currently living alone. Patient states he ambulates with cane and walker. He is having a lot of tremors and shakiness. Pressure injury seen on right posterior shoulder. And also there is erythema and swelling with the skin tears seen in the right buttocks region. Right upper extremity swollen. As per ER patient fell several times yesterday and apparently hit his head. Seems neighbors brought him back to his house yesterday. And today's afternoon patient noted to be slumped over a barstool in his house. His right arm was hanging over the back of the chair and was leaning to the right. In the ED, he was afebrile, somewhat tachycardic and shaky. Labs showed WBC 21, creatinine 1.6, initial lactic 2.4 and repeat 1.2, total creatinine kinase 93680, troponin 76, procalcitonin 1.8 US LE- 1. Acute nonocclusive DVT in the distal left femoral vein. 2. No right lower extremity DVT. CXR- Patchy bibasilar airspace opacities most pronounced on the right. This is new from the prior study and likely represents a pneumonia. This could be secondary to aspiration. CT shoulder- 1. Diffuse subcutaneous edema. This may represent bland edema or cellulitis. 2. Edematous, swollen biceps and triceps muscles. Finding may represent myositis. 3. No fracture. Scapula appears intact. CT humerus- 1. Diffuse subcutaneous edema, bland edema or cellulitis. 2. Edema and swelling of the biceps and triceps muscles, potentially myositis. 3. Right lower lobe pneumonia. CT forearm- Subcutaneous edema of the right arm. This could reflect cellulitis or generalized anasarca. There is also body wall edema suggesting anasarca. CT C/A/P- 1. No acute traumatic process within the chest, abdomen, or pelvis. 2. A 4 mm indeterminate subpleural nodule within the left lower lobe. Echo with normal LVEF and grade I diastolic dysfunction 11/28 CT Chest: Interval development of a large right breast hematoma measuring up to approximately 11.5 cm with several areas of active extravasation. Additional areas of soft tissue hemorrhage/edema within the right shoulder and back redemonstrated. Aspiration Pneumonia with hypoxia, ?cellulitis RUE- WBC 21->wnl. Procal elevated at 1.8, lactate 2.4->1.2. CXR with RLL PNA. MRSA nare negative. Continue zosyn 11/24, c/w probiotic, blood clx negative. Possible cellulitis too per imaging. Sputum clx if able to send. Hypoxia resolved, now on room air. Acute DVT LLE- US shows left Leg proximal non occlusive DVT. Was on heparin drip, held 11/28 due to right breast hematoma noted 11/28. H and H stable 8.4 today. Anticoagulation when bleeding risks deemed minimal, Eliquis costs 19.5 dollars a month for the patient. Rt breast hematoma: Noted 11/[address] chest done for acute right upper chest complained by patient. Heparin drip on hold 11/28. Ortho following, conservative mx for now. Will need anticoagulation resumed once bleeding risk deemed minimal, will d/w ortho if HnH remains stable by batool AM. Anemia, Hemoglobin drop, Vitamin B12 deficiency- HnH drop as above. Noted vit B12 def. Folate and iron stores ok. c/w Vit b12 supplement. No GI bleed noted. monitor. follow fobt. if fobt neg, will dc protonix. Rhabdomyolysis due to falls in setting of Parkinsonism- CPK 70191->8000->2855->1716 -->1241. s/p IVF. Rupture of distal biceps tendon due to fall- ortho following. recommended conservative management and OP follow up in the office in 10-14 days. Not a surgical candidate per ortho. PO on CKD stage III- Resolved. Cr back to baseline. Likely related to rhabdomyolysis. Elevated troponin- likely demand ischemia and rhabdomyolysis. Troponin trend flat. Parkinsonism- Continue home meds. PT OT eval Hypothyroidism- Continue home Synthroid History of prostate cancer s/p surgery Hypokalemia/Hypophosphatemia- monitor and replete. DVT prophylaxis- Heparin on hold. re: rt breast hematoma. Dispo- PT OT recommends rehab. await clinical stability. Time spent- approx 50 mins Admission and Anticipated Discharge Date Admission Date: November 24, 2023 Subjective Patient was seen and examined at bedside. He was lying in bed, on room air, NAD. He reports better pain control at his right upper chest and RUE, he denies other complaints. Reports improving RUE movement. He reports eating at his baseline, reports moving bowels okay. Denies any blood in the stool or black stool. Denies nausea, vomiting, fever, chills. Denies dizziness or palpitations. Physical Exam Physical Exam: General: Elderly male, lying in bed. not in acute distress HEENT: YENNY, MMM Chest: Fair breath sounds bilaterally CVS: Regular, normal heart sounds Abdomen: Soft, non tender, not distended, normal bowel sounds Neuro: Awake, alert, conversing appropriately. Extremities: RUE w/ iv fluid infiltrations/edema noted. Rt upper chest w/ large swelling noted. no s/s of infection. Barrera with clear urine Results & Data Results & Data Vital Signs (Past 12 Hours) Vital Signs Temp Pulse Pulse Resp BP Pulse Ox O2 Del Method 12/01/23 14:28 82 12/01/23 11:47 36.3 C L 81 19 120/69 96 Room Air 12/01/23 07:30 88 12/01/23 07:17 36.6 C 80 19 121/71 95 Room Air
[2023-12-01] MEDS: LACTULOSE SYRUP 20 GM/30 ML UDC PO ONE (15:40)
[2023-12-01] MEDS: POT PHOSPHATE MONOBASIC W/ SOD TAB PO SCH (16:27)
[2023-12-02 07:46] LABS: Hematocrit (blood only) 23.2 % (42.0-52.0); Hemoglobin 7.6 g/dl (14.0-18.0); Mean Corpuscular Hemoglobin 30.8 pg (25.0-34.0); Mean Corpuscular Hgb Conc 32.8 g/dL (32.0-36.0); Mean Corpuscular Volume 93.9 fL (80.0-100.0); Mean Platelet Volume 9.5 fL (9.4-12.4); Platelet Count 303 K/uL (130-400); RDW Coefficient of Variation 13.2 % (11.5-14.5); RDW Standard Deviation 43.1 fL (36.4-46.3); Red Blood Count 2.47 M/uL (4.70-6.10); White Blood Count 7.92 K/ul (4.8-10.8)
[2023-12-02 08:18] LABS: BUN Creatinine Ratio 9.1 (10-20); Calcium 7.6 mg/dl (8.6-10.3); Creatinine Clr Calc Pharmacy 72.9 ml/min; Est GFR (Non-African American) 82.9 ml/min; Magnesium 1.8 mg/dl (1.7-2.4); Phosphorus 2.8 mg/dl (2.5-4.9); Potassium 4.7 mmol/L (3.5-5.1)
--- NOTE | 2023-12-02 09:42 | Orthopedic Progress Note ---
Date of Service December 02, 2023 Assessment & Plan (1) Chest wall hematoma: Plan: The chest wall hematoma has decreased in pain, appears stable. Persistent swelling and discoloration of the right arm is likely from the biceps tendon rupture. He has a known DVT of the lower extremity but no DVT in the right upper extremity on ultrasound from 6 days ago. May also have a rotator cuff injury contributing to his range of motion limitations of the shoulder. This may require further workup once he is more medically stable. The patient was educated regarding today's findings. Encouraged to continue with his exercises of the upper and lower extremities. OOB to chair. Continue with PT. Continue care per primary service. Ice and elevation for swelling control May use right upper extremity as tolerated for light daily activities. Dr. Forte present for today's visit. Will continue to follow while inpatient. Admission and Anticipated Discharge Date Admission Date: November 24, 2023 Supervising Physician Co-Signing Physician Notes I, Dr. Forte, saw and examined the patient. I discussed the management with my PA. I reviewed my PAs note and agree with the documented findings and attest to completing the substantive portion of medical decision making and plan of care I developed. Subjective Patient was seen at his bedside. Dr. Forte present for today's visit. Patient states that overall he is doing significantly better. He is starting to get improved feeling in the thumb and index finger although they are still tingly. He has been using his hand a lot more. He has been trying to do the range of motion exercises. He states it still is very painful but he is able to do it more today. He has been trying to use his right arm for light daily activities. Physical Exam Musculoskeletal: Exam of his right upper extremity: His hand forearm upper arm and anterior chest wall is edematous. No significant bruising in the right upper extremity. He does have a palpable hematoma in the anterior chest wall which is soft and mildly tender to palpation. There is no warmth, erythema or evidence of skin damage. There is no blistering of the right upper extremity or anterior chest wall. He has a palpable distal radius pulse. Paresthesias in the tips of his thumb index and middle finger approximately 30%, states improving. Normal sensation throughout the small finger. He is able to extend his fingers and wiggle them comfortably. He tolerates gentle active motion of the wrist and elbow. He is able to lift his arm to about 90 degrees today at the shoulder. Results & Data Vital Signs (Past 12 Hours) Vital Signs Temp Pulse Resp BP Pulse Ox Pulse Ox O2 Del Method 12/02/23 08:48 36.6 C 86 19 124/74 94 Room Air 12/02/23 03:50 36.6 C 80 16 122/66 93 Room Air 12/01/23 23:00 93 12/01/23 22:55 36.8 C 91 H 16 131/72 93 Room Air O2 Del Method 12/02/23 08:48 12/02/23 03:50 12/01/23 23:00 Room Air 12/01/23 22:55
--- NOTE | 2023-12-02 10:36 | Ultrasound Report ---
US softtissue chstwall/uprback CLINICAL HISTORY: fu on hematoma size. hb dropping. COMPARISON STUDY: Chest CT 11/29/2023. FINDINGS: Real-time sonographic imaging of the right anterior chest wall was performed with represent ative images submitted. There is again noted a right chest wall deep complex fluid collection measuri ng approximately 14.0 x 11.1 x 4.1 cm. No associated color flow within this complex fluid collection. IMPRESSION: Stable to slight increase in size in the large right anterior chest wall fluid collectio n which measures 14.0 x 11.1 x 4.1 cm. This favors a hematoma. ACT 112: Negative or not required by law. Electronically signed by: Slim Ordoñez M.D. 12/02/2023 10:34 AM
[2023-12-02] MEDS: LACTULOSE SYRUP 20 GM/30 ML UDC PO ONE (11:10)
[2023-12-02 13:09] LABS: Hematocrit (blood only) 23.7 % (42.0-52.0); Hemoglobin 7.7 g/dl (14.0-18.0)
--- NOTE | 2023-12-02 14:58 | Hospitalist Progress Note ---
Date of Service December 02, 2023 Assessment & Plan (1) Acute DVT (deep venous thrombosis): (2) Rhabdomyolysis: (3) PO (acute kidney injury): (4) Elevated troponin: (5) Falls: (6) Parkinsons disease: (7) Hypokalemia: (8) Hypophosphatemia: Plan 78-year-old male with past medical history significant for parkinsonism, hypothyroidism, CKD stage III, prostate cancer was brought in because of falls and also found to rhabdomyolysis and PO. Patient seems to be in the hosp ital. Currently living alone. Patient states he ambulates with cane and walker. He is having a lot of tremors and shakiness. Pressure injury seen on right posterior shoulder. And also there is erythema and swelling with the skin tears seen in the right buttocks region. Right upper extremity swollen. As per ER patient fell several times yesterday and apparently hit his head. Seems neighbors brought him back to his house yesterday. And today's afternoon patient noted to be slumped over a barstool in his house. His right arm was hanging over the back of the chair and was leaning to the right. In the ED, he was afebrile, somewhat tachycardic and shaky. Labs showed WBC 21, creatinine 1.6, initial lactic 2.4 and repeat 1.2, total creatinine kinase 28688, troponin 76, procalcitonin 1.8 US LE- 1. Acute nonocclusive DVT in the distal left femoral vein. 2. No right lower extremity DVT. CXR- Patchy bibasilar airspace opacities most pronounced on the right. This is new from the prior study and likely represents a pneumonia. This could be secondary to aspiration. CT shoulder- 1. Diffuse subcutaneous edema. This may represent bland edema or cellulitis. 2. Edematous, swollen biceps and triceps muscles. Finding may represent myositis. 3. No fracture. Scapula appears intact. CT humerus- 1. Diffuse subcutaneous edema, bland edema or cellulitis. 2. Edema and swelling of the biceps and triceps muscles, potentially myositis. 3. Right lower lobe pneumonia. CT forearm- Subcutaneous edema of the right arm. This could reflect cellulitis or generalized anasarca. There is also body wall edema suggesting anasarca. CT C/A/P- 1. No acute traumatic process within the chest, abdomen, or pelvis. 2. A 4 mm indeterminate subpleural nodule within the left lower lobe. Echo with normal LVEF and grade I diastolic dysfunction 11/28 CT Chest: Interval development of a large right breast hematoma measuring up to approximately 11.5 cm with several areas of active extravasation. Additional areas of soft tissue hemorrhage/edema within the right shoulder and back redemonstrated. Aspiration Pneumonia with hypoxia, ?cellulitis RUE- WBC 21->wnl. Procal elevated at 1.8, lactate 2.4->1.2. CXR with RLL PNA. MRSA nare negative. s/p antibiotic course, c/w probiotic, blood clx negative. Possible cellulitis too per imaging. Hypoxia resolved, now on room air. Acute DVT LLE- US shows left Leg proximal non occlusive DVT. Was on heparin drip, held 11/28 due to right breast hematoma noted 11/28. H and H downtrending slowly. Anticoagulation when bleeding risks deemed minimal, Eliquis costs 19.5 dollars a month for the patient. Rt breast US 12/01 w/ slight increase in size of hematoma. Rt breast hematoma: Noted 11/[address] chest done for acute right upper chest complained by patient. Heparin drip on hold 11/28. Ortho following, conservative mx for now. Will need anticoagulation resumed once bleeding risk deemed minimal, Rt br hematoma size slightly increased, hb drop. Will follow ortho recs. Anemia, Hemoglobin drop, Vitamin B12 deficiency- HnH drop as above. Noted vit B12 def. Folate and iron stores ok. c/w Vit b12 supplement. No GI bleed noted. monitor. follow fobt. if fobt neg, will dc protonix. Rhabdomyolysis due to falls in setting of Parkinsonism- CPK 29783->8000->2855->1716 -->1241. s/p IVF. Rupture of distal biceps tendon due to fall- ortho following. recommended conservative management and OP follow up in the office in 10-14 days. Not a surgical candidate per ortho. PO on CKD stage III- Resolved. Cr back to baseline. Likely related to rhabdomyolysis. Elevated troponin- likely demand ischemia and rhabdomyolysis. Troponin trend flat. Parkinsonism- Continue home meds. PT OT eval Hypothyroidism- Continue home Synthroid History of prostate cancer s/p surgery Hypokalemia/Hypophosphatemia- monitor and replete. DVT prophylaxis- Heparin on hold. re: rt breast hematoma. Dispo- PT OT recommends rehab. await clinical stability. Time spent- approx 48 mins Admission and Anticipated Discharge Date Admission Date: November 24, 2023 Subjective Patient was seen and examined at bedside. He was sitting up in chair, on room air, NAD. He reports better pain control at his right upper chest and RUE, he denies other complaints. Reports improving RUE movement. He reports eating at his baseline, reports bm 5 d ago, additional dose of lactulose today. Denies nausea, vomiting, fever, chills. Denies dizziness or palpitations. Physical Exam Physical Exam: General: Elderly male, not in acute distress HEENT: YENNY, MMM Chest: Fair breath sounds bilaterally CVS: Regular, normal heart sounds Abdomen: Soft, non tender, not distended, normal bowel sounds Neuro: Awake, alert, conversing appropriately. Extremities: RUE w/ iv fluid infiltrations/edema noted. Rt upper chest w/ large swelling noted. no s/s of infection. Barrera with clear urine Results & Data Results & Data Vital Signs (Past 12 Hours) Vital Signs Temp Pulse Resp BP Pulse Ox O2 Del Method 12/02/23 10:50 36.7 C 90 19 132/70 92 Room Air 12/02/23 08:48 36.6 C 86 19 124/74 94 Room Air 12/02/23 03:50 36.6 C 80 16 122/66 93 Room Air
[2023-12-02] MEDS: PANTOprazole 40 MG TAB PO SCH (21:05)
[2023-12-03 06:20] LABS: Hematocrit (blood only) 24.1 % (42.0-52.0); Mean Corpuscular Hemoglobin 31.3 pg (25.0-34.0); Mean Corpuscular Hgb Conc 33.2 g/dL (32.0-36.0); Mean Corpuscular Volume 94.1 fL (80.0-100.0); Mean Platelet Volume 9.2 fL (9.4-12.4); Platelet Count 376 K/uL (130-400); RDW Coefficient of Variation 13.6 % (11.5-14.5); RDW Standard Deviation 42.7 fL (36.4-46.3); Red Blood Count 2.56 M/uL (4.70-6.10); White Blood Count 9.62 K/ul (4.8-10.8)
[2023-12-03 06:29] LABS: Magnesium 1.9 mg/dl (1.7-2.4)
[2023-12-03] MEDS: LACTULOSE SYRUP 20 GM/30 ML UDC PO PRN (10:57)
--- NOTE | 2023-12-03 13:53 | Orthopedic Progress Note ---
Date of Service December 03, 2023 Assessment & Plan (1) Chest wall hematoma: Plan: The patient was educated regarding today's findings. He is significantly improved since yesterday. Importance of continuing range of motion of the upper extremity was discussed. His anticoagulant will need to be restarted. To minimize the risk of additional hematoma formation in his chest wall, the patient was placed in a compression wrap and shoulder spica wrap using Rudy wrap 's. This remained in should remain in place at all times other than bathing. Care was taken to make sure it was not restricting his breathing. He may continue with cold compresses on the chest wall and arm as needed for discomfort. Continue with PT. Follow-up in the office after discharge. At this point, from an orthopedic standpoint he is stable for discharge. He is aware that any further discharge planning will be based on his medical condition. Admission and Anticipated Discharge Date Admission Date: November 24, 2023 Supervising Physician Co-Signing Physician Notes I, Dr. Forte, saw and examined the patient. I discussed the management with my PA. I reviewed my PAs note and agree with the documented findings and attest to completing the substantive portion of medical decision making and plan of care I developed. Subjective This 78-year-old male is seen today in his room. He states he is feeling better than he has in several days. He states that the swelling in his extremities has improved. He feels stronger. He was able to participate in physical therapy today and was ambulating in the halls with assistance. He is wondering when he might be discharged. Physical Exam Physical Exam: General: Well-developed, well-nourished, elderly male, in no acute distress. Laying in bed. Alert and oriented. Conversive. Skin: Warm and dry with good turgor. No rashes. The ecchymosis on his right chest wall has almost entirely resolved. He still has some very slight discoloration of the right arm. The edema in the hand has improved significantly since I saw him last. The edema in his lower extremities has also improved significantly since I last saw him. He continues to have some edema present in the right forearm, elbow, and upper arm. Musculoskeletal: Evaluation of the right arm reveals good range of motion of his digits, wrist, elbow, and shoulder. He has full flexion and extension of the elbow under active contraction. Full range of motion of his digits. Limited range of motion of the shoulder secondary to weakness and discomfort. Passively I can move him quite well without much discomfort. He has no further pain with palpation over the rotator cuff musculature posteriorly. No pain with palpation over the glenohumeral joint, bicep, elbow, forearm, or hand. No discomfort with palpation over the pectoral muscle. He did does complain of some minor discomfort on the lateral right breast. Chest hematoma has become soft and nontender. Neurologic: Gross sensation is intact across the right arm by soft touch. Peripheral pulses are 2+. Sensation is also intact across the lower extremities. He does note a burning sensation in his feet consistent with his peripheral neuropathy. He also states that his heel is "burning". There is no evidence of skin breakdown or ulceration. Results & Data Vital Signs (Past 12 Hours) Vital Signs Temp Pulse Pulse Resp BP BP Pulse Ox 12/03/23 12:20 36.7 C 77 19 116/69 94 12/03/23 07:21 36.5 C 85 17 129/67 95 12/03/23 03:29 36.6 C 83 16 155/79 H 96 O2 Del Method 12/03/23 12:20 Room Air 12/03/23 07:21 Room Air 12/03/23 03:29 Room Air Laboratory Results CBC obtained this morning shows a white count of 9.62. H&H of 8.0 and 24.1. Platelets normal at 376,000. Magnesium normal today at 1.9.
--- NOTE | 2023-12-03 15:22 | Hospitalist Progress Note ---
Date of Service December 03, 2023 Assessment & Plan (1) Acute DVT (deep venous thrombosis): (2) Rhabdomyolysis: (3) PO (acute kidney injury): (4) Elevated troponin: (5) Falls: (6) Parkinsons disease: (7) Hypokalemia: (8) Hypophosphatemia: Plan 78-year-old male with past medical history significant for parkinsonism, hypothyroidism, CKD stage III, prostate cancer was brought in because of falls and also found to rhabdomyolysis and PO. Patient seems to be in the hosp ital. Currently living alone. Patient states he ambulates with cane and walker. He is having a lot of tremors and shakiness. Pressure injury seen on right posterior shoulder. And also there is erythema and swelling with the skin tears seen in the right buttocks region. Right upper extremity swollen. As per ER patient fell several times yesterday and apparently hit his head. Seems neighbors brought him back to his house yesterday. And today's afternoon patient noted to be slumped over a barstool in his house. His right arm was hanging over the back of the chair and was leaning to the right. In the ED, he was afebrile, somewhat tachycardic and shaky. Labs showed WBC 21, creatinine 1.6, initial lactic 2.4 and repeat 1.2, total creatinine kinase 86389, troponin 76, procalcitonin 1.8 US LE- 1. Acute nonocclusive DVT in the distal left femoral vein. 2. No right lower extremity DVT. CXR- Patchy bibasilar airspace opacities most pronounced on the right. This is new from the prior study and likely represents a pneumonia. This could be secondary to aspiration. CT shoulder- 1. Diffuse subcutaneous edema. This may represent bland edema or cellulitis. 2. Edematous, swollen biceps and triceps muscles. Finding may represent myositis. 3. No fracture. Scapula appears intact. CT humerus- 1. Diffuse subcutaneous edema, bland edema or cellulitis. 2. Edema and swelling of the biceps and triceps muscles, potentially myositis. 3. Right lower lobe pneumonia. CT forearm- Subcutaneous edema of the right arm. This could reflect cellulitis or generalized anasarca. There is also body wall edema suggesting anasarca. CT C/A/P- 1. No acute traumatic process within the chest, abdomen, or pelvis. 2. A 4 mm indeterminate subpleural nodule within the left lower lobe. Echo with normal LVEF and grade I diastolic dysfunction 11/28 CT Chest: Interval development of a large right breast hematoma measuring up to approximately 11.5 cm with several areas of active extravasation. Additional areas of soft tissue hemorrhage/edema within the right shoulder and back redemonstrated. Aspiration Pneumonia with hypoxia, ?cellulitis RUE- WBC 21->wnl. Procal elevated at 1.8, lactate 2.4->1.2. CXR with RLL PNA. MRSA nare negative. s/p antibiotic course, c/w probiotic, blood clx negative. Possible cellulitis too per imaging. Hypoxia resolved, now on room air. Acute DVT LLE- US shows left Leg proximal non occlusive DVT. Was on heparin drip, held 11/28 due to right breast hematoma noted 11/28, Rt breast US 12/01 w/ slight increase in size of hematoma. ---> discussed with Ortho 12/02, resuming anticoagulation, monitor H&H closely. Eliquis costs 19.5 dollars a month for the patient. Rt breast hematoma: Noted 11/[address] chest done for acute right upper chest complained by patient. Heparin drip on hold 11/28. Ortho following, conservative mx for now. Compressive CHARLES bandage around the chest. Anemia, Hemoglobin drop, Vitamin B12 deficiency- HnH drop as above. Noted vit B12 def. Folate and iron stores ok. c/w Vit b12 supplement. No GI bleed noted. monitor. follow fobt. if fobt neg, will dc protonix. Rhabdomyolysis due to falls in setting of Parkinsonism- CPK 39050->8000->2855->1716 -->1241. s/p IVF. Rupture of distal biceps tendon due to fall- ortho following. recommended conservative management and OP follow up in the office in 10-14 days. Not a surgical candidate per ortho. PO on CKD stage III- Resolved. Cr back to baseline. Likely related to rh abdomyolysis. Elevated troponin- likely demand ischemia and rhabdomyolysis. Troponin trend flat. Parkinsonism- Continue home meds. PT OT eval Hypothyroidism- Continue home Synthroid History of prostate cancer s/p surgery Hypokalemia/Hypophosphatemia- monitor and replete. DVT prophylaxis- Heparin drip Dispo- PT OT recommends rehab. await clinical stability. Time spent- approx 53 mins Admission and Anticipated Discharge Date Admission Date: November 24, 2023 Subjective Patient was seen and examined at bedside. He was Lying in bed, on room air, NAD. He reports better pain control at his right upper chest and RUE, he denies other complaints. Reports improving RUE movement and swelling and is happy. He reports eating at his baseline, reports bm 6 d ago, additional dose of lactulose today. Denies nausea, vomiting, fever, chills. Denies dizziness or palpitations. Patient agreeable to take MiraLAX today. Will follow. Patient is moving gas, denies abdominal pain. Abdomen is nondistended on exam. Physical Exam Physical Exam: General: Elderly male, not in acute distress HEENT: ANKITA RAMON Chest: Fair breath sounds bilaterally CVS: Regular, normal heart sounds Abdomen: Soft, non tender, not distended, normal bowel sounds Neuro: Awake, alert, conversing appropriately. Extremities: RUE w/ iv fluid infiltrations/edema noted -- Improving. Rt upper chest w/ large swelling noted -- stable. no s/s of infection. Barrera with clear urine Results & Data Results & Data Vital Signs (Past 12 Hours) Vital Signs Temp Pulse Pulse Pulse Resp BP BP 12/03/23 14:51 101 H 12/03/23 14:49 76 12/03/23 12:20 36.7 C 77 19 116/69 12/03/23 07:21 36.5 C 85 17 129/67 12/03/23 03:29 36.6 C 83 16 155/79 H Pulse Ox O2 Del Method 12/03/23 14:51 12/03/23 14:49 12/03/23 12:20 94 Room Air 12/03/23 07:21 95 Room Air 12/03/23 03:29 96 Room Air
[2023-12-03 15:45] LABS: Partial Thromboplastin Ratio 0.9; Partial Thromboplastin Time 25 Seconds (21-31); Prothrombin Time 10.4 Seconds (9.0-12.0)
[2023-12-03] MEDS: HEPARIN SODIUM/DEXTROSE 25,000 UNITS/500 ML BAG IV SCH (16:34)
[2023-12-03] MEDS: Heparin IV Adult Wt-Based Low-Dose *NO* INITIAL Bolus Protocol IV STA (17:04)
[2023-12-03 23:14] LABS: Hematocrit (blood only) 22.9 % (42.0-52.0); Hemoglobin 7.8 g/dl (14.0-18.0)
[2023-12-04] MEDS: HEPARIN SOD (PORCINE) 1000 UNIT/ML IV ONE (00:37)
[2023-12-04 06:33] LABS: Hematocrit (blood only) 25.4 % (42.0-52.0); Hemoglobin 8.2 g/dl (14.0-18.0); Mean Corpuscular Hemoglobin 30.3 pg (25.0-34.0); Mean Corpuscular Hgb Conc 32.3 g/dL (32.0-36.0); Mean Corpuscular Volume 93.7 fL (80.0-100.0); Mean Platelet Volume 8.9 fL (9.4-12.4); Platelet Count 436 K/uL (130-400); RDW Coefficient of Variation 14.4 % (11.5-14.5); RDW Standard Deviation 44.4 fL (36.4-46.3); Red Blood Count 2.71 M/uL (4.70-6.10); White Blood Count 11.63 K/ul (4.8-10.8)
[2023-12-04 06:54] LABS: BUN Creatinine Ratio 11.1 (10-20); Calcium 7.7 mg/dl (8.6-10.3); Creatinine Clr Calc Pharmacy 66.1 ml/min; Est GFR (African American) 95.1 ml/min; Est GFR (Non-African American) 82.1 ml/min; Magnesium 1.9 mg/dl (1.7-2.4); Phosphorus 2.9 mg/dl (2.5-4.9); Potassium 4.1 mmol/L (3.5-5.1)
[2023-12-04 07:09] LABS: ANTI-Xa, UFH(UnfractionatedHep 0.32 IU/ml (0.3-0.7)
--- NOTE | 2023-12-04 16:28 | Hospitalist Progress Note ---
Date of Service December 04, 2023 Assessment & Plan (1) Acute DVT (deep venous thrombosis): (2) Rhabdomyolysis: (3) PO (acute kidney injury): (4) Elevated troponin: (5) Falls: (6) Parkinsons disease: (7) Hypokalemia: (8) Hypophosphatemia: Plan 78-year-old male with past medical history significant for parkinsonism, hypothyroidism, CKD stage III, prostate cancer was brought in because of falls and also found to rhabdomyolysis and PO. Currently living alone. Patient stated he ambulates with cane and walker [employer] though he is having a lot of tremors and shakiness. On presentation, pressure injury was noted on right posterior shoulder, erythema and swelling with the skin tears seen in the right buttocks region and Right upper extremity swollen. As per ER patient fell several times the day prior to presentation and apparently hit his head. Seems neighbors brought him back to his house then. And on the afternoon of presentation, patient was noted to be slumped over a barstool in his house. His right arm was hanging over the back of the chair and was leaning to the right. In the ED, he was afebrile, somewhat tachycardic and shaky. Labs showed WBC 21, creatinine 1.6, initial lactic 2.4 and repeat 1.2, total creatinine kinase 31175, troponin 76, procalcitonin 1.8 US LE- 1. Acute nonocclusive DVT in the distal left femoral vein. 2. No right lower extremity DVT. CXR- Patchy bibasilar airspace opacities most pronounced on the right. This is new from the prior study and likely represents a pneumonia. This could be secondary to aspiration. CT shoulder- 1. Diffuse subcutaneous edema. This may represent bland edema or cellulitis. 2. Edematous, swollen biceps and triceps muscles. Finding may represent myositis. 3. No fracture. Scapula appears intact. CT humerus- 1. Diffuse subcutaneous edema, bland edema or cellulitis. 2. Edema and swelling of the biceps and triceps muscles, potentially myositis. 3. Right lower lobe pneumonia. CT forearm- Subcutaneous edema of the right arm. This could reflect cellulitis or generalized anasarca. There is also body wall edema suggesting anasarca. CT C/A/P- 1. No acute traumatic process within the chest, abdomen, or pelvis. 2. A 4 mm indeterminate subpleural nodule within the left lower lobe. Echo with normal LVEF and grade I diastolic dysfunction 11/28 CT Chest: Interval development of a large right breast hematoma measuring up to approximately 11.5 cm with several areas of active extravasation. Additional areas of soft tissue hemorrhage/edema within the right shoulder and back redemonstrated. Aspiration Pneumonia with hypoxia, ?cellulitis RUE WBC 21->wnl. Procal elevated at 1.8, lactate 2.4->1.2. CXR with RLL PNA. MRSA nare negative. Blood culture negative Completed antibiotic course, c/w probiotic, blood clx negative. Hypoxia resolved. Now on room air Acute DVT LLE- Rt breast hematoma: US showed left Leg proximal non occlusive DVT. Was initially on heparin drip. This was held on 11/29/23 due to right breast hematoma noted that day Rt breast US 12/01 w/ slight increase in size of hematoma. Continue compressive wrap per Ortho Heparin drip resumed on 12/03/[address] Anticoagulation specialist Dr Moreno today. She recommends continuing heparin drip and monitoring for 48hr from resumption and then transitioning to therapeutic eliquis if remains stable Anemia, Hemoglobin drop, Vitamin B12 deficiency Hb drop likely from hematoma Noted vit B12 def. Folate and iron stores ok. Continue with Vit B12 Rupture of distal biceps tendon due to fall- Ortho recs noted Continue conservative management and outpatient f/u with ortho in 10-14 days. No surgical treatment at this time Rhabdomyolysis due to falls in setting of Parkinsonism- CPK 19469->8000->2855->1716 -->1241. Managed with IVF PO on CKD stage III- Cr was 1.68 on presentation PO resolved. Cr back to baseline. Likely related to rhabdomyolysis. Elevated troponin- Likely demand ischemia and rhabdomyolysis. Troponin trend flat. Parkinsonism- Continue home meds. PT OT eval Hypothyroidism- Continue home Synthroid History of prostate cancer s/p surgery Hypokalemia/Hypophosphatemia- monitor and replete. DVT prophylaxis- Heparin drip Dispo- PT OT recommends rehab. await clinical stability. I spent a total of 50 minutes coordinating, documenting and providing care for this patient excluding time spent in performance of separately billed services Admission and Anticipated Discharge Date Admission Date: November 24, 2023 Subjective Patient seen and examined. Reports chest wall swelling is improved. Still has right upper extremity pain especially with movement. Denies any cough, shortness of breath. Reports tremors at baseline. Reports lower extremity edema is much improved. Denies other complaints on review of system Physical Exam Constitutional: + well hydrated; no acute distress Elderly man Eyes: PERRL, conjunctivae normal, anicteric sclerae ENMT: external ear and nose normal, oropharynx normal Respiratory: normal respiratory effort, lungs clear to auscultation Cardiovascular: Rate/Rhythm: regular rate and regular rhythm Chest (Breasts): Additional Comments: Compression wrap over right chest wall Gastrointestinal (Abdomen): normal bowel sounds, soft, nontender, no hepatosplenomegaly Musculoskeletal: RUE edema +LE edema bilaterally (trace) Neurologic: PERRL, EOMI, accommodation nl, no face palsy, no dysarthria Psychiatric: A+Ox3, euthymic affect Results & Data Results & Data Vital Signs (Past 12 Hours) Vital Signs Temp Pulse Pulse Resp BP Pulse Ox O2 Del Method 12/04/23 16:15 Room Air 12/04/23 15:18 81 12/04/23 15:12 37.0 C 89 18 152/71 H 96 Room Air 12/04/23 11:45 36.5 C 89 18 110/68 96 Room Air 12/04/23 07:14 36.5 C 84 16 149/74 H 97 Room Air Laboratory Results Abnormal lab results 12/03/23 12/04/23 Range/Units 22:45 06:12 WBC 11.63 H (4.8-10.8) K/ul RBC 2.71 L (4.70-6.10) M/uL Hgb 7.8 L 8.2 L (14.0-18.0) g/dl Hct 22.9 L 25.4 L (42.0-52.0) % Plt Count 436 H (130-400) K/uL MPV 8.9 L (9.4-12.4) fL Heparin Anti-Xa, Unfract 0.10 L (0.3-0.7) IU/ml Sodium 134 L (136-145) mmol/L Glucose 108 H (70-99(Fasting)) mg/dl Calcium 7.7 L (8.6-10.3) mg/dl
[2023-12-05 08:01] LABS: Hematocrit (blood only) 23.4 % (42.0-52.0); Hemoglobin 7.6 g/dl (14.0-18.0); Mean Corpuscular Hemoglobin 30.6 pg (25.0-34.0); Mean Corpuscular Hgb Conc 32.5 g/dL (32.0-36.0); Mean Corpuscular Volume 94.4 fL (80.0-100.0); Mean Platelet Volume 8.8 fL (9.4-12.4); Platelet Count 435 K/uL (130-400); RDW Coefficient of Variation 14.6 % (11.5-14.5); RDW Standard Deviation 46.3 fL (36.4-46.3); Red Blood Count 2.48 M/uL (4.70-6.10); White Blood Count 12.82 K/ul (4.8-10.8)
[2023-12-05 08:14] LABS: BUN Creatinine Ratio 11.3 (10-20); Calcium 7.6 mg/dl (8.6-10.3); Creatinine Clr Calc Pharmacy 72.7 ml/min; Est GFR (African American) 99.9 ml/min; Est GFR (Non-African American) 86.2 ml/min; Magnesium 1.9 mg/dl (1.7-2.4); Phosphorus 2.3 mg/dl (2.5-4.9); Potassium 4.2 mmol/L (3.5-5.1)
[2023-12-05 08:20] LABS: ANTI-Xa, UFH(UnfractionatedHep 0.18 IU/ml (0.3-0.7)
[2023-12-05] MEDS: HEPARIN SOD (PORCINE) 1000 UNIT/ML IV ONE (11:28)
--- NOTE | 2023-12-05 12:22 | Hospitalist Progress Note ---
Date of Service December 05, 2023 Assessment & Plan (1) Acute DVT (deep venous thrombosis): (2) Rhabdomyolysis: (3) PO (acute kidney injury): (4) Elevated troponin: (5) Falls: (6) Parkinsons disease: (7) Hypokalemia: (8) Hypophosphatemia: Plan 78-year-old male with past medical history significant for parkinsonism, hypothyroidism, CKD stage III, prostate cancer was brought in because of falls and also found to rhabdomyolysis and PO. Currently living alone. 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 On presentation, pressure injury was noted on right posterior shoulder, erythema and swelling with the skin tears seen in the right buttocks region and Right upper extremity swollen. As per ER patient fell several times the day prior to presentation and apparently hit his head. Seems neighbors brought him back to his house then. And on the afternoon of presentation, patient was noted to be slumped over a barstool in his house. His right arm was hanging over the back of the chair and was leaning to the right. In the ED, he was afebrile, somewhat tachycardic and shaky. Labs showed WBC 21, creatinine 1.6, initial lactic 2.4 and repeat 1.2, total creatinine kinase 46716, troponin 76, procalcitonin 1.8 US LE- 1. Acute nonocclusive DVT in the distal left femoral vein. 2. No right lower extremity DVT. CXR- Patchy bibasilar airspace opacities most pronounced on the right. This is new from the prior study and likely represents a pneumonia. This could be secondary to aspiration. CT shoulder- 1. Diffuse subcutaneous edema. This may represent bland edema or cellulitis. 2. Edematous, swollen biceps and triceps muscles. Finding may represent myositis. 3. No fracture. Scapula appears intact. CT humerus- 1. Diffuse subcutaneous edema, bland edema or cellulitis. 2. Edema and swelling of the biceps and triceps muscles, potentially myositis. 3. Right lower lobe pneumonia. CT forearm- Subcutaneous edema of the right arm. This could reflect cellulitis or generalized anasarca. There is also body wall edema suggesting anasarca. CT C/A/P- 1. No acute traumatic process within the chest, abdomen, or pelvis. 2. A 4 mm indeterminate subpleural nodule within the left lower lobe. Echo with normal LVEF and grade I diastolic dysfunction 11/28 CT Chest: Interval development of a large right breast hematoma measuring up to approximately 11.5 cm with several areas of active extravasation. Additional areas of soft tissue hemorrhage/edema within the right shoulder and back redemonstrated. Aspiration Pneumonia with hypoxia, ?cellulitis RUE WBC 21->wnl. Procal elevated at 1.8, lactate 2.4->1.2. CXR with RLL PNA. MRSA nare negative. Blood culture negative Completed antibiotic course, c/w probiotic, blood clx negative. Hypoxia resolved. Now on room air Acute DVT LLE- Rt breast hematoma: US showed left Leg proximal non occlusive DVT. Was initially on heparin drip. This was held on 11/29/23 due to right breast hematoma noted that day Rt breast US 12/01 w/ slight increase in size of hematoma. Continue compressive wrap per Ortho Heparin drip resumed on 12/03/23 On 12/04/23, I discussed with Anticoagulation specialist Dr Moreno and she recommended continuing heparin drip and monitoring for 48hr from resumption and then transitioning to therapeutic eliquis if remains stable Transition to po eliquis this evening. Monitor Hb Anemia, Hemoglobin drop, Vitamin B12 deficiency Hb drop likely from hematoma Noted vit B12 def. Folate and iron stores ok. Continue with Vit B12 Rupture of distal biceps tendon due to fall- Ortho recs noted Continue conservative management and outpatient f/u with ortho in 10-14 days. No surgical treatment at this time Rhabdomyolysis due to falls in setting of Parkinsonism- CPK 37880->8000->2855->1716 -->1241. Managed with IVF PO on CKD stage III- Cr was 1.68 on presentation PO resolved. Cr back to baseline. Likely related to rhabdomyolysis. Elevated troponin- Likely demand ischemia and rhabdomyolysis. Troponin trend flat. Parkinsonism- Continue home meds. PT OT maribell Patient gave me details of how he takes his sinemet at home as his symptoms are worse at night and overnight disturbing sleep Reviewed his Neurologist outpatient note. Change timing of 9PM sinemet dose to 11PM bedtime per patient's request. I also ordered one dose at bedtime Hypothyroidism- Continue home Synthroid History of prostate cancer s/p surgery Hypokalemia/Hypophosphatemia- monitor and replete. DVT prophylaxis- Heparin drip Dispo- PT OT recommends rehab. I spent a total of 50 minutes coordinating, documenting and providing care for this patient excluding time spent in performance of separately billed services Admission and Anticipated Discharge Date Admission Date: November 24, 2023 Subjective Patient seen and examined. Reports chest wall swelling/pain continue to improve. RUE swelling improving as well Denies any cough, shortness of breath. Reports tremors from his Parkinson and worse overnight due to difference in how he takes his meds at home and in the hospital Denies other complaints on review of system Physical Exam Constitutional: + well hydrated; no acute distress Eyes: PERRL, conjunctivae normal, anicteric sclerae ENMT: external ear and nose normal, oropharynx normal Respiratory: normal respiratory effort, lungs clear to auscultation Cardiovascular: Rate/Rhythm: regular rate and regular rhythm Chest (Breasts): Additional Comments: Compression wrap over right chest wall Gastrointestinal (Abdomen): normal bowel sounds, soft, nontender, no hepatosplenomegaly Musculoskeletal: RUE edema +LE edema bilaterally improved Neurologic: PERRL, EOMI, accommodation nl, no face palsy, no dysarthria Psychiatric: A+Ox3, euthymic affect Results & Data Results & Data Vital Signs (Past 12 Hours) Vital Signs Temp Pulse Pulse Resp BP Pulse Ox O2 Del Method 12/05/23 12:06 36.5 C 94 H 18 125/74 95 Room Air 12/05/23 07:32 87 12/05/23 07:13 36.8 C 78 18 129/69 96 Room Air 12/05/23 02:40 37.0 C 95 H 16 127/69 95 Room Air Laboratory Results Abnormal lab results 12/05/23 Range/Units 07:27 WBC 12.82 H (4.8-10.8) K/ul RBC 2.48 L (4.70-6.10) M/uL Hgb 7.6 L (14.0-18.0) g/dl Hct 23.4 L (42.0-52.0) % RDW Coeff of Ok 14.6 H (11.5-14.5) % Plt Count 435 H (130-400) K/uL MPV 8.8 L (9.4-12.4) fL Heparin Anti-Xa, Unfract 0.18 L (0.3-0.7) IU/ml Sodium 133 L (136-145) mmol/L Calcium 7.6 L (8.6-10.3) mg/dl Phosphorus 2.3 L (2.5-4.9) mg/dl
[2023-12-05] MEDS: POLYETHYLENE (MIRALAX) 17 GM PACK PO PRN (12:32)
[2023-12-05] MEDS ORDERED: Nursing to Pharmacy Communication SCH (13:30)
[2023-12-05 17:53] LABS: ANTI-Xa, UFH(UnfractionatedHep 0.31 IU/ml (0.3-0.7)
[2023-12-05] MEDS: CARBIDOPA/LEVODOPA 25/100MG TAB PO SCH ×2 (18:51→22:51)
[2023-12-05] MEDS: APIXABAN 5 MG TABLET PO SCH (21:02)
[2023-12-06 07:04] LABS: Hematocrit (blood only) 24.3 % (42.0-52.0); Hemoglobin 8.1 g/dl (14.0-18.0); Mean Corpuscular Hgb Conc 33.3 g/dL (32.0-36.0); Mean Corpuscular Volume 93.1 fL (80.0-100.0); Mean Platelet Volume 8.8 fL (9.4-12.4); Platelet Count 506 K/uL (130-400); RDW Coefficient of Variation 14.4 % (11.5-14.5); Red Blood Count 2.61 M/uL (4.70-6.10); White Blood Count 10.98 K/ul (4.8-10.8)
[2023-12-06 08:44] LABS: ANTI-Xa, UFH(UnfractionatedHep 1.34 IU/ml (0.3-0.7)
--- NOTE | 2023-12-06 09:11 | Orthopedic Progress Note ---
Date of Service December 06, 2023 Assessment & Plan (1) Chest wall hematoma: Plan: The patient was educated regarding today's findings. Conservative care measures were discussed. Continue with the chest wrap for compression. He may apply ice to the chest wall over the next 48 hours, and then switch to moist heat. Continue to work on strengthening. Importance of elevating the right arm along with icing was discussed to improve his swelling. Continue PT/OT. He is not a surgical candidate at this time for repair of his distal biceps. We will continue to follow. Admission and Anticipated Discharge Date Admission Date: November 24, 2023 Subjective This 78 year old male is seen today in his room. He states that he is having some worsening tingling in his fingers. He feels his overall strength is improving, but he continues to have significant swelling in the right arm. He thinks that the hematoma in his right chest is also improving. No new complaints. He is having fairly pronounced tremors today. Physical Exam Physical Exam: General: Well-developed, elderly male, in no acute distress. No obvious discomfort. Was resting comfortably when I first entered the room. Once he is more awake, there is significant tremoring of the upper extremities today. More noticeable today than on previous exams. Skin: Warm and dry with good turgor. No rashes. He has minimal peripheral edema in his legs today. He has an increase in edema in the right arm compared to previous exams. His hand is somewhat swollen again. The edema of the right arm is more pronounced. No open wounds. His skin abrasion and slough on the right scapular is covered today with a bandage. Musculoskeletal: The patient has intact motor function to his lower extremities. There is also intact motor function to his upper extremities. He is able to raise his arm overhead. Supple motion of the shoulder. He is able to sit himself up and forward without assistance. Full motion of the elbow, wrist, and digits. He has no discomfort with palpation over the forearm or wrist. Mild discomfort with palpation over the distal bicep. Right chest wall is palpated and is nontender. He continues to have fullness in the right pectoral area. It is soft and supple. No additional areas of skin breakdown are noted. Neurologic: Gross sensation is intact across the upper and lower extremities by soft touch. Baseline peripheral neuropathy in the lower extremities is unchanged. Results & Data Vital Signs (Past 12 Hours) Vital Signs Temp Pulse Resp BP Pulse Ox O2 Del Method 12/06/23 07:03 36.7 C 82 18 131/71 95 Room Air 12/05/23 23:01 36.8 C 16 118/66 97 Room Air Laboratory Results CBC obtained this morning shows a white count of 10.98. H&H of 8.1 and 24.3, which is improved since yesterday. Platelets are elevated at 506,000. Heparin anti-Marguerite is elevated at 1.34.
--- NOTE | 2023-12-06 12:11 | Hospitalist Progress Note ---
Date of Service December 06, 2023 Assessment & Plan (1) Acute DVT (deep venous thrombosis): (2) Rhabdomyolysis: (3) PO (acute kidney injury): (4) Elevated troponin: (5) Falls: (6) Parkinsons disease: (7) Hypokalemia: (8) Hypophosphatemia: Plan 78-year-old male with past medical history significant for parkinsonism, hypothyroidism, CKD stage III, prostate cancer was brought in because of falls and also found to rhabdomyolysis and PO. Currently living alone. 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 On presentation, pressure injury was noted on right posterior shoulder, erythema and swelling with the skin tears seen in the right buttocks region and Right upper extremity swollen. As per ER patient fell several times the day prior to presentation and apparently hit his head. Seems neighbors brought him back to his house then. And on the afternoon of presentation, patient was noted to be slumped over a barstool in his house. His right arm was hanging over the back of the chair and was leaning to the right. In the ED, he was afebrile, somewhat tachycardic and shaky. Labs showed WBC 21, creatinine 1.6, initial lactic 2.4 and repeat 1.2, total creatinine kinase 05538, troponin 76, procalcitonin 1.8 US LE- 1. Acute nonocclusive DVT in the distal left femoral vein. 2. No right lower extremity DVT. CXR- Patchy bibasilar airspace opacities most pronounced on the right. This is new from the prior study and likely represents a pneumonia. This could be secondary to aspiration. CT shoulder- 1. Diffuse subcutaneous edema. This may represent bland edema or cellulitis. 2. Edematous, swollen biceps and triceps muscles. Finding may represent myositis. 3. No fracture. Scapula appears intact. CT humerus- 1. Diffuse subcutaneous edema, bland edema or cellulitis. 2. Edema and swelling of the biceps and triceps muscles, potentially myositis. 3. Right lower lobe pneumonia. CT forearm- Subcutaneous edema of the right arm. This could reflect cellulitis or generalized anasarca. There is also body wall edema suggesting anasarca. CT C/A/P- 1. No acute traumatic process within the chest, abdomen, or pelvis. 2. A 4 mm indeterminate subpleural nodule within the left lower lobe. Echo with normal LVEF and grade I diastolic dysfunction 11/28 CT Chest: Interval development of a large right breast hematoma measuring up to approximately 11.5 cm with several areas of active extravasation. Additional areas of soft tissue hemorrhage/edema within the right shoulder and back redemonstrated. Aspiration Pneumonia with hypoxia, ?cellulitis RUE WBC 21->wnl. Procal elevated at 1.8, lactate 2.4->1.2. CXR with RLL PNA. MRSA nare negative. Blood culture negative Completed antibiotic course, c/w probiotic, blood clx negative. Hypoxia resolved. Now on room air Acute DVT LLE- Rt breast hematoma: US showed left Leg proximal non occlusive DVT. Was initially on heparin drip. This was held on 11/29/23 due to right breast hematoma noted that day Rt breast US 12/01 w/ slight increase in size of hematoma. Continue compressive wrap per Ortho Heparin drip resumed on 12/03/23 On 12/04/23, I discussed with Anticoagulation specialist Dr Moreno and she recommended continuing heparin drip and monitoring for 48hr from resumption and then transitioning to therapeutic eliquis if remains stable Transitioned to po eliquis on 12/05/23 Hb remains stable so far Anemia, Hemoglobin drop, Vitamin B12 deficiency Hb drop likely from hematoma Noted vit B12 def. Folate and iron stores ok. Continue with Vit B12 Rupture of distal biceps tendon due to fall- Ortho recs noted Continue conservative management and outpatient f/u with ortho in 10-14 days. No surgical treatment at this time Rhabdomyolysis due to falls in setting of Parkinsonism- [place] 92247->8000->2855->1716 -->1241. Managed with IVF PO on CKD stage III- Cr was 1.68 on presentation PO resolved. Cr back to baseline. Likely related to rhabdomyolysis. Elevated troponin- Likely demand ischemia and rhabdomyolysis. Troponin trend flat. Parkinsonism- Continue home meds. PT OT eval Continue sinemet as currently prescribed Hypothyroidism Continue home Synthroid History of prostate cancer s/p surgery Hypokalemia/Hypophosphatemia- monitor and replete. DVT prophylaxis- Eliquis Dispo- PT OT recommends rehab. I spent a total of 40 minutes coordinating, documenting and providing care for this patient excluding time spent in performance of separately billed services Admission and Anticipated Discharge Date Admission Date: November 24, 2023 Subjective Patient seen and examined. Reports feeling better Reports RUE swelling and mobility improving Right chest wall swelling/pain much improved Denies any cough, shortness of breath. Reports constipation. Passing flatus Denies other complaints on review of system Physical Exam Constitutional: + well hydrated; no acute distress Eyes: PERRL, conjunctivae normal, anicteric sclerae ENMT: external ear and nose normal, oropharynx normal Respiratory: normal respiratory effort, lungs clear to auscultation Cardiovascular: Rate/Rhythm: regular rate and regular rhythm Gastrointestinal (Abdomen): normal bowel sounds, soft, nontender, no hepatosplenomegaly Musculoskeletal: RUE edema and ROM improving Neurologic: PERRL, EOMI, accommodation nl, no face palsy, no dysarthria Psychiatric: A+Ox3, euthymic affect Genitourinary: Barrera in situ Results & Data Results & Data Vital Signs (Past 12 Hours) Vital Signs Temp Pulse Resp BP Pulse Ox O2 Del Method 12/06/23 11:11 36.3 C L 71 18 140/72 96 Room Air 12/06/23 07:03 36.7 C 82 18 131/71 95 Room Air Laboratory Results Abnormal lab results 12/06/23 Range/Units 06:30 WBC 10.98 H (4.8-10.8) K/ul RBC 2.61 L (4.70-6.10) M/uL Hgb 8.1 L (14.0-18.0) g/dl Hct 24.3 L (42.0-52.0) % Plt Count 506 H (130-400) K/uL MPV 8.8 L (9.4-12.4) fL Heparin Anti-Xa, Unfract 1.34 H* (0.3-0.7) IU/ml
--- NOTE | 2023-12-06 12:24 | XRay Report ---
XR KUB/Abdomen 1 view CLINICAL HISTORY: Constipation. Rule out obstruction TECHNIQUE: 1 view of the abdomen was obtained. Comparison: None available at the time of this dictation. FINDINGS: Lung bases are unremarkable. Degenerative changes are seen in the visualized skeleton. The bowel gas pattern is nonobstructive. A moderate amount of stool is noted within the large bowel. IMPRESSION: Nonobstructive bowel gas pattern. ACT 112: Negative or not required by law. Electronically signed by: Trent Orr M.D. 12/06/2023 12:23 PM
[2023-12-06] MEDS: bisacodyL 10 MG SUPP PR STA (16:49)
[2023-12-06] MEDS: bisacodyL 10 MG SUPP PR ONE (16:49)
[2023-12-07 06:42] LABS: Hematocrit (blood only) 24.8 % (42.0-52.0); Hemoglobin 8.3 g/dl (14.0-18.0); Mean Corpuscular Hemoglobin 31.1 pg (25.0-34.0); Mean Corpuscular Hgb Conc 33.5 g/dL (32.0-36.0); Mean Corpuscular Volume 92.9 fL (80.0-100.0); Mean Platelet Volume 8.8 fL (9.4-12.4); Platelet Count 576 K/uL (130-400); RDW Coefficient of Variation 14.4 % (11.5-14.5); RDW Standard Deviation 46.5 fL (36.4-46.3); Red Blood Count 2.67 M/uL (4.70-6.10); White Blood Count 8.06 K/ul (4.8-10.8)
--- NOTE | 2023-12-07 12:37 | Hospitalist Progress Note ---
Date of Service December 07, 2023 Assessment & Plan (1) Acute DVT (deep venous thrombosis): (2) Rhabdomyolysis: (3) PO (acute kidney injury): (4) Elevated troponin: (5) Falls: (6) Parkinsons disease: (7) Hypokalemia: (8) Hypophosphatemia: Plan 78-year-old male with past medical history significant for parkinsonism, hypothyroidism, CKD stage III, prostate cancer was brought in because of falls and also found to rhabdomyolysis and PO. Currently living alone. Patient stated he ambulates with cane and walker [employer]CH[employer] though he is having a lot of tremors and shakiness. On presentation, pressure injury was noted on right posterior shoulder, erythema and swelling with the skin tears seen in the right buttocks region and Right upper extremity swollen. As per ER patient fell several times the day prior to presentation and apparently hit his head. Seems neighbors brought him back to his house then. And on the afternoon of presentation, patient was noted to be slumped over a barstool in his house. His right arm was hanging over the back of the chair and was leaning to the right. In the ED, he was afebrile, somewhat tachycardic and shaky. Labs showed WBC 21, creatinine 1.6, initial lactic 2.4 and repeat 1.2, total creatinine kinase 10893, troponin 76, procalcitonin 1.8 US LE- 1. Acute nonocclusive DVT in the distal left femoral vein. 2. No right lower extremity DVT. CXR- Patchy bibasilar airspace opacities most pronounced on the right. This is new from the prior study and likely represents a pneumonia. This could be secondary to aspiration. CT shoulder- 1. Diffuse subcutaneous edema. This may represent bland edema or cellulitis. 2. Edematous, swollen biceps and triceps muscles. Finding may represent myositis. 3. No fracture. Scapula appears intact. CT humerus- 1. Diffuse subcutaneous edema, bland edema or cellulitis. 2. Edema and swelling of the biceps and triceps muscles, potentially myositis. 3. Right lower lobe pneumonia. CT forearm- Subcutaneous edema of the right arm. This could reflect cellulitis or generalized anasarca. There is also body wall edema suggesting anasarca. CT C/A/P- 1. No acute traumatic process within the chest, abdomen, or pelvis. 2. A 4 mm indeterminate subpleural nodule within the left lower lobe. Echo with normal LVEF and grade I diastolic dysfunction 11/28 CT Chest: Interval development of a large right breast hematoma measuring up to approximately 11.5 cm with several areas of active extravasation. Additional areas of soft tissue hemorrhage/edema within the right shoulder and back redemonstrated. Aspiration Pneumonia with hypoxia, ?cellulitis RUE WBC 21->wnl. Procal elevated at 1.8, lactate 2.4->1.2. CXR with RLL PNA. MRSA nare negative. Blood culture negative Completed antibiotic course, c/w probiotic, blood clx negative. Hypoxia resolved. Now on room air Acute DVT LLE- Rt breast hematoma: US showed left Leg proximal non occlusive DVT. Was initially on heparin drip. This was held on 11/29/23 due to right breast hematoma noted that day Rt breast US 12/01 w/ slight increase in size of hematoma. Continue compressive wrap per Ortho Heparin drip resumed on 12/03/23 On 12/04/23, I discussed with Anticoagulation specialist Dr Moreno and she recommended continuing heparin drip and monitoring for 48hr from resumption and then transitioning to therapeutic eliquis if remains stable Transitioned to po eliquis on 12/05/23 Hb remains stable so far Anemia, Hemoglobin drop, Vitamin B12 deficiency Hb drop likely from hematoma Noted vit B12 def. Folate and iron stores ok. Continue with Vit B12 Rupture of distal biceps tendon due to fall- Ortho recs noted Continue conservative management and outpatient f/u with ortho in 10-14 days. No surgical treatment at this time Rhabdomyolysis due to falls in setting of Parkinsonism- CPK [id number]->8000->2855->1716 -->1241. Managed with IVF PO on CKD stage III- Cr was 1.68 on presentation PO resolved. Cr back to baseline. Likely related to rhabdomyolysis. Elevated troponin- Likely demand ischemia and rhabdomyolysis. Troponin trend flat. Parkinsonism- Continue home meds. PT OT eval Continue sinemet as currently prescribed Hypothyroidism Continue home Synthroid History of prostate cancer s/p surgery Hypokalemia/Hypophosphatemia- monitor and replete. DVT prophylaxis- Eliquis Dispo- PT OT recommends rehab. CM working on placement I spent a total of 35 minutes coordinating, documenting and providing care for this patient excluding time spent in performance of separately billed services Admission and Anticipated Discharge Date Admission Date: November 24, 2023 Subjective Patient seen and examined. RUE swelling much improved. Patient writing with right hand Reports feeling better Constipation resolved. Had a large BM yesterday Denies other complaints on review of system Physical Exam Constitutional: + well hydrated; no acute distress Eyes: PERRL, conjunctivae normal, anicteric sclerae ENMT: external ear and nose normal, oropharynx normal Respiratory: normal respiratory effort, lungs clear to auscultation Cardiovascular: Rate/Rhythm: regular rate and regular rhythm Gastrointestinal (Abdomen): normal bowel sounds, soft, nontender, no hepatosplenomegaly Musculoskeletal: RUE edema much improved Neurologic: PERRL, EOMI, accommodation nl, no face palsy, no dysarthria Psychiatric: A+Ox3, euthymic affect Results & Data Results & Data Vital Signs (Past 12 Hours) Vital Signs Temp Pulse Pulse Resp BP BP Pulse Ox 12/07/23 10:38 36.7 C 68 16 105/60 98 12/07/23 07:50 36.6 C 75 18 131/65 97 12/07/23 00:44 96 H O2 Del Method 12/07/23 10:38 Room Air 12/07/23 07:50 Room Air 12/07/23 00:44 Laboratory Results Abnormal lab results 12/07/23 Range/Units 06:06 RBC 2.67 L (4.70-6.10) M/uL Hgb 8.3 L (14.0-18.0) g/dl Hct 24.8 L (42.0-52.0) % RDW Std Deviation 46.5 H (36.4-46.3) fL Plt Count 576 H (130-400) K/uL MPV 8.8 L (9.4-12.4) fL
[2023-12-08 07:30] LABS: Hemoglobin 8.7 g/dl (14.0-18.0)
[2023-12-08 07:51] LABS: BUN Creatinine Ratio 15.5 (10-20); Bilirubin,Total 0.7 mg/dl (0.2-1.0); Calcium 8.2 mg/dl (8.6-10.3); Creatinine Clr Calc Pharmacy 69.7 ml/min; Est GFR (African American) 97.9 ml/min; Est GFR (Non-African American) 84.5 ml/min; Globulin 3.1 gm/dl (2.5-4.0); Potassium 4.2 mmol/L (3.5-5.1); Total Protein 6.1 gm/dl (6.0-8.3)
--- NOTE | 2023-12-08 11:13 | Hospitalist Progress Note ---
Date of Service December 08, 2023 Assessment & Plan (1) Acute DVT (deep venous thrombosis): (2) Rhabdomyolysis: (3) PO (acute kidney injury): (4) Elevated troponin: (5) Falls: (6) Parkinsons disease: (7) Hypokalemia: (8) Hypophosphatemia: Plan 78-year-old male with past medical history significant for parkinsonism, hypothyroidism, CKD stage III, prostate cancer was brought in because of falls and also found to rhabdomyolysis and PO. Currently living alone. Patient stated he ambulates with cane and walker [employer]ER though he is having a lot of tremors and shakiness. On presentation, pressure injury was noted on right posterior shoulder, erythema and swelling with the skin tears seen in the right buttocks region and Right upper extremity swollen. As per ER patient fell several times the day prior to presentation and apparently hit his head. Seems neighbors brought him back to his house then. And on the afternoon of presentation, patient was noted to be slumped over a barstool in his house. His right arm was hanging over the back of the chair and was leaning to the right. In the ED, he was afebrile, somewhat tachycardic and shaky. Labs showed WBC 21, creatinine 1.6, initial lactic 2.4 and repeat 1.2, total creatinine kinase 70026, troponin 76, procalcitonin 1.8 US LE- 1. Acute nonocclusive DVT in the distal left femoral vein. 2. No right lower extremity DVT. CXR- Patchy bibasilar airspace opacities most pronounced on the right. This is new from the prior study and likely represents a pneumonia. This could be secondary to aspiration. CT shoulder- 1. Diffuse subcutaneous edema. This may represent bland edema or cellulitis. 2. Edematous, swollen biceps and triceps muscles. Finding may represent myositis. 3. No fracture. Scapula appears intact. CT humerus- 1. Diffuse subcutaneous edema, bland edema or cellulitis. 2. Edema and swelling of the biceps and triceps muscles, potentially myositis. 3. Right lower lobe pneumonia. CT forearm- Subcutaneous edema of the right arm. This could reflect cellulitis or generalized anasarca. There is also body wall edema suggesting anasarca. CT C/A/P- 1. No acute traumatic process within the chest, abdomen, or pelvis. 2. A 4 mm indeterminate subpleural nodule within the left lower lobe. Echo with normal LVEF and grade I diastolic dysfunction 11/28 CT Chest: Interval development of a large right breast hematoma measuring up to approximately 11.5 cm with several areas of active extravasation. Additional areas of soft tissue hemorrhage/edema within the right shoulder and back redemonstrated. Aspiration Pneumonia with hypoxia, ?cellulitis RUE WBC 21->wnl. Procal elevated at 1.8, lactate 2.4->1.2. CXR with RLL PNA. MRSA nare negative. Blood culture negative Completed antibiotic course, c/w probiotic, blood clx negative. Hypoxia resolved. Now on room air Acute DVT LLE- Rt breast hematoma: US showed left Leg proximal non occlusive DVT. Was initially on heparin drip. This was held on 11/29/23 due to right breast hematoma noted that day Rt breast US 12/01 w/ slight increase in size of hematoma. Continue compressive wrap per Ortho Heparin drip resumed on 12/03/23 On 12/04/23, I discussed with Anticoagulation specialist Dr Moreno and she recommended continuing heparin drip and monitoring for 48hr from resumption and then transitioning to therapeutic eliquis if remains stable Transitioned to po eliquis on 12/05/23 Hb remains stable so far Anemia, Hemoglobin drop, Vitamin B12 deficiency Hb drop likely from hematoma Noted vit B12 def. Folate and iron stores ok. Continue with Vit B12 Rupture of distal biceps tendon due to fall- Ortho recs noted Continue conservative management and outpatient f/u with ortho in 10-14 days. No surgical treatment at this time Rhabdomyolysis due to falls in setting of Parkinsonism- CPK 59008->8000->2855->1716 -->1241. Managed with IVF PO on CKD stage III- Cr was 1.68 on presentation PO resolved. Cr back to baseline. Likely related to rhabdomyolysis. Elevated troponin- Likely demand ischemia and rhabdomyolysis. Troponin trend flat. Parkinsonism- Continue home meds. PT OT eval Continue sinemet as currently prescribed Hypothyroidism Continue home Synthroid History of prostate cancer s/p surgery Hypokalemia/Hypophosphatemia- monitor and replete. DVT prophylaxis- Eliquis Dispo- PT OT recommends rehab. CM working on placement I spent a total of 30 minutes coordinating, documenting and providing care for this patient excluding time spent in performance of separately billed services Admission and Anticipated Discharge Date Admission Date: November 24, 2023 Subjective Patient seen and examined. RUE swelling and mobility much improved. Denies other complaints on review of system Physical Exam Constitutional: + well hydrated; no acute distress Eyes: PERRL, conjunctivae normal, anicteric sclerae ENMT: external ear and nose normal, oropharynx normal Respiratory: normal respiratory effort, lungs clear to auscultation Cardiovascular: Rate/Rhythm: regular rate and regular rhythm Gastrointestinal (Abdomen): normal bowel sounds, soft, nontender, no hepatosplenomegaly Musculoskeletal: RUE edema resolving Neurologic: PERRL, EOMI, accommodation nl, no face palsy, no dysarthria Psychiatric: A+Ox3, euthymic affect Results & Data Results & Data Vital Signs (Past 12 Hours) Vital Signs Temp Pulse Resp BP Pulse Ox O2 Del Method 12/08/23 08:00 36.7 C 80 18 112/65 99 Room Air Laboratory Results Abnormal lab results 12/08/23 Range/Units 06:47 Hgb 8.7 L (14.0-18.0) g/dl Hct 27.0 L (42.0-52.0) % Sodium 134 L (136-145) mmol/L Calcium 8.2 L (8.6-10.3) mg/dl Albumin 3.0 L (3.4-5.0) gm/dl
--- NOTE | 2023-12-09 10:32 | Orthopedic Progress Note ---
Date of Service December 09, 2023 Assessment & Plan (1) Chest wall hematoma: Plan: The patient was educated regarding today's findings. Conservative care measures were discussed. He is without the chest wrap today. I do not think he requires it any longer. Tubigrip was placed on the right arm to prevent further edema from developing. He may apply ice to the chest wall or switch to moist heat depending on comfort. Continue to work on strengthening. Importance of elevating the right arm along with icing was discussed to improve his swelling. Continue PT/OT. He is not a surgical candidate at this time for repair of his distal biceps. Follow-up in the office on as scheduled for reexamination and to discuss injection therapy for his carpal tunnel. Admission and Anticipated Discharge Date Admission Date: November 24, 2023 Subjective This 78-year-old male is seen today in his room. He is now 16 days status post injury to his right bicep. He states he is doing well today. He has changed rooms, and he states he will be leaving today for center care. He denies any pain in the right chest wall, right shoulder, or right arm. He continues to have tingling in his right fingers, which he states is frustrating. He feels like he is getting stronger. No new complaints. Physical Exam Physical Exam: General: Well-deve loped, elderly mal e, in no acute dis tress. No obvious discomfort. Minim al tremoring today . Skin: Warm and d ry with good turgo r. No rashes. He has minimal perip heral edema in his legs today. He h as minimal edema i n the right arm co mpared to previous exams. His hand is almost normal. His skin abrasion and slough on the right scapular is covered today wit h a bandage. There is significant ec chymosis on his ri ght flank and hip, likely from his c hest hematoma. Mus culoskeletal: The patient has intact motor function to his lower extremi ties. There is al so intact motor fu nction to his uppe r extremities. He is able to raise his arm overhead. Supple motion of the shoulder. He is able to sit him self up and forwar d without assistan ce. Full motion o f the elbow, wrist , and digits. He has no discomfort with palpation ove r the forearm or w rist. No discomfo rt with palpation over the distal bi cep. Right chest wall is palpated a nd is nontender. He continues to gonzales ve mild fullness i n the right pector al area. It is so ft and supple. No additional areas of skin breakdown are noted. Neurolo gic: Gross sensati on is intact acros s the upper and lo wer extremities by soft touch. He h as tingling along the median nerve d istribution. Basel ine peripheral helio ropathy in the low er extremities is unchanged. Results & Data Vital Signs (Past 12 Hours) Vital Signs Temp Pulse Resp BP Pulse Ox Pulse Ox O2 Del Method 12/09/23 07:38 36.4 C L 86 17 127/69 99 Room Air 12/08/23 23:00 97 O2 Del Method 12/09/23 07:38 12/08/23 23:00 Room Air
--- NOTE | 2023-12-09 13:05 | Discharge Summary ---
Date of Service December 09, 2023 Admission HPI Per Admitting Provider 78-year-old male with past medical history significant for parkinsonism, hypothyroidism, CKD stage III, prostate cancer was brought in because of fall and also found to rhabdomyolysis and PO. Patient seems to be in the hospital. Currently living alone. Patient states he ambulates with cane and walker. He cooks his own food. He is vegetarian and likes to cook soft food. And swallows okay. Patient is having a lot of tremors and shakiness. Pressure injury seen on right posterior shoulder. And also there is erythema and swelling with the skin tears seen in the right buttocks region. Right upper extremity swollen. As per ER patient fell several times yesterday and apparently hit his head. Seems neighbors brought him back to his house yesterday. And today's afternoon patient noted to be slumped over a barstool in his house. His right arm was hanging over the back of the chair and was leaning to the right. Some blood is noted in his mouth region and was brought to the hospital. Patient denies any vomiting of blood. Denies any headache. States vision is okay. Denies any headache. Denies runny nose or sore throat or cough. Denies any chest pain or shortness of breath. Denies nausea , denies abdominal pain. He thinks he is moving his bowels and bladder okay. Currently afebrile. Somewhat tachycardic. Patient is shaky. Somewhat difficult to communicate with his shakiness but seems alert and oriented x 3 and answering simple questions appropriately. Past medical history. As mentioned above. Past surgical history. Radical prostate removal. Needlepoint biopsy of prostate. Social history. . No smoking. No alcohol use. Family history. Father had prostate cancer. Admission Exam Per Admitting Provider General- Tremors. Not in acute distress Head- atraumatic Eyes- PERRL. ENT- oropharynx dry, dry blood seen on lips and mouth Neck- supple, no JVD. Lungs- clear to auscultation no wheezing or crackles Heart- regular rhythm; tachycardia, no murmur, no gallop. Abdomen- normal bowel sounds, soft, nontender, no distension. Extremities- right upper extremity swollen, b/l lower extremity edema present. Neuro- alert, oriented x 3; PERRL, Tremors seen, no facial palsy; no dysarthria; moves extremities with difficulty. Skin- bruise and pressure ulcer seen on posterior aspect of right shoulder. erythema and swelling with skin tear of right buttock region Principal Diagnosis Aspiration pneumonitis Acute Left leg DVT Right breast hematoma Rupture of right biceps tendon Acute kidney injury Rhabdomyolysis Discharge Exam Constitutional + well hydrated; no acute distress Eyes PERRL, conjunctivae normal, anicteric sclerae ENMT external ear and nose normal, oropharynx normal Respiratory normal respiratory effort, lungs clear to auscultation Cardiovascular Rate/Rhythm: regular rate and regular rhythm Gastrointestinal (Abdomen) normal bowel sounds, soft, nontender, no hepatosplenomegaly Musculoskeletal RUE swelling mostly resolved Neurologic PERRL, EOMI, accommodation nl, no face palsy, no dysarthria Psychiatric A+Ox3, euthymic affect Discharge Data Allergies Allergy/AdvReac Type Severity Reaction Status Date / Time gluten Allergy Intermediate GI SYMPTOMS Verified 11/24/23 17:44 levofloxacin AdvReac Severe Patient Verified 11/24/23 17:44 states it makes him deathly sick. Consultations 11/24/23 20:23 ED Decision to Admit Stat 11/25/23 08:00 Consult Orthopedic Surgery Routine 11/29/23 08:51 Consult General Surgery Routine Procedures Performed Operation Date: 11/29/23 08:20 <No data on this case meets the specified criteria> Ordered Studies 11/24/23 17:11 CT cervical spine wo con Stat CT head/brain wo con Stat 11/24/23 17:28 CT abd pelvis wo con Stat CT chest diagnostic wo con Stat 11/24/23 23:59 CT arm [CT forearm RT w con] Urgent CT arm [CT humerus RT w con] Urgent CT shoulder RT wo con Urgent 11/25/23 US venous doppler LE BI Urgent US venous doppler UE RT Urgent 11/29/23 06:20 CT chest with contrast [CT chest diagnostic w con] Stat 12/02/23 08:43 US softtissue chstwall/uprback Urgent Hospital Course (1) Acute DVT (deep venous thrombosis): (2) Rhabdomyolysis: (3) PO (acute kidney injury): (4) Elevated troponin: (5) Falls: (6) Parkinsons disease: (7) Hypokalemia: (8) Hypophosphatemia: Plan 78-year-old male with past medical history significant for parkinsonism, hypothyroidism, CKD stage III, prostate cancer was brought in because of falls and also found to rhabdomyolysis and PO. Currently living alone. Patient stated he ambulates with cane and walker MEDICAL NURSE though he is having a lot of tremors and shakiness. On presentation, pressure injury was noted on right posterior shoulder, erythema and swelling with the skin tears seen in the right buttocks region and Right upper extremity swollen. As per ER patient fell several times the day prior to presentation and apparently hit his head. Seems neighbors brought him back to his house then. And on the afternoon of presentation, patient was noted to be slumped over a barstool in his house. His right arm was hanging over the back of the chair and was leaning to the right. In the ED, he was afebrile, somewhat tachycardic and shaky. Labs showed WBC 21, creatinine 1.6, initial lactic 2.4 and repeat 1.2, total creatinine kinase 25218, troponin 76, procalcitonin 1.8 US LE- 1. Acute nonocclusive DVT in the distal left femoral vein. 2. No right lower extremity DVT. CXR- Patchy bibasilar airspace opacities most pronounced on the right. This is new from the prior study and likely represents a pneumonia. This could be secondary to aspiration. CT shoulder- 1. Diffuse subcutaneous edema. This may represent bland edema or cellulitis. 2. Edematous, swollen biceps and triceps muscles. Finding may represent myositis. 3. No fracture. Scapula appears intact. CT humerus- 1. Diffuse subcutaneous edema, bland edema or cellulitis. 2. Edema and swelling of the biceps and triceps muscles, potentially myositis. 3. Right lower lobe pneumonia. CT forearm- Subcutaneous edema of the right arm. This could reflect cellulitis or generalized anasarca. There is also body wall edema suggesting anasarca. CT C/A/P- 1. No acute traumatic process within the chest, abdomen, or pelvis. 2. A 4 mm indeterminate subpleural nodule within the left lower lobe. Echo with normal LVEF and grade I diastolic dysfunction 11/28 CT Chest: Interval development of a large right breast hematoma measuring up to approximately 11.5 cm with several areas of active extravasation. Additional areas of soft tissue hemorrhage/edema within the right shoulder and back redemonstrated. Aspiration Pneumonia with hypoxia WBC 21->wnl. Procal elevated at 1.8, lactate 2.4->1.2. CXR with RLL PNA. MRSA nare negative. Blood culture negative Completed antibiotic course Hypoxia resolved. Now on room air Acute DVT LLE- Rt breast hematoma: US showed left Leg proximal non occlusive DVT. Was initially on heparin drip. This was held on 11/29/23 due to right breast hematoma noted that day Rt breast US 12/01 w/ slight increase in size of hematoma. Was evaluated by Ortho and managed with compressive dressing Heparin drip resumed on 12/03/23 Hb remained stable and was transitioned to po eliquis on 12/05/23 Hb remains stable so far Anemia, Vitamin B12 deficiency Noted vit B12 def. Folate and iron stores ok. Continue with Vit B12 Rupture of distal biceps tendon due to fall- Ortho evaluated and recommended conservative management Outpatient f/u with ortho in 10-14 days. Rhabdomyolysis due to falls in setting of Parkinsonism- CPK 35685->8000->2855->1716 -->1241. Managed with IVF PO on CKD stage III- Cr was 1.68 on presentation PO resolved. Cr back to baseline. Likely related to rhabdomyolysis. Elevated troponin- Likely demand ischemia and rhabdomyolysis. Troponin trend flat. Parkinsonism- Continue home meds. Continue sinemet Hypothyroidism Continue home Synthroid History of prostate cancer s/p surgery Total Time Total Time Spent Total Time Spent (In Minutes): 40 Total Time Includes: Examination of the Patient, Discharge Planning and Medication Reconciliation Discharge Plan Discharge Items Patient Disposition: Transfer Inpatient Rehab Fac Reason For Visit: FALL, RHABDO, PO Discharge Diagnosis: Aspiration pneumonitis Acute Left leg DVT Right breast hematoma Rupture of right biceps tendon Acute kidney injury Rhabdomyolysis Activity: As commented below Activity Comment: Per PT recommendations Non-emergency contact: Primary Care Provider and Surgeon Call non-emergency contact if: you have any medication questions Follow-up/Referrals: Galo Forte MD [Physician] - 12/12/23 9:30 am PCPNEGIN [Primary Care Provider] - Diet: Regular Addtl Attending Provider Instructions: Mr Carrillo You came in after a fall and was managed for the above listed diagnoses. You are being discharged to rehab. You need to be on blood thinner, Eliquis for 3-6 months Please ensure follow up with your Primary Doctor and Orthopedic surgeon. It was a pleasure taking care of you. Addtl Banking Supervisor Provider Instructions: Orthopedic Instructions: - Ice and elevation to right upper extremity and anterior chest wall as needed for pain and swelling. -May do activities as tolerated with the right upper extremity. -Encouraged range of motion exercises multiple times throughout the day. -May use right upper extremity as tolerated for activities of daily living. -May need an Rudy bandage or Tubigrip for compression as needed for swelling. -Follow-up with Dr. Forte as scheduled. Call [phone] with any questions, concerns or need to confirm or reschedule appointment. Pending Studies at Discharge: No Stand-Alone Forms: My [facility] Skilled Items Patient informed of condition?: Yes DNR: No Discharge Level of Care: Acute rehab Communicable Disease: No Discharge Prognosis: Stable Lines: None Urinary Catheter: No Medications and DC Order Prescriptions: New Eliquis 5 mg Tablet See Rx Instructions .ROUTE .COMPLEX Qty: 72 0RF Rx Instructions: Take 10mg twice a day till 12/12/23 morning and then 5mg twice a day from 12/12/23 evening ferrous sulfate 325 mg (65 mg iron) Tablet,Delayed Release (Dr/Ec) 325 mg PO QAM Qty: 30 0RF pantoprazole 40 mg Tablet,Delayed Release (Dr/Ec) 40 mg PO DAILY 30 Days Qty: 30 0RF cyanocobalamin (vitamin B-12) 500 mcg Tablet 1,000 mcg PO QAM Qty: 30 0RF folic acid 1 mg Tablet 1 mg PO QAM Qty: 30 0RF Continued carbidopa-levodopa [Sinemet] 25-100 mg tablet 2 tab PO QID 30 Days Qty: 240 3RF Changed levothyroxine 75 mcg tablet 75 mcg PO Q OTHER DAY 30 Days Qty: 15 0RF Rx Instructions: ALTERNATES 75 MCG AND 50 MCG EVERY OTHER DAY. levothyroxine 50 mcg tablet 50 mcg PO Q OTHER DAY 30 Days Qty: 15 0RF Rx Instructions: ALTERNATES 50 MCG AND 75 MCG EVERY OTHER DAY. ergocalciferol (vitamin D2) 1,250 mcg (50,000 unit) capsule 1,250 mcg PO MONTHLY 30 Days Qty: 1 0RF Rx Instructions: 1,250 mcg PO monthly as maintenance therapy; Discharge Orders: Discharge Order (Routine); Ordered 12/09/23 Ordered By: Omaira Prince/Other Patient Handouts: Rhabdomyolysis, Parkinson Disease Medicine Tips Admission Data Admit Date/Time: 11/24/23 22:05 Attending Provider: Omaira Petty I. Admit Provider: Daniel Bernal Primary Care Provider: PCP,NO Other Providers: Angela George at [facility]; [place],[facility]; Alexus Nix; Daniel Bernal; Galo Forte; Salvatore Austin Other Interventions: Discharge Summary Assessment (RN) Last Done: 12/09/23 13:07
== END 2023-12-09 13:31 | DRG 564 ==
LOC: ED 17:04 → 4W 22:05 → SUATTDRO 22:05 → 4W 23:08 → 3N 12-07 16:58